=== PATIENT | female | born 1965 | race Caucasian/White ===

== ENCOUNTER 2021-10-31 10:58 | Outpatient (CLI) | payer MEDICAID, SELFPAY ==
[2021-10-31 12:09] LABS: Absolute Lymphocyte Count 1.74 X10^3/uL (0.83-4.51); Absolute Neutrophil Count 4.7 X10^3/uL (2.0-7.7); Basophil# 0.05 X10^3/uL; Basophil% 0.7 % (0-1); Eosinophil# 0.08 X10^3/uL; Eosinophils% 1.1 % (0-5); Hematocrit 39.4 % (37-47); Hemoglobin 13.3 g/dL (12.0-15.0); Lymphocyte # 1.74 X10^3/ul (0.83-4.51); Lymphocyte % 24.4 % (19-41); Mean Corp Hgb Conc 33.8 g/dL (32-36); Mean Corpuscular Hgb 31.4 pg (27.0-32.0); Mean Corpuscular Volume 92.9 fL (81-99); Mean Platelet Vol. 10.6 fl (6.2-12.0); Monocyte# 0.54 X10^3/uL; Monocyte% 7.6 % (0-10); NRBC Flagged by Analyzer 0 % (0-5); Neutrophil % 65.9 % (47-70); Platelet Count 237 K/mm3 (150-450); RBC Distribution Width CV 11.6 % (11.6-14.6); RBC Distribution Width SD 39.2 fl (35.1-43.9); Red Blood Count 4.24 M/mm3 (4.2-5.4); White Blood Count 7.1 K/mm3 (4.4-11.0)
--- NOTE | 2021-10-31 12:21 | RAD_ITS ---
STUDY: X-RAY - RIGHT SHOULDER REASON FOR EXAM: Female, 56 years old. pain for several months, after reaching around seat in the car TECHNIQUE: 4 view(s) of the shoulder. COMPARISON: None. FINDINGS: Normal glenohumeral articulation. Normal acromioclavicular joint. Normal acromion. Normal humeral head and visualized proximal humerus. The soft tissue structures are unremarkable. There is no demonstrated fracture. Normal visualized pulmonary apex. RAD/Shoulder min 2 Views IMPRESSION: Normal x-ray examination of the shoulder. Electronically Signed: Eugene Winter MD at 14:02 EST ,
[2021-10-31 12:29] LABS: ALB/GLOB Ratio 0.9 RATIO (0.9-2.4); AST(SGOT) 50 U/L (15-37); Alanine Aminotransfer ALT/SGPT 104 U/L (13-56); Albumin, Serum 3.4 g/dL (3.2-5.0); Alkaline Phosphatase 68 U/L (45-117); Anion Gap 7 (5-15); BUN 16 mg/dL (7-18); BUN/Creat Ratio 24.4 RATIO (10-20); Calcium,Total 8.9 mg/dL (8.5-10.1); Chloride 104 mmol/L (98-107); Creatinine, Serum 0.66 mg/dL (0.55-1.02); EST Glomerular Filtration Rate 99 mL/min (>60); Est Glom Filt Rate - Afr Amer 120 mL/min (>60); Globulin 3.8 g/dL (2.2-4.2); Glucose 93 mg/dL (74-106); Potassium 4.1 mmol/L (3.5-5.1); Protein, Total 7.2 g/dL (6.4-8.2); Sodium Level 138 mmol/L (136-145); T4 Free Direct 0.91 ng/dL (0.76-1.46); Thyroid Stim Hormone (TSH) 0.88 uIU/mL (0.358-3.74)
[2021-10-31 12:52] LABS: Vitamin B12 657 pg/mL (211-911)
[2021-11-02 14:31] LABS: Hepatitis B Surface Antigen Non-Reactive (Nonreactive); Hepatitis C Antibody Non-Reactive (Nonreactive)
== END 2021-10-31 23:59 | disposition home or self-care (01) ==
PROVIDERS: PCP Internal Medicine; Referring Provider Internal Medicine; Visit Provider Internal Medicine
DX: M25.511 Pain in right shoulder (principal); F41.9 Anxiety disorder, unspecified; F32.A Depression, unspecified; R74.8 Abnormal levels of other serum enzymes
CPT/HCPCS: 36415; 73030; 80053; 82607; 84439; 84443; 85025; 86803; 87340

== ENCOUNTER 2021-11-05 08:18 | Outpatient (CLI) | payer MEDICAID, SELFPAY ==
--- NOTE | 2021-11-05 08:23 | US_ITS ---
STUDY: ABDOMINAL ULTRASOUND - RIGHT UPPER QUADRANT REASON FOR VISIT: Female, 56 years old RUQ Pain TECHNIQUE: Ultrasound evaluation of the right upper quadrant was performed with real-time and static adam-scale imaging. TECHNICAL QUALITY: Adequate. COMPARISON: None. FINDINGS: Liver: The liver measures 13.4 cm. There is increased echogenicity consistent with fatty infiltration. The bile ducts are within normal limits. There is hepatic color flow. The direction of portal flow is hepatopetal. There is no demonstrated mass lesion. Gallbladder: Normal distended gallbladder. The gallbladder wall measures 1.3 mm. There is a negative sonographic Pickens''s sign. There is no pericholecystic fluid. There are no gallstones. Common Bile Duct (C.B.D.): The common bile duct measures 4.7 mm. Pancreas: Normal size of the head, body and tail of the pancreas. There is normal echogenicity of the pancreas. There is no demonstrated pancreatic mass or cyst. Right Kidney: Normal size of the right kidney. The right kidney measures 11.0 x 4.9 x 5.1 cm. Normal renal cortex. The right cortex measures 2.4 cm. There is no demonstrated renal mass or cyst. There is no right hydronephrosis. US/Abdomen Limited IMPRESSION: Fatty liver, no discrete lesion Electronically Signed: Rudi Nicole MD at 8:59 EST ,
== END 2021-11-05 23:59 | disposition home or self-care (01) ==
LOC: US 08:18
PROVIDERS: PCP Internal Medicine; Referring Provider Internal Medicine; Visit Provider Internal Medicine
DX: R10.11 Right upper quadrant pain (principal)
CPT/HCPCS: 76705

== ENCOUNTER 2021-11-14 09:22 | Outpatient (CLI) | payer MEDICAID, SELFPAY ==
[2021-11-14 12:21] LABS: AST(SGOT) 68 U/L (15-37); Alanine Aminotransfer ALT/SGPT 150 U/L (13-56); Albumin, Serum 3.5 g/dL (3.2-5.0); Alkaline Phosphatase 63 U/L (45-117); Anion Gap 4 (5-15); BUN 19 mg/dL (7-18); BUN/Creat Ratio 24.5 RATIO (10-20); Calcium,Total 8.7 mg/dL (8.5-10.1); Chloride 106 mmol/L (98-107); Cholesterol 162 mg/dL (200); Creatinine, Serum 0.77 mg/dL (0.55-1.02); EST Glomerular Filtration Rate 82 mL/min (>60); Est Glom Filt Rate - Afr Amer 100 mL/min (>60); Globulin 3.4 g/dL (2.2-4.2); Glucose 92 mg/dL (74-106); High Density Lipoprotein 67 mg/dL; Potassium 3.4 mmol/L (3.5-5.1); Protein, Total 6.9 g/dL (6.4-8.2); Sodium Level 139 mmol/L (136-145); Triglycerides 81 mg/dL; Very Low Density Lipoprotein 16 mg/dL (5-40)
== END 2021-11-14 23:59 | disposition home or self-care (01) ==
LOC: BIMLAB 09:23
PROVIDERS: PCP Internal Medicine; Referring Provider Internal Medicine; Visit Provider Internal Medicine
DX: R74.8 Abnormal levels of other serum enzymes (principal); K76.0 Fatty (change of) liver, not elsewhere classified
CPT/HCPCS: 36415; 80053; 80061

== ENCOUNTER 2021-11-14 11:30 | Outpatient (RCR) | payer MEDICAID, SELFPAY ==
--- NOTE | 2021-11-07 12:03 | HP.PTEVAL ---
Patient's Visit Information TREY DOUGHERTY is a 56 year old F referred to Physical Therapy by Dr. Hanna Nuñez MD with a diagnosis of Pain in R shoulder. Date of Evaluation: 11/07/21 Physical Therapist: BRENDON Willams - Visit Plan Frequency: 1-2x /Week Duration: 4 Weeks Plan: 1-2X/ week for 4 weeks or as needed due to high co-pay for postural exercises, R RC and scapular strength, R shoulder PROM, AAROM AROM with HEP - Subjective They moved back last summer from [place] and started with mary ann Vogel and she is helping her with all kinds of things. She discussed R shoulder issue that happened in June. She was seat belted in the car and she reached and IR the R arm to reach for something. She did not hear anything but has burning sensation. She is having trouble with w coffee cup or lifting something in the fridge. She is having a compression problems in her spine that puts her out of commission and it always hurts when lifts something over 20#. She is moving now and better but she was down for 48 hours. Her insurance is $100 per visit so she needs HEP. The thoracic is what causes [place] and causes her not to be able to go to [facility]. She is having some fatty liver issues and not able to take a lot of pain meds. They did an x-ray and was fine for her R shoulder. She did not get an X-ray of thoracic. She gets those episodes about 3-4 of them over the last couple of weeks since the move. She does a lot of sitting throughout the day. Pt is a right side sleeper with arm overhead but cannot do that now. She lays on heat on her back over thoracic area also. She is not sleeping cause she is on new meds and causing her to speed up a little bit but she is getting used to the meds. - Pain R shoulder pain Pain Intensity (Out of 10): 1 Pain Intensity Range: 5 Comment: with movement over 90 degrees - Objective R handed: R 43# L 65#. Posture: sit with upright posture while in the clinic but admits to being lazy at home and slouching on the couch etc. C-spine AROM: Rot B 90%, and SB B 75% with increase tightness, Flexion 100% and ext 50%. Shoulder flexion R 120 and L 150, Abd R 96 and L 160 degrees, IR R L2 and T8, and ER R 45 and L 65. Palpation: tender under the R acrominion, not bicep groove. R UE MMT: flex 4-/5, abd 3+/5, ER 3+/5 and IR 4-/5 and L shoulder flex, abd, ER and IR 4/5. + HK on the R for anterior shoulder pain. - Balance/Special Test Scores Quick DASH Score: 52.2725 - Goals Goal 1:: I HEP Goal Time Frame: 2-4 Weeks Goal 2:: Increase R shoulder AROM to 150 degrees flexion and abduction painfree Goal Time Frame: 2-4 Weeks Goal 3:: Increase R shoulder strength by 1/2 muscle grade (at time of the eval: flex 4-/5, abd 3+/5, ER 3+/5 and IR 4-/5 ). Goal Time Frame: 4-6 Weeks Goal 4:: Be able to order picker/assembler her coffee cup with outstretched R arm without oain and weakness Goal Time Frame: 4-6 Weeks Goal 5:: Sit with upright posture during treatment sessions Goal Time Frame: 4-6 Weeks - Rehabilitation Potential Rehabilitation Potential: Good - Anticipated Interventions Patient/Client Instruction: Educate patient on: Condition, Plan of Care For the Purpose of:: To decrease pain, To increase ROM, To improve nutrient delivery to tissue, To improve muscle performance and motor function, To improve ability to perform ADL's, To increase tolerance to activity/condition/position, To improve performance and independence with ADL's, To improve health of tissue, To decrease soft tissue restriction, To increase flexibility/ROM Therapeutic Exercise to Include: Strength training, Postural training, Flexibilty training, Passive ROM, Active ROM, Scapular Strength/Stabilization For the Purpose of:: To decrease pain, To increase ROM, To improve nutrient delivery to tissue, To increase oxygenation perfusion, To improve muscle performance and motor function, To improve ability to perform ADL's, To increase tolerance to activity/condition/position, To improve performance and independence with ADL's, To improve health of tissue, To increase flexibility/ROM Manual Therapy Techniques to Include: Mobilization, Passive ROM, Soft tissue mobilization For the Purpose of:: To decrease pain, To increase ROM, To improve nutrient delivery to tissue, To improve muscle performance and motor function Thank you for the opportunity to evaluate your patient. For Medicare and Medicare HMO plans, please review the plan of care and approve it. It will need to be FAXED BACK to us at [phone] for Medicare purposes. For Medicare only, by signing this I certify the plan of care. Please let me know if there are questions or concerns regarding this plan of care. Physician Signature: Date:
--- NOTE | 2022-03-28 09:50 | HP.PTDCSUM_ITS ---
It has been my pleasure to treat TREY DOUGHERTY referred by Dr. Hanna Nuñez MD, with the diagnosis of Pain in R shoulder for a total of 2 visit(s). Discharge Date: 03/28/22 Please see the following information for a summary of their discharge status. Subjective: Corner stretch she can not do. She can not put her R arm around her . She is doing scapular squeezed and trying to open up her shoulder. She has been doing mid rows at home with green band. She wants more exercises to do at home cause she can not afford more PT. R shoulder pain Pain Intensity (Out of 10): 5 Objective/Function: Pt had a hard time with wand supine ER with a towel due to pain at end range. Pt had full understanding of HEP and not to push to far into pain Goal 1:: I HEP Goal 2:: Increase R shoulder AROM to 150 degrees flexion and abduction painfree Goal 3:: Increase R shoulder strength by 1/2 muscle grade (at time of the eval: flex 4-/5, abd 3+/5, ER 3+/5 and IR 4-/5 ). Goal 4:: Be able to apple picking supervisor her coffee cup with outstretched R arm without oain and weakness Goal 5:: Sit with upright posture during treatment sessions Plan: DC PT. Pt to call in in 3-4 weeks to let us know if needs additional PT. 1-2X/ week for 4 weeks or as needed due to high co-pay for postural exercises, R RC and scapular strength, R shoulder PROM, AAROM AROM with HEP Discharge Comments: DC PT If there are questions or concerns regarding this patient's physical therapy, please feel free to call me at [phone]. Thank you for the referral of this patient. Sincerely, Renetta Mcdonald, MPT Balance/Gait/Functional tests - Balance/Special Test Scores Quick DASH Score: [phone]
== END 2021-11-14 19:00 | disposition home or self-care (01) ==
LOC: PT 11:30
PROVIDERS: PCP Internal Medicine; Referring Provider Internal Medicine; Visit Provider Internal Medicine
DX: M25.511 Pain in right shoulder (principal)
CPT/HCPCS: 97110; 97161

== ENCOUNTER 2021-11-21 11:57 | Outpatient (CLI) | payer MEDICAID, SELFPAY ==
[2021-11-21 16:12] LABS: GGTP 36 U/L (5-55)
[2021-11-23 17:06] LABS: Anti-Smooth Muscle ABS 5 Units (0-19)
[2021-11-23 17:07] LABS: ANTINUCLEAR ANTIBODIES DIRECT Negative (Negative)
== END 2021-11-21 23:59 | disposition home or self-care (01) ==
LOC: BIMLAB 11:58
PROVIDERS: PCP Internal Medicine; Referring Provider Internal Medicine; Visit Provider Internal Medicine
DX: R74.8 Abnormal levels of other serum enzymes (principal)
CPT/HCPCS: 36415; 82977; 83516; 86038; 86225; 86235

== ENCOUNTER 2021-11-22 14:13 | Outpatient (CLI) | payer MEDICAID, SELFPAY ==
--- NOTE | 2021-11-22 14:14 | RAD_ITS ---
STUDY: X-RAY - LUMBAR SPINE REASON FOR EXAM: Female, 56 years old. Upper lumbar back pain TECHNIQUE: 2 view(s) of the lumbar spine were obtained. COMPARISON: None FINDINGS: Normal lumbar lordosis. There is no substantial scoliosis. There is a normal alignment of the vertebrae. Normal vertebral bodies and endplates. Normal disc space heights. The soft tissue structures are unremarkable. RAD/Lumbar Spine 2 or 3 Views IMPRESSION: Normal x-ray examination of the lumbar spine. Electronically Signed: Rylan Gil MD at 14:46 EDT ,
--- NOTE | 2021-11-22 14:14 | RAD_ITS ---
STUDY: X-RAY - THORACIC SPINE REASON FOR EXAM: Female, 56 years old. Midline Back pain, approximately T7 TECHNIQUE: 2 view(s) of the thoracic spine were obtained. COMPARISON: None. FINDINGS: Normal kyphosis of the thoracic spine. Mild dextroscoliosis of the upper thoracic spine. Normal thoracic vertebrae and endplates. Normal disc space heights. The soft tissue structures are unremarkable. RAD/Thoracic Spine 3 Views IMPRESSION: Mild dextroscoliosis of the upper thoracic spine. Electronically Signed: Rylan Gil MD at 14:46 EDT ,
--- NOTE | 2021-11-22 14:14 | RAD_ITS ---
STUDY: X-RAY - CERVICAL SPINE REASON FOR EXAM: Female, 56 years old. RUE paresthesia and neck pain TECHNIQUE: 5 view(s) of the cervical spine were obtained. COMPARISON: None FINDINGS: Normal anterior atlantoaxial articulation. Normal odontoid process. Normal cervical lordosis. There is multi-level endplate spondylosis. There is multi-level degenerative disc disease with multilevel disc space narrowing. Normal visualized intervertebral neuroforamina. The soft tissue structures are unremarkable. RAD/Cerv Spine 4 or 5 Views IMPRESSION: Focal degenerative disc disease at C5/C6 and MRI would be useful. Electronically Signed: Rylan Gil MD at 14:44 EDT ,
== END 2021-11-22 23:59 | disposition home or self-care (01) ==
LOC: MTRAD 14:14
PROVIDERS: PCP Internal Medicine; Referring Provider Physician Assistant; Visit Provider Physician Assistant
DX: M54.50 Low back pain, unspecified (principal); R20.2 Paresthesia of skin; M54.6 Pain in thoracic spine; M25.511 Pain in right shoulder; G89.29 Other chronic pain; M54.2 Cervicalgia
CPT/HCPCS: 72050; 72072; 72100

== ENCOUNTER 2021-11-30 14:25 | Outpatient (CLI) | payer MEDICAID, SELFPAY ==
[2021-11-30 16:18] LABS: Erythrocyte Sedimentation Rate 6 mm/hr (0-30)
[2021-11-30 16:33] LABS: Prothrombin Time (Protime)PT. 12.1 SECONDS (11.7-14.9)
[2021-11-30 16:41] LABS: CRP < 2.90 mg/L (0.0-3.0); Ferritin 382 ng/mL (8-252); LDH 191 U/L (84-246)
[2021-12-02 14:10] LABS: Anti-Centromere B Ab <0.2 AI (0.0-0.9); Anti-Chromatin <0.2 AI (0.0-0.9); Anti-Jo <0.2 AI (0.0-0.9); Anti-Scleroderma-70 AB <0.2 AI (0.0-0.9); RNP Ab 0.7 AI (0.0-0.9); SJOGREN'S Anti-SS-A test < 0.2 AI (0.0-0.9); SJOGREN'S Anti-SS-B test < 0.2 AI (0.0-0.9); Smith Ab <0.2 AI (0.0-0.9)
[2021-12-02 16:55] LABS: Anti-dsDNA Ab <1 IU/mL (0-9)
[2021-12-06 21:07] LABS: Angiotensin Convert Enzyme 37 U/L (14-82); Ceruloplasmin 34.9 mg/dL (19.0-39.0); Cytoplasmic Ab (C-ANCA) <1:20 titer (Neg:<1:20)
[2021-12-06 22:21] LABS: Anti-Smooth Muscle ABS 5 Units (0-19); Copper, Serum or Plasma 158 ug/dL (80-158); Haptoglobin 104 mg/dL (33-346); Perinuclear Ab (P-ANCA) <1:20 titer (Neg:<1:20)
== END 2021-11-30 23:59 | disposition home or self-care (01) ==
LOC: LAB 14:26
PROVIDERS: PCP Internal Medicine; Referring Provider Nurse Practitioner Adult Health; Visit Provider Nurse Practitioner Adult Health
DX: K76.0 Fatty (change of) liver, not elsewhere classified (principal)
CPT/HCPCS: 36415; 82164; 82390; 82525; 82728; 83010; 83516; 83615; 85610; 85652; 86140; 86225; 86235; 86256

== ENCOUNTER 2021-12-02 07:29 | Outpatient (CLI) | payer MEDICAID, SELFPAY ==
--- NOTE | 2021-12-02 07:31 | US_ITS ---
STUDY: ABDOMINAL ULTRASOUND - ELASTOGRAPHY REASON FOR VISIT: Female, 56 years old. Fatty infiltration of the liver. TECHNIQUE: Liver stiffness measurements were obtained on a AKT RS 85 ultrasound machine using a CA 1-7 probe following the SRU guidelines. 3 measurements were obtained using a 2-D-SWE method. The IQR/M was 25% suggesting a quality data set. TECHNICAL QUALITY: Adequate. COMPARISON: Comparison is made with prior examination dated 11/05/2021. FINDINGS: Liver: Fatty infiltration of the liver. Median liver stiffness measured 6.3 kPa. US/Elastography Parenchyma/Organ IMPRESSION: Liver stiffness measures 6.3 kPa compatible with F2-F3 (Mild to moderate liver fibrosis) Metavir score. Electronically Signed: Constantino Rosa MD at 9:11 EDT ,
== END 2021-12-02 23:59 | disposition home or self-care (01) ==
LOC: US 07:30
PROVIDERS: PCP Internal Medicine; Referring Provider Nurse Practitioner Adult Health; Visit Provider Nurse Practitioner Adult Health
DX: K76.0 Fatty (change of) liver, not elsewhere classified (principal)
CPT/HCPCS: 76981

== ENCOUNTER → 2022-01-02 | Outpatient (CLI) | payer MEDICAID, SELFPAY ==
[2022-01-02 15:59] LABS: Absolute Lymphocyte Count 1.97 X10^3/uL (0.83-4.51); Basophil# 0.05 X10^3/uL; Basophil% 0.7 % (0-1); Eosinophil# 0.03 X10^3/uL; Eosinophils% 0.4 % (0-5); Hematocrit 38.7 % (37-47); Hemoglobin 12.7 g/dL (12.0-15.0); Lymphocyte # 1.97 X10^3/ul (0.83-4.51); Lymphocyte % 25.9 % (19-41); Mean Corp Hgb Conc 32.8 g/dL (32-36); Mean Corpuscular Hgb 32.2 pg (27.0-32.0); Mean Corpuscular Volume 98.2 fL (81-99); Mean Platelet Vol. 11.4 fl (6.2-12.0); Monocyte# 0.55 X10^3/uL; Monocyte% 7.2 % (0-10); NRBC Flagged by Analyzer 0 % (0-5); Neutrophil # 4.98 X10^3/uL (2.7-7.7); Neutrophil % 65.5 % (47-70); Platelet Count 215 K/mm3 (150-450); RBC Distribution Width CV 12.1 % (11.6-14.6); RBC Distribution Width SD 43.9 fl (35.1-43.9); Red Blood Count 3.94 M/mm3 (4.2-5.4); White Blood Count 7.6 K/mm3 (4.4-11.0)
[2022-01-02 16:17] LABS: Ferritin 268 ng/mL (8-252)
== END | disposition home or self-care (01) ==
LOC: BIMLAB 13:45
PROVIDERS: PCP Internal Medicine; Visit Provider Internal Medicine
DX: R79.89 Other specified abnormal findings of blood chemistry (principal)
CPT/HCPCS: 36415; 82728; 85025

== ENCOUNTER → 2022-01-04 | Outpatient (CLI) | payer MEDICAID, SELFPAY ==
--- NOTE | 2022-01-04 11:06 | MRI_ITS ---
STUDY: MRI RIGHT SHOULDER REASON FOR EXAM: Right shoulder pain and limited range of motion. TECHNIQUE: Standardized fat and water weighted pulse sequences were obtained in all 3 orthogonal planes. COMPARISON: Radiographs 10/31/2021. FINDINGS: Normal supraspinatus tendon. Normal infraspinatus tendon. Normal subscapularis tendon. Normal teres minor tendon. Normal supraspinatus muscle. Normal infraspinatus muscle. Normal subscapularis muscle. Normal teres minor muscle. Normal glenohumeral articulation. There is a very small cyst in the greater tuberosity. Normal biceps labral complex. Normal intracapsular long biceps tendon. Normal labrum. Normal capsulo- ligamentous complex. Normal acromioclavicular articulation. There is a Type II morphology (curved), with a neutral orientation. There is a small volume of subacromial-subdeltoid bursal fluid (T2 coronal images 7-14). Normal visualized coracohumeral and coracoacromial ligaments. Normal deltoid muscle. Normal trapezius muscle. MRI/Upper Ext Joint Only(Routine) IMPRESSION: Mild subacromial-subdeltoid bursitis. No demonstrated rotator cuff tear. Electronically Signed: Chava Hardin MD at 12:48 EDT ,
== END | disposition home or self-care (01) ==
LOC: MRI 11:06
PROVIDERS: PCP Internal Medicine; Visit Provider Physician Assistant
DX: M25.511 Pain in right shoulder (principal)
CPT/HCPCS: 73221

== ENCOUNTER 2022-03-01 08:30 | Day surgery (SDC) | payer MEDICAID, SELFPAY ==
[2022-03-01] VITALS (9 sets, daily range): BP systolic 80–107; BP diastolic 49–71; PULSE 56–73; RESP 16; TEMP 36.1–36.3; O2SAT 98–100; BMI 18.8
[2022-03-01] MEDS: Lactated Ringers 1,000 ML 15 ML IV (08:54)
--- NOTE | 2022-03-01 09:06 | HP.PCM_ITS ---
History and Physical Date of Admission: 03/01/22 TREY DOUGHERTY, is a 56 F who presents to the office today for new diagnosis of fatty liver, episodes of RUQ pain, difficulty swallowing Fatty liver--AST and ALT were found to be elevated when labs were done for her checkup.? AST 68, ALT 150.? GGT normal at 36.? Alk phos normal 63.? Bili normal 0.6.? Right upper quadrant ultrasound showed liver 13.4 cm, fatty infiltration.? Normal gallbladder. Dysphagia--Getting episodes of difficulty swallowing especially potatoes, in past 4-5 mos. Has heartburn, new in past year. No nausea or vomiting. Has increased stress. Band of burning pain across upper abd, hurts if it gets bumped (costochondritis on exam) No change in bowels, has BM every other day. Has internal hemorrhoids that prolapse, started with difficult deliveries 30 yrs ago, wonders if they could be banded when she gets colonoscopy. Hasn't had a screening colonoscopy. RUQ pain --has had a few episodes of RUQ pain with vomiting and diarrhea, resolved spontaneously, better since avoiding greasy foods She took indomethacin since 2003 until very recently hemicran[facility], will now just take indomethacin prn for flares of pain ROS Const Constitutional: No fatigue Gastro GI: Positive for abdominal pain and heartburn Genitourinary-Female: Positive for urinary frequency Musc Musculoskeletal: Positive for numbness and tingling; No joint pain Skin Skin: No yellowing of the eye or itchy eyes Neuro Neurology: Positive for numbness, tingling and tremor(s) Psych Psychiatric: Positive for anxiety and Positive for depression Endo Endocrine: No fatigue Aller/Imm Allergy/Immunologic: No itchy eyes Julio Cesar/Lymp Hematologic/Lymphatic: No easy bleeding or easy bruising Exam Const General: cooperative, healthy appearing, no acute distress, well developed and well groomed Eyes Conjunctivae: conjunctivae normal Sclera: sclerae normal Resp Effort & Inspection: normal respiratory effort GI Inspection: normal to inspection Palpation: soft and nontender Musc Other: tender rib cartilage bilat anterior lower ribs and along sternum Quality Reporting Tobacco Screening ([facility] 138) Smoking Status: Never smoker Assessment and Plan Assessment and Plan (1) Fatty liver disease, nonalcoholic: ?Status:?Acute ? ? ? Orders:?Orders: ? Elastography Parenchyma/Organ Today ? ? ? LDH Today ? ? ? Prothrombin Time w/INR Today ? ? ? DIEGO Comprehensive Panel Today ? ? ? Angiotensin Convert Enzyme Today ? ? ? ANCA Today ? ? ? Anti-Smooth Muscle ABS Today ? ? ? Ceruloplasmin Today ? ? ? Copper, Serum or Plasma Today ?A ? ? Haptoglobin Today ? ? ? Ferritin Today ? ? ? CRP Today ? ? ? Erythrocyte Sed Rate Today ?Plan - Khushbu Suazo SAFETY AND HEALTH MANAGER, SAFETY AND HEALTH MANAGER-C: 56 yr old female with elevated AST and ALT, fatty liver on US. No alcohol, obesity, DM or dyslipidemia. Will complete biochemical w/u and will get liver elastography. Treatment based on results. We will call her with results. (2) Elevated liver enzymes: ?Status:?Acute ?Plan - Khushbu Suazo NP, SAFETY AND HEALTH MANAGER-C: Eval as for fatty liver (3) RUQ pain: ?Status:?Chronic ?Plan - Khushbu Suazo NP, SAFETY AND HEALTH MANAGER-C: Not occurring if she avoids fatty foods. Will get HIDA scan if persists. (4) Dysphagia: ?Status:?Acute ?Plan - Khushbu Suazo NP, SAFETY AND HEALTH MANAGER-C: Recent onset of occasional difficulty swallowing starchy foods. Will start PPPI. Will get EGD to evaluate for esophagitis, Michelle's, gastritis. Will also get screening colonoscopy. Hemorrhoid banding can be done then if needed. f/u 2 wks after endoscopy. I have re-examined the patient. There are no clinical changes since date of exam.
--- NOTE | 2022-03-01 09:30 | IMM_PTH ---
PATIENT: TREY DOUGHERTY LOC: EN U#:[id number] AGE/SX: 56/F ROOM: RE03/01/[address]: Dr. Elvis Dietrich DO : 1965 BED: DIS: 03/01/2022 SPEC #: [id number] RECD: 03/01/22 13:51 STATUS: ELIAS REQ #: [id number] NATALIA: 03/01/22 09:[address]: Elvis Dietrich DEPT: IMMUNOHISTOCHEMISTRY RECD BY: Nicky Aguilar ENTERED: 03/01/22 13:52 SP TYPE: IMMUNO OTHR DR: Dr. Hanna Nuñez MD Tissues: A - Stomach, NOS Procedures: H Pylori (initial) PHYSICIAN & INSTITUTION [place] [address] SPECIMEN INFORMATION: Tissue Source: A ? Gastric body biopsy Clinical Info: Elevated liver enzymes, RUQ pain, dysphagia Specimen Number: [id number] CPT code: 52804 METHODOLOGY: Deparaffinized sections of prefer/formalin-fixed tissue or PAP/DQ stained slides are incubated with monoclonal/polyclonal antibodies/oligonucleotide probes. Localization is made via biotin free immunoperoxidase method. Appropriate controls are performed and reacted as expected. Results on target cell population are indicated in the following table: RESULTS: ANTIBODY / CLONE RESULT Block A H Pylori (polyclonal) negative These tests were developed and their performance characteristics determined by [facility]. They may not have been cleared or approved by the U.S. Food and Drug Administration. The FDA has determined that such clearance or approval is not necessary. The above immunohistochemical/dualISH markers are ordered and reviewed by the Pathologist. INTERPRETATION: A. Gastric body, biopsy: Negative for Helicobacter pylori organisms. AM:bryant 03/02/2022
--- NOTE | 2022-03-01 09:30 | COLBX_PTH ---
PATIENT: TREY DOUGHERTY LOC: EN U#:[id number] AGE/SX: 56/F ROOM: RE03/01/[address]: Dr. Elvis Dietrich DO : 1965 BED: DIS: 03/01/2022 SPEC #: [id number] RECD: 03/01/22 13:28 STATUS: ELIAS MARTHA #: [id number] NATALIA: 03/01/22 09:[address]: Elvis Dietrich DEPT: SURGICAL PATHOLOGY RECD BY: Elma Salmeron ENTERED: 03/01/22 13:54 SP TYPE: COLON BX OTHR DR: Dr. Hanna Nuñez MD Tissues: A - Gastric mucous membrane B - Gastric mucous membrane C - Duodenum, NOS D - Esophagus, NOS Procedures: Special Stain Group II Surgery Specimen Level IV Alcian Blue/PAS (control) HEADER OPERATION: Colonoscopy, EGD, biopsies (MAC), hemorrhoid banding PRE-OP DIAGNOSIS: Elevated liver enzymes, RUQ pain, dysphagia TISSUE SUBMITTED: A ? Gastric body biopsy, B ? Gastric pylorus biopsy, C ? Duodenum biopsy, D ? Distal esophagus biopsy MICROSCOPIC DIAGNOSIS A. Gastric body, biopsy: Mild chronic gastritis. See comment. B. Gastric pylorus, biopsy: Mild chronic inflammation. C. Duodenum, biopsy: No pathologic change. D. Distal esophagus, biopsy: Gastroesophageal junctional mucosa with mild chronic inflammation. No evidence of goblet cell metaplasia. See comment. AM:bryant 03/02/2022 COMMENT A. The results of immunohistochemistry for Helicobacter pylori will be reported separately ([id number]). D. Alcian blue/PAS stain with matched control supports the above diagnosis. MICROSCOPIC DESCRIPTION Slides are reviewed. GROSS DESCRIPTION A - Received in fixative is one container labeled with the patient's name and designated gastric body biopsy. The specimen consists of two irregular fragments of light espinal soft tissue that in aggregate measure 0.6 x 0.3 x 0.1 cm. The specimen is totally submitted in one cassette. B - Received in fixative is one container labeled with the patient's name and designated gastric pylorus biopsy. The specimen consists of one irregular fragment of light espinal soft tissue that measures 0.3 x 0.3 x 0.1 cm. The specimen is totally submitted in one cassette. C - Received in fixative is one container labeled with the patient's name and designated duodenum biopsy. The specimen consists of multiple irregular fragments of light espinal soft tissue that in aggregate measure 0.5 x 0.5 x 0.1 cm. The specimen is totally submitted in one cassette. D - Received in fixative is one container labeled with the patient's name and designated distal esophagus biopsy. The specimen consists of two irregular fragments of light espinal soft tissue that in aggregate measure 0.6 x 0.3 x 0.1 cm. The specimen is totally submitted in one cassette. / SJ:rg 03/01/2022 TC:3 CPT: 82624 x4, 74917
--- NOTE | 2022-03-01 10:45 | OP.EGD_ITS ---
Patient Name: Jaylin West Procedure Date: 03/01/2022 9:56 AM Date of : 1965 Age: 56 Procedure: Upper GI endoscopy Indications: Epigastric abdominal pain, Dysphagia, Suspected esophageal reflux Providers: Elvis Dietrich DO Medicines: Monitored Anesthesia Care Patient Profile: This is a 56 year old female. Refer to note in patient chart for documentation of history and physical. Complications: No immediate complications. Procedure: Pre-Anesthesia Assessment: - Prior to the procedure, a History and Physical was performed, and patient medications and allergies were reviewed. The risks and benefits of the procedure and the sedation options and risks were discussed with the patient. All questions were answered and informed consent was obtained. Patient identification and proposed procedure were verified by the physician in the pre-procedure area. Mental Status Examination: alert and oriented. Airway Examination: normal oropharyngeal airway and neck mobility. Respiratory Examination: clear to auscultation. CV Examination: normal. Prophylactic Antibiotics: The patient does not require prophylactic antibiotics. Prior Anticoagulants: The patient has taken no previous anticoagulant or antiplatelet agents. ASA Grade Assessment: II - A patient with mild systemic disease. After reviewing the risks and benefits, the patient was deemed in satisfactory condition to undergo the procedure. The anesthesia plan was to use moderate sedation / analgesia (conscious sedation). Immediately prior to administration of medications, the patient was re-assessed for adequacy to receive sedatives. The heart rate, respiratory rate, oxygen saturations, blood pressure, adequacy of pulmonary ventilation, and response to care were monitored throughout the procedure. The physical status of the patient was re-assessed after the procedure. After obtaining informed consent, the endoscope was passed under direct vision. Throughout the procedure, the patient's blood pressure, pulse, and oxygen saturations were monitored continuously. The colonoscope was introduced through the mouth, and advanced to the second part of duodenum. The upper GI endoscopy was accomplished without difficulty. The patient tolerated the procedure well. Scope In: 9:59:54 AM Scope Out: 10:05:36 AM Total Procedure Duration Time 0 hours 5 minutes 42 seconds Findings: LA Grade A (one or more mucosal breaks less than 5 mm, not extending between tops of 2 mucosal folds) esophagitis with no bleeding was found 36 to 38 cm from the incisors. Biopsies were taken with a cold forceps for histology. Verification of patient identification for the specimen was done. Estimated blood loss was minimal. A mild Schatzki ring was found in the lower third of the esophagus. A guidewire was placed and the scope was withdrawn. Dilation was performed with a Savary dilator with no resistance at 33 Fr. The dilation site was examined and showed moderate improvement in luminal narrowing. Estimated blood loss was minimal. Patchy mildly erythematous mucosa without bleeding was found in the gastric antrum and at the pylorus. Biopsies were taken with a cold forceps for histology. Verification of patient identification for the specimen was done. Estimated blood loss was minimal. The first portion of the duodenum was normal. Biopsies were taken with a cold forceps for histology. Verification of patient identification for the specimen was done. Estimated blood loss was minimal. Impression: - LA Grade A reflux esophagitis. Biopsied. - Mild Schatzki ring. Dilated. - Erythematous mucosa in the antrum and pylorus. Biopsied. - Normal first portion of the duodenum. Biopsied. Recommendation: - Discharge patient to home. - Resume previous diet. - Continue present medications. - Await pathology results. Procedure Code(s): --- Professional --- 05347, Esophagogastroduodenoscopy, flexible, transoral; with insertion of guide wire followed by passage of dilator(s) through esophagus over guide wire 57737, 59,51, Esophagogastroduodenoscopy, flexible, transoral; with biopsy, single or multiple CPT copyright 2017 [employer] [place] [employer]. All rights reserved. The codes documented in this report are preliminary and upon residential tech review may be revised to meet current compliance requirements. Elvis Dietrich DO 03/01/2022 10:45:04 AM This report has been signed electronically. Number of Addenda: 1 Note Initiated On: 03/01/2022 9:56 AM Addendum Number: 1 Addendum Date: 06/06/2022 6:02:08 AM MAC was used as sedation for this procedure. Elvis Dietrich DO 06/06/2022 6:02:13 AM This report has been signed electronically.
--- NOTE | 2022-03-01 10:46 | OP.CCLET_ITS ---
06/06/2022 Hanna Nuñez MD [address] [place] [address] [place] [address] Re : Upper GI endoscopy procedure for Jaylin West Dear Dr. Nuñez This procedure was performed on Tuesday, March 01, 2022. My impressions and recommendations are as follows: Impressions : - LA Grade A reflux esophagitis. Biopsied. - Mild Schatzki ring. Dilated. - Erythematous mucosa in the antrum and pylorus. Biopsied. - Normal first portion of the duodenum. Biopsied. Recommendations : - Discharge patient to home. - Resume previous diet. - Continue present medications. - Await pathology results. My findings are described in the full procedure note, which is enclosed. If I can be of further assistance, please feel free to contact me at . Sincerely, Elvis Dietrich, 03/01/2022 10:45:04 AM This report has been signed electronically.
--- NOTE | 2022-03-01 10:50 | OP.COLON_ITS ---
Patient Name: Jaylin West Procedure Date: 03/01/2022 10:05 AM Date of : 1965 Age: 56 Procedure: Colonoscopy Indications: Screening for colorectal malignant neoplasm Providers: Elvis Dietrich DO Medicines: Monitored Anesthesia Care Patient Profile: This is a 56 year old female. Refer to note in patient chart for documentation of history and physical. Last Colonoscopy: none. The patient's first colonoscopy is today. Complications: No immediate complications. Procedure: Pre-Anesthesia Assessment: - Prior to the procedure, a History and Physical was performed, and patient medications and allergies were reviewed. The risks and benefits of the procedure and the sedation options and risks were discussed with the patient. All questions were answered and informed consent was obtained. Patient identification and proposed procedure were verified by the physician in the pre-procedure area. Mental Status Examination: alert and oriented. Airway Examination: normal oropharyngeal airway and neck mobility. Respiratory Examination: clear to auscultation. CV Examination: normal. Prophylactic Antibiotics: The patient does not require prophylactic antibiotics. Prior Anticoagulants: The patient has taken no previous anticoagulant or antiplatelet agents. ASA Grade Assessment: II - A patient with mild systemic disease. After reviewing the risks and benefits, the patient was deemed in satisfactory condition to undergo the procedure. The anesthesia plan was to use moderate sedation / analgesia (conscious sedation). Immediately prior to administration of medications, the patient was re-assessed for adequacy to receive sedatives. The heart rate, respiratory rate, oxygen saturations, blood pressure, adequacy of pulmonary ventilation, and response to care were monitored throughout the procedure. The physical status of the patient was re-assessed after the procedure. After I obtained informed consent, the scope was passed under direct vision. Throughout the procedure, the patient's blood pressure, pulse, and oxygen saturations were monitored continuously. The colonoscope was introduced through the anus and advanced to the cecum, identified by the appendiceal orifice, IC valve and transillumination. The colonoscopy was performed without difficulty. The patient tolerated the procedure well. The quality of the bowel preparation was good. Scope In: 10:08:39 AM Scope Withdrawal Time 0 hours 16 minutes 8 seconds Scope Out: 10:30:50 AM Total Procedure Duration Time 0 hours 22 minutes 11 seconds Findings: Hemorrhoids were found on perianal exam. Bleeding internal hemorrhoids were found during retroflexion. The hemorrhoids were medium-sized and Grade III (internal hemorrhoids that prolapse but require manual reduction). A hemorrhoid was isolated with endoscopy. The KAYA ligator was positioned over the hemorrhoid at the left lateral position. Suction was applied and one rubber band was placed over the hemorrhoid. This was checked to make certain that the muscularis was free of the band. Post-banding digital rectal exam showed band in good position. There were no complications. There was no bleeding. The patient tolerated the procedure well. The patient appeared stable and comfortable at the end of the procedure. The exam was otherwise without abnormality on direct and retroflexion views. Impression: - Hemorrhoids found on perianal exam. - Bleeding internal hemorrhoids. Banded. - The examination was otherwise normal on direct and retroflexion views. - No specimens collected. Recommendation: - Discharge patient to home. - Resume previous diet. - Continue present medications. - Repeat colonoscopy in 10 years for screening purposes. Procedure Code(s): --- Professional --- 83079, Colonoscopy, flexible; with band ligation(s) (eg, hemorrhoids) CPT copyright 2017 [employer]. All rights reserved. The codes documented in this report are preliminary and upon show host review may be revised to meet current compliance requirements. Elvis Dietrich DO 03/01/2022 10:49:37 AM This report has been signed electronically. Number of Addenda: 1 Note Initiated On: 03/01/2022 10:05 AM Addendum Number: 1 Addendum Date: 06/06/2022 6:02:21 AM MAC was used as sedation for this procedure. Elvis Dietrich DO 06/06/2022 6:02:27 AM This report has been signed electronically.
--- NOTE | 2022-03-01 10:51 | OP.CCLET_ITS ---
06/06/2022 Hanna Nuñez MD [address] [place] [address] [place] [address] Re : Colonoscopy procedure for Jaylin West Dear Dr. Nuñez This procedure was performed on Tuesday, March 01, 2022. My impressions and recommendations are as follows: Impressions : - Hemorrhoids found on perianal exam. - Bleeding internal hemorrhoids. Banded. - The examination was otherwise normal on direct and retroflexion views. - No specimens collected. Recommendations : - Discharge patient to home. - Resume previous diet. - Continue present medications. - Repeat colonoscopy in 10 years for screening purposes. My findings are described in the full procedure note, which is enclosed. If I can be of further assistance, please feel free to contact me at . Sincerely, Elvis Dietrich, 03/01/2022 10:49:37 AM This report has been signed electronically.
[2022-03-01] MEDS: Acetaminophen 500 MG Tablet 1000 MG PO (11:19)
== END 2022-03-01 11:49 | disposition home or self-care (01) ==
LOC: EN 08:31 → AC 08:32
PROVIDERS: PCP Internal Medicine; Referring Provider Internal Medicine; Visit Provider Internal Medicine Gastroenterology
PROC: 0DJD8ZZ Inspection of Lower Intestinal Tract, Via Natural or Artificial Opening Endoscopic (ICD-10-PCS; CPT 45378; principal; 2022-03-01 09:25)
DX: Z12.11 Encounter for screening for malignant neoplasm of colon (principal); K22.2 Esophageal obstruction; K21.00 Gastro-esophageal reflux disease with esophagitis, without bleeding; K64.2 Third degree hemorrhoids; K29.50 Unspecified chronic gastritis without bleeding; R13.10 Dysphagia, unspecified; K76.0 Fatty (change of) liver, not elsewhere classified; R10.13 Epigastric pain; Z79.899 Other long term (current) drug therapy
CPT/HCPCS: 45398; 43239; 43248; 88305; 88313; 88342; J7120; J2405

== ENCOUNTER → 2022-03-22 | Outpatient (CLI) | payer MEDICAID, SELFPAY ==
[2022-03-22 16:51] LABS: Absolute Lymphocyte Count 2.01 X10^3/uL (0.83-4.51); Absolute Neutrophil Count 6.2 X10^3/uL (2.0-7.7); Basophil# 0.05 X10^3/uL; Basophil% 0.6 % (0-1); Eosinophil# 0.07 X10^3/uL; Eosinophils% 0.8 % (0-5); Hematocrit 41.4 % (37-47); Hemoglobin 13.6 g/dL (12.0-15.0); Lymphocyte # 2.01 X10^3/ul (0.83-4.51); Lymphocyte % 22.3 % (19-41); Mean Corp Hgb Conc 32.9 g/dL (32-36); Mean Corpuscular Hgb 32.6 pg (27.0-32.0); Mean Corpuscular Volume 99.3 fL (81-99); Mean Platelet Vol. 10.8 fl (6.2-12.0); Monocyte# 0.62 X10^3/uL; Monocyte% 6.9 % (0-10); NRBC Flagged by Analyzer 0 % (0-5); Neutrophil # 6.23 X10^3/uL (2.7-7.7); Platelet Count 247 K/mm3 (150-450); RBC Distribution Width CV 11.9 % (11.6-14.6); RBC Distribution Width SD 43.4 fl (35.1-43.9); Red Blood Count 4.17 M/mm3 (4.2-5.4)
[2022-03-22 19:39] LABS: ALB/GLOB Ratio 1.1 RATIO (0.9-2.4); AST(SGOT) 23 U/L (15-37); Alanine Aminotransfer ALT/SGPT 40 U/L (13-56); Albumin, Serum 3.4 g/dL (3.2-5.0); Alkaline Phosphatase 62 U/L (45-117); Anion Gap 7 (5-15); BUN 23 mg/dL (7-18); BUN/Creat Ratio 29.2 RATIO (10-20); Calcium,Total 9.2 mg/dL (8.5-10.1); Chloride 110 mmol/L (98-107); Creatinine, Serum 0.79 mg/dL (0.55-1.02); EST Glomerular Filtration Rate 81 mL/min (>60); Est Glom Filt Rate - Afr Amer 97 mL/min (>60); Ferritin 162 ng/mL (8-252); Globulin 3.1 g/dL (2.2-4.2); Glucose 126 mg/dL (74-106); Potassium 3.8 mmol/L (3.5-5.1); Protein, Total 6.5 g/dL (6.4-8.2); Sodium Level 143 mmol/L (136-145)
== END | disposition home or self-care (01) ==
LOC: BIMLAB 15:54
PROVIDERS: PCP Internal Medicine; Referring Provider Internal Medicine; Visit Provider Internal Medicine
DX: R79.89 Other specified abnormal findings of blood chemistry (principal); R74.8 Abnormal levels of other serum enzymes; K76.0 Fatty (change of) liver, not elsewhere classified
CPT/HCPCS: 36415; 80053; 82728; 85025

== ENCOUNTER 2022-10-17 13:54 | Emergency (ER) | payer BC, SELFPAY ==
[2022-10-17 13:55] VITALS: BP 107/62; PULSE 86; RESP 18; TEMP 36.4; O2SAT 100; BMI 16.7
--- NOTE | 2022-10-17 14:46 | EX.ED.VIS.PS ---
HPI HPI - Psych History of Present Illness Chief Complaint: Suicidal Informant: patient and family Onset/Context/Timing Onset: Month(s) and - (Over the last year.) Context: Gradual Onset Timing: Continuous Current Severity: Moderate Maximum Severity: Moderate Associated Symptoms Associated Symptoms - Psych: Positive for Depressed and Suicidal Thoughts Specific plan (suicidal thought): Jump off a building or shoot herself. She has a gun at home. Narrative Narrative: 57-year-old female history of anxiety and depression. Chronic headaches. States that she has had suicidal thoughts for a year. It is gotten to the point where she does not think she can control it and might actually harm herself. She denies any prior attempts. She is considering jumping off an 8 story building. She also has a purchased loaded handgun at her home. She was already evaluated today by crisis. They sent her in for medical clearance. She is on Prozac from her primary care physician and does not believe that is controlling her symptoms. She denies any attempt or overdose attempt. Patient states if I am going to do it I am going to do it right. Prior similar symptoms: Yes Recent Illness/Hospitalization: No PFSH PFSH Medical History Adhesive capsulitis of right shoulder Anemia Anxiety Anxiety and depression Breast cyst Cardiology follow-up encounter Cervical radiculopathy Depression Difficulty swallowing Dysphagia Elevated liver enzymes Fatty liver Fatty liver disease, nonalcoholic Frequent headaches Gastric reflux H/O emotional problems Headache Health care maintenance Hemicrania continua History of skin cancer History of stress test Non-smoker Right shoulder pain RUQ pain Subacromial bursitis of right shoulder joint Home Medications meloxicam 15 mg tablet (Mobic) 15 mg PO DAILY #30 tabs 06/05/22 [Rx Last Taken Unknown] topiramate 25 mg tablet (Topamax) 25 mg PO BID #180 tabs 06/19/22 [Rx Last Taken Unknown] estradiol 2 mg tablet 2 mg PO BID #180 tabs 07/17/22 [Rx Last Taken Unknown] indomethacin 25 mg capsule 25 mg PO ONCE PRN headache #90 caps 07/26/22 [Rx Last Taken Unknown] venlafaxine 75 mg capsule,extended release 24 hr 75 mg PO DAILY #90 caps 09/11/22 [Rx Last Taken Unknown] Allergy/AdvReac Type Severity Reaction Status Date / Time iodine Allergy Intermediate Hives Verified 10/17/22 13:58 promethazine [From Phenergan] Allergy Mild Nausea Verified 10/17/22 13:58 Family History Father Skin cancer Surgical History History of hysterectomy History of tonsillectomy Social History Smoking Status: Never smoker alcohol intake: never substance use type: does not use what type of physical activity do you participate in: none ROS ROS ED ROS Narrative Denies recent illness. Constitutional Constitutional ED: Denies chills Eyes Eyes: Denies blurry vision Cardiovascular Cardiovascular: Denies chest pain Respiratory/Chest Respiratory/Chest: Denies cough Gastrointestinal Gastrointestinal: Denies abdominal pain Genitourinary Genitourinary ED: Denies dysuria or hematuria Musculoskeletal Musculoskeletal: Denies arthralgias Integumentary Denies abscess or Abrasions Neurologic Neurologic: Denies headache(s) Psychiatric Psychiatric: Denies anxiety Endocrine Endocrinology: Denies polydipsia Hematologic/Lymphatic Hematologic/Lymphatic: Denies easy bleeding Allergic/Immunologic Allergic/Immunologic ED: Denies mouth swelling or tongue swelling EXAM Physical Exam Narrative Exam Narrative: 57-year-old female no acute distress. Son at bedside. H EENT exam unremarkable atraumatic. Pupils round reactive light. No smell of alcohol. Neck nontender no signs of trauma. No lymphadenopathy. Lungs clear to auscultation bilaterally. Heart regular rhythm rate about 85 no murmur. Chest wall nontender. Abdomen soft nontender. Moving all 4 extremities. No lacerations nor any track donis. Back nontender. Neurologically she is awake and alert. Cooperative. Makes good eye contact. Calm and collected. Const Vital Signs: 10/17/22 13:55 Temperature 97.5 F L Temperature Source Temporal Pulse Rate 86 Respiratory Rate 18 Blood Pressure 107/62 Blood Pressure Mean 77 Pulse Ox 100 Oxygen Delivery Method Room Air Positive well nourished and well developed; Negative for obese, cachectic, contractures or unkempt General Appearance ED: well developed and NAD; Negative for unkempt, cachectic, contractures or pallor Nutritional Appearance: Negative for cachectic or obese HEENT Reports moist mucous membranes normocephalic and atraumatic; Negative for trauma or tenderness Eyes PERRL and EOMs intact bilaterally General Eye ED: Negative for pale conjunctiva or scleral icterus Neck no lymphadenopathy, supple and no JVD General: Negative for tenderness Resp normal respiratory effort and clear to auscultation bilaterally Effort and Inspection: Negative for retractions Auscultation: Negative for rales, rhonchi or wheezes Cardio S1 normal heart sound, S2 normal heart sound and no murmurs Palpation: Negative for other Rate: regular rate Rhythm: regular rhythm GI non-tender, non-distended and no masses Inspection: Negative for abdominal distention Auscultation: normoactive bowel sounds Palpation: soft; Negative for tender or guarding Back/Spine no CVA tenderness General Back: Negative for CVA tenderness Cervical Spine: Negative for cervical spine tenderness Thoracic Spine / Upper Back: Negative for thoracic spinal tenderness Lumbar Spine / Lower Back: Negative for lumbar spinal tenderness Coccyx: Negative for other Extremity normal to inspection General Extremety ED: Negative for edema, tenderness or other findings General Extremity: Negative for edema or other findings Neuro oriented x3, CN's II-XII intact bilaterally and no sensory deficits noted Sensorium / Orientation: alert, oriented to person, oriented to place and oriented to time; Negative for orientation impaired, confused, lethargic or stuporous Motor Exam: strength 5/5 throughout Psych mental status grossly normal, cooperative, affect normal, speech normal, activity/motor behavior normal and denies hallucinations; Negative for denies suicidal ideation Appearance: grossly normal; Negative for unkempt Attitude: calm, engaged, No paranoid, No withdrawn, No bizarre, No uncooperative, No evasive, No guarded, No belligerent, No agitated, No aggressive and No other Activity / Motor Behavior: appropriate eye contact Speech: normal speech, No incoherent, No excessive, No minimal, No slow, No rapid and No soft Mood & Affect: depressed Thought Process: normal thought process Thought Content: suicidality Attention / Concentration: attention grossly intact Memory / Cognition: memory grossly intact Insight: insight good Judgement: judgement good Skin General Skin Exam: Negative for jaundice or pallor Lesions: no lesions Rashes: no rashes Trauma: Negative for abrasion or laceration MDM MDM MDM Narrative Medical decision making narrative: 57-year-old female history of depression on Prozac year-long history of symptoms. Has a plan to either jump off a building or has a purchase loaded gun at home. I think she is a significant suicidal risk. She is medically cleared. Crisis is already evaluated her. She will get ED mental health screening labs. N/V placed to a mental health facility. She does currently have a sitter. Patient doing well at 3:55 PM. Awaiting mental health facility placement. Lab Data Attestation: I reviewed the patient's lab results. Lab results narrative: CBC normal. White count 8. H&H 14 and 44. Platelets 259. Electrolytes unremarkable gap of 7. BUN of 2 21 and creatinine is 0.9. Glucose 103. Alcohol negative. Urine tox screen negative. Labs: Laboratory Results - last 24 hr 10/17/22 10/17/22 10/17/22 14:15 14:15 14:15 WBC 8.3 RBC 4.47 Hgb 14.3 Hct 44.6 MCV 99.8 H MCH 32.0 MCHC 32.1 RDW Std Deviation 43.4 RDW Coeff of Colten 11.9 Plt Count 259 MPV 10.4 Immature Gran % (Auto) 0.500 Neut % (Auto) 65.7 Lymph % (Auto) 23.4 Toombs % (Auto) 9.3 Eos % (Auto) 0.6 Baso % (Auto) 0.5 Absolute Neuts (auto) 5.4 Absolute Lymphs (auto) 1.93 Nucleated RBC % 0 Sodium 143 Potassium 3.5 Chloride 108 H Carbon Dioxide 28.0 Anion Gap 7 BUN 21 H Creatinine 0.98 Estim Creat Clear Calc 50.49 Est GFR (MDRD) Af Amer 76 Est GFR (MDRD) Non-Af 63 BUN/Creatinine Ratio 21.5 H Glucose 103 Calcium 9.4 Urine Opiates Screen Urine Methadone Screen Ur Barbiturates Screen Ur Phencyclidine Scrn Ur Amphetamines Screen MDMA (Ecstasy) Screen U Benzodiazepines Scrn Urine Cocaine Screen U Cannabinoids Screen Ur Drug Screen Comment Ethyl Alcohol < 3.0 10/17/22 14:15 WBC RBC Hgb Hct MCV MCH MCHC RDW Std Deviation RDW Coeff of Colten Plt Count MPV Immature Gran % (Auto) Neut % (Auto) Lymph % (Auto) Toombs % (Auto) Eos % (Auto) Baso % (Auto) Absolute Neuts (auto) Absolute Lymphs (auto) Nucleated RBC % Sodium Potassium Chloride Carbon Dioxide Anion Gap BUN Creatinine Estim Creat Clear Calc Est GFR (MDRD) Af Amer Est GFR (MDRD) Non-Af BUN/Creatinine Ratio Glucose Calcium Urine Opiates Screen NEGATIVE Urine Methadone Screen NEGATIVE Ur Barbiturates Screen NEGATIVE Ur Phencyclidine Scrn NEGATIVE Ur Amphetamines Screen NEGATIVE MDMA (Ecstasy) Screen NEGATIVE U Benzodiazepines Scrn NEGATIVE Urine Cocaine Screen NEGATIVE U Cannabinoids Screen NEGATIVE Ur Drug Screen Comment Ethyl Alcohol Discharge Plan Triage Chief Complaint: Suicidal ED Provider: Thor Antoine Dx/Rx/DC Orders Clinical Impression: Depression, Depression with suicidal ideation Prescriptions: No Action meloxicam [Mobic] 15 mg tablet 15 mg PO DAILY Qty: 30 0RF Rx Instructions: Do not take in conjunction with other NSAIDs including indomethacin. topiramate [Topamax] 25 mg tablet 25 mg PO BID Qty: 180 1RF estradiol 2 mg tablet 2 mg PO BID Qty: 180 0RF indomethacin 25 mg capsule 25 mg PO ONCE PRN (Reason: headache) Qty: 90 0RF Rx Instructions: administer with food or milk venlafaxine 75 mg capsule,extended release 24hr 75 mg PO DAILY Qty: 90 0RF Primary Care Provider: Hanna Nuñez Referrals: Hanna Nuñez MD [Primary Care Provider] - Disposition Disposition: Psychiatric Hospital or Unit
[2022-10-17 14:56] LABS: Absolute Lymphocyte Count 1.93 X10^3/uL (0.83-4.51); Absolute Neutrophil Count 5.4 X10^3/uL (2.0-7.7); Basophil# 0.04 X10^3/uL; Basophil% 0.5 % (0-1); Eosinophil# 0.05 X10^3/uL; Eosinophils% 0.6 % (0-5); Hematocrit 44.6 % (37-47); Hemoglobin 14.3 g/dL (12.0-15.0); Lymphocyte # 1.93 X10^3/ul (0.83-4.51); Lymphocyte % 23.4 % (19-41); Mean Corp Hgb Conc 32.1 g/dL (32-36); Mean Corpuscular Volume 99.8 fL (81-99); Mean Platelet Vol. 10.4 fl (6.2-12.0); Monocyte# 0.77 X10^3/uL; Monocyte% 9.3 % (0-10); NRBC Flagged by Analyzer 0 % (0-5); Neutrophil # 5.43 X10^3/uL (2.7-7.7); Neutrophil % 65.7 % (47-70); Platelet Count 259 K/mm3 (150-450); RBC Distribution Width CV 11.9 % (11.6-14.6); RBC Distribution Width SD 43.4 fl (35.1-43.9); Red Blood Count 4.47 M/mm3 (4.2-5.4); White Blood Count 8.3 K/mm3 (4.4-11.0)
[2022-10-17 15:10] LABS: Anion Gap 7 (5-15); BUN 21 mg/dL (7-18); BUN/Creat Ratio 21.5 RATIO (10-20); Calcium,Total 9.4 mg/dL (8.5-10.1); Chloride 108 mmol/L (98-107); Creatinine, Serum 0.98 mg/dL (0.55-1.02); EST Glomerular Filtration Rate 63 mL/min (>60); Est Glom Filt Rate - Afr Amer 76 mL/min (>60); Estimated Creatinine Clearance 50.49 ml/min; Glucose 103 mg/dL (74-106); Potassium 3.5 mmol/L (3.5-5.1); Sodium Level 143 mmol/L (136-145)
[2022-10-17 15:13] LABS: Amphetamine Urine VISTA NEGATIVE (<1000 ng/mL); Barbiturate Urine VISTA NEGATIVE (< 200 ng/mL); Benzodiazepine Urine VISTA NEGATIVE (< 200 ng/mL); Cocaine Urine VISTA NEGATIVE (< 300 ng/mL); Ecstacy Urine VISTA NEGATIVE (< 500 ng/mL); Methadone Urine VISTA NEGATIVE (< 300 ng/mL); PCP Urine VISTA NEGATIVE (< 25 ng/mL); THC Urine VISTA NEGATIVE (< 50 ng/mL); Vista UDS pH Range 6
[2022-10-17 15:35] LABS: Alcohol, Blood (Medical)-Serum < 3.0 mg/dL
--- NOTE | 2022-10-17 16:46 | CM.ED ---
Addendum entered by Seble Vang 10/17/22 22:32: [facility] informed patient of her acceptance to [facility] as well as transport at 6am. Patient voiced understanding. Seble CHASE, SIDE GLUER Addendum entered by Seble Vang 10/17/22 21:33: WEST contacted [facility] Crisis staff to inquire about progress towards placement. WEST informed Elizabeth a copy of the pink slip was faxed to [facility] per their request earlier today. Elizabeth to follow up. Elizabeth with [facility] Crisis contacted [facility] with accepting information. Patient was accepted to [facility], [address], [address], [address] [id number]. WEST informed MD Gay of acceptance, nuclear unit operator to set up transportation. RN also informed of acceptance. Plan: [facility] Seble CHASE, SIDE GLUER Addendum entered by Seble Vang 10/17/22 19:33: WEST informed by nuclear unit operator [facility] was reviewing patient and needed a pink slip addressed to their facility faxed. WEST reviewed pink slip with MD Gay. WEST faxed pink slip to [facility] fax [phone] Plan: [facility] Seble CHASE, SIDE GLUER Addendum entered by Seble Vang 10/17/22 17:58: Elizabeth with [facility] Crisis informed WEST referrals were sent to [facility] as well as [facility] for review. Elizabeth to send referral to [facility] if referral is declined by other facilities. Seble CHASE, SIDE GLUER Original Note: Social Work Note WEST received a voicemail from Shahrzad at [facility], explaining patient was evaluated at their office and would need placement. WEST to fax documents to [facility] when patient is medically cleared. WEST informed MD Antoine a covid test was needed for placement, to order. Shahrzad from [facility] contacted WEST to inquire if patient was medically cleared. WEST explained patient's covid test was still pending. Shahrzad requested the documents be faxed to [facility] at their faxage number. Shahrzad explained [facility] had bed availability so a referral would go there as patient voiced interest in their facility. WEST faxed facesheet, labs, covid test and H&P to [facility] faxage number. WEST contacted [facility] Crisis and spoke with Elizabeth, informing her the documents were faxed and this process description writer has received verification that the fax sent. Elizabeth stated she would be checking for the fax and then sending a referral to [facility] for review. Plan: inpatient psych pending acceptance from facility, referral being sent to [facility]. Seble Vang MSW, JERRI
[2022-10-17 18:44] VITALS: BP 117/72; PULSE 77; RESP 16; O2SAT 95
[2022-10-17 23:31] VITALS: RESP 16; O2SAT 100
--- NOTE | 2022-10-17 23:33 | NURSING ---
report given to Heriberto at [facility].
[2022-10-17 23:43] VITALS: BP 103/63; PULSE 84; RESP 16; O2SAT 100
[2022-10-18] VITALS: RESP 17
[2022-10-18] MEDS: Zolpidem Tartrate 5 MG Tablet PO (00:15)
[2022-10-18 03:00] VITALS: RESP 16
[2022-10-18 03:41] VITALS: BP 119/84; PULSE 65; RESP 17; O2SAT 100
[2022-10-18 04:00] VITALS: RESP 14
[2022-10-18 05:00] VITALS: RESP 18
[2022-10-18 06:06] VITALS: BP 104/65; PULSE 66; RESP 16; O2SAT 98
[2022-10-18] MEDS: Meloxicam 15 MG Tablet PO (06:38)
== END 2022-10-18 07:02 ==
PROVIDERS: Emergency Provider Emergency Medicine; PCP Internal Medicine; Visit Provider Emergency Medicine
DX: R45.851 Suicidal ideations (principal); F41.9 Anxiety disorder, unspecified; R51.9 Headache, unspecified; F32.A Depression, unspecified; Z20.822 Contact with and (suspected) exposure to COVID-19
CPT/HCPCS: 80048; 80307; 82077; 85025; 87811; 99284

== ENCOUNTER → 2023-06-22 | Outpatient (CLI) | payer BC, SELFPAY ==
[2023-06-22 12:28] LABS: Absolute Lymphocyte Count 1.74 X10^3/uL (0.83-4.51); Absolute Neutrophil Count 2.7 X10^3/uL (2.0-7.7); Basophil# 0.04 X10^3/uL; Basophil% 0.8 % (0-1); Eosinophil# 0.09 X10^3/uL; Eosinophils% 1.8 % (0-5); Hematocrit 40.2 % (37-47); Hemoglobin 12.9 g/dL (12.0-15.0); Lymphocyte # 1.74 X10^3/ul (0.83-4.51); Lymphocyte % 34.7 % (19-41); Mean Corp Hgb Conc 32.1 g/dL (32-36); Mean Corpuscular Hgb 31.6 pg (27.0-32.0); Mean Corpuscular Volume 98.5 fL (81-99); Mean Platelet Vol. 10.6 fl (6.2-12.0); Monocyte# 0.41 X10^3/uL; Monocyte% 8.2 % (0-10); NRBC Flagged by Analyzer 0 % (0-5); Neutrophil # 2.72 X10^3/uL (2.7-7.7); Neutrophil % 54.3 % (47-70); Platelet Count 206 K/mm3 (150-450); RBC Distribution Width SD 43.8 fl (35.1-43.9); Red Blood Count 4.08 M/mm3 (4.2-5.4)
[2023-06-22 12:44] LABS: Anion Gap 4 (5-15); BUN 28 mg/dL (7-18); BUN/Creat Ratio 35.7 RATIO (10-20); Calcium,Total 9.1 mg/dL (8.5-10.1); Chloride 110 mmol/L (98-107); Creatinine, Serum 0.78 mg/dL (0.55-1.02); EST Glomerular Filtration Rate 81 mL/min (>60); Est Glom Filt Rate - Afr Amer 97 mL/min (>60); Glucose 95 mg/dL (74-106); Potassium 4.4 mmol/L (3.5-5.1); Sodium Level 142 mmol/L (136-145)
== END | disposition home or self-care (01) ==
LOC: BIMLAB 10:59
PROVIDERS: PCP Internal Medicine; Referring Provider Internal Medicine; Visit Provider Internal Medicine
DX: F41.9 Anxiety disorder, unspecified (principal); F32.A Depression, unspecified
CPT/HCPCS: 36415; 80048; 85025

== ENCOUNTER → 2023-07-13 | Outpatient (CLI) | payer BC, SELFPAY ==
[2023-07-13 08:07] VITALS: BP 87/53; PULSE 50; RESP 16; TEMP 36.7; O2SAT 98; BMI 17.9
[2023-07-13] MEDS: Lactated Ringers 1,000 ML 15 ML IV ×3 (08:27→08:59)
--- NOTE | 2023-07-13 08:27 | PCM.HP.BLA ---
History and Physical Date of Admission: 07/13/23 Date of Service: 06/28/23 MR#: [id number] Acct: [id number] Name: TREY DOUGHERTY Rep #: [id number] : 1965 Provider: Dr. Brittaney Martinez MD Age/Sex: 57/F Location: [facility] Status: Signed Intake Vital Signs 06/22/2310:25 06/28/2309:36 Height 5 ft 8 in 5 ft 8 in Weight: 119 lb 120 lb BMI 18.1 18.2 BP 92/68 102/68 Blood Pressure Location Lt brachial Rt brachial Position Sitting Sitting Respiration 16 17 Pulse 68 58 L Pulse Source Monitor Monitor Temp 98.6 F 97.4 F L Temp Source Temporal Temporal Pulse Oximetry (%) 97 99 Oxygen Delivery Method room air room air Intake Visit Reasons: Hemorrhoids Chief Complaint: hemorrhoids Is patient in pain?: No Allergies iodine Allergy (Intermediate, Verified 06/28/23 09:37) Hivespromethazine [From Phenergan] Allergy (Mild, Verified 06/28/23 09:37) Nausea Medications buspirone 5 mg tablet 5 mg PO BID PRN anxiety #60 tabs 11/22/22 [Rx Confirmed 06/28/23] escitalopram oxalate 20 mg tablet 20 mg PO DAILY #90 tabs 12/25/22 [Rx Confirmed 06/28/23] topiramate 25 mg tablet (Topamax) 25 mg PO BID #180 tabs 12/25/22 [Rx Confirmed 06/28/23] estradiol 2 mg tablet 2 mg PO DAILY #90 tabs 12/29/22 [Rx Confirmed 06/28/23] meloxicam 15 mg tablet See Rx Instructions .Route .COMPLEX #30 tabs 03/19/23 [Rx Confirmed 06/28/23] indomethacin 25 mg capsule 25 mg PO ONCE PRN headache #90 caps 04/27/23 [Rx Confirmed 06/28/23] trazodone 50 mg tablet 50 mg PO QHS PRN insomnia #60 tabs 06/22/23 [Rx Confirmed 06/28/23] PFSH Medical History Adhesive capsulitis of right shoulder Anemia Anxiety Anxiety and depression Breast cyst Cardiology follow-up encounter Cervical radiculopathy Depression Difficulty swallowing Dysphagia Elevated liver enzymes Fatty liver Fatty liver disease, nonalcoholic Frequent headaches Gastric reflux Generalized anxiety disorder with panic attacks H/O emotional problems Headache Health care maintenance Hemicrania continua Hemorrhoids History of skin cancer History of stress test Insomnia Non-smoker Right shoulder pain RUQ pain Subacromial bursitis of right shoulder joint Suicide attempt Surgical History History of hysterectomy History of tonsillectomy Family History Father Skin cancer Social History Smoking Status: Never smoker alcohol intake: never substance use type: does not use what type of physical activity do you participate in: none HPI HPI HPI: 57-year-old female presents due to hemorrhoids interested in having them excised. Patient had a colonoscopy 06/24 along with banding of internal hemorrhoid by Dr. Dietrich. Patient states that she does have residual hemorrhoid tissue as well as swelling at pain at times. Patient has tried suppositories and [id number] medications and still continues to have issues. Patient does occasionally have some bleeding as well. ROS General General: No weight change, appetite, fatigue, colon cancer, breast cancer or weakness HEENT HEENT: No difficulty swallowing, eye injury, eye surgery, swollen glands or hoarseness Endo Endocrine: No thyroid disease, diabetes mellitus, thyroid cancer, Hair loss, heat intolerance or cold intolerance Skin Skin: No rash or changing moles Musc Musculoskeletal: No back problems, arthritis, rheumatoid arthritis, gout or joint pain Cardio Cardiovascular: No murmur, pacemaker, heart disease, atrial fibrillation, high blood pressure, heart attack, heart stent, palpitations, shortness of breat with exertion or chest pain Psych Psychiatric: No depression, anxiety or hearing voices Resp Respiratory: No shortness of breath, No sleep apnea, No cough, No COPD, No asthma, No emphysema and No wheezing Gastro Gastrointestinal: No abdominal pain, No nausea or vomiting, No diarrhea, No constipation, No blood in stool, No acid reflux, Yes hemorrhoids, No ulcers, No gallbladder problem and No black,tarry stools Julio Cesar Hematologic: No blood thinners, No blood disorders, No bleeding, No anemia and No blood clots Neuro Neurologic: No system reviewed and no additional complaints, except as documented, No as per HPI, No abnormal gait, No abnormal hearing, No abnormal movements, No abnormal speech, No behavioral changes, No burning sensations, No confusion, No convulsions, No disequilibrium, No dizziness, No localized weakness, No frequent falls, No headache(s), No lack of coordination, No loss of vision, No memory loss, No numbness, No other visual disturbances, No radicular pain, No restless legs, No sensory deficit, No syncope, No tingling, No tremor(s), No weakness and No other Exam Const General: cooperative, healthy appearing, comfortable and no acute distress [facility] Head: normocephalic and atraumatic Neck Neck: supple Resp Effort & Inspection: normal respiratory effort Cardio Rate: regular rate GI Inspection: non-distended Palpation: soft Other: ERIKA: Inspection patient does have an external/internal hemorrhoid at 6:00 which is a grade 2-3, mild residual tissue at about 11:00, no mass on exam or gross blood. Skin General: no rashes or lesions noted Neuro General: CN's II-XI intact bilaterally Extrem General: normal to inspection Psych Mental Status: mental status grossly normal Attitude: cooperative Assessment and Plan Assessment and Plan (1) Hemorrhoids: Status: Chronic Plan Did discuss with patient that likely she would still have this residual hemorrhoidal tissue even with medication in the area at 6:00 does seem to be a grade 2/3 so likely would not resolve without surgery. Discussed the procedure of a hemorrhoidectomy including but not limited to risk of pain, infection, bleeding, and anesthesia. Patient no further question this time would like to proceed. 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 Brittaney Martinez M.D. Pager: [phone] [facility] [address] [place] [address], [facility], [address] [place] [address] Office: [phone] Coding Level of Care Code Off vis,new,level 3 Diagnoses Hemorrhoids K64.9 06/28/23 1312 <Electronically signed by Brittaney Martinez MD> Date Brittaney Martinez MD
--- NOTE | 2023-07-13 08:51 | EKG12_ITS ---
Test Reason : PREOP Blood Pressure : / mmHG Vent. Rate : 053 BPM Atrial Rate : 053 BPM P-R Int : 194 ms QRS Dur : 088 ms QT Int : 448 ms P-R-T Axes : 075 061 063 degrees QTc Int : 420 ms Sinus bradycardia Otherwise normal ECG When compared with ECG of 11-JUN-2009 11:56, No significant change was found Confirmed by JAIME VILLAGRAN, MARIA ([id number]), editor greeting card [employer] ([id number]) on 07/25/2023 12:58:12 PM Referred By: Brittaney Martinez Confirmed By:MARIA SANDOVAL MD
--- NOTE | 2023-07-13 09:25 | NURSING ---
PT CANCELLED PER ANESTHESIA REQUEST DUE TO BP AND NEEDING TO FOLLOW UP WITH A LEAD QA ANALYST. PT INSTRUCTED TO FOLLOW UP WITH PCP AND SURGEONS OFFICE. IV REMOVED. PT D/C TO HOME.
== END | disposition home or self-care (01) ==
LOC: AC 07:42 → PAT 08-16 08:54
PROVIDERS: PCP Internal Medicine; Referring Provider Surgery; Visit Provider Surgery
DX: Z53.8 Procedure and treatment not carried out for other reasons (principal)
CPT/HCPCS: 93005; J7120; J2405

== ENCOUNTER 2023-07-14 13:55 | Emergency (ER) | payer BC, SELFPAY ==
[2023-07-14 13:55] VITALS: BP 103/64; PULSE 59; RESP 14; TEMP 36.4; O2SAT 100; BMI 17.8
--- NOTE | 2023-07-14 14:27 | RAD_ITS ---
STUDY: X-RAY CHEST REASON FOR EXAM: Female, 57 years old. cp TECHNIQUE: 2 AP portable view of the chest. COMPARISON: None. FINDINGS: The lungs are clear and expanded. There is no demonstrated pleural abnormality. Normal size heart. Normal mediastinum and nivia. Normal visualized pulmonary arteries. Normal visualized aortic arch and descending thoracic aorta. Normal visualized thoracic spine. Normal visualized ribs, clavicles, and shoulders. There is no demonstrated abnormality of the visualized soft tissue structures of the upper abdomen. RAD/Chest 1 View (Portable) IMPRESSION: Normal x-ray examination of the chest. Electronically Signed: Eugene Winter MD at 15:22 [facility] ,
--- NOTE | 2023-07-14 14:27 | EKG12_ITS ---
Test Reason : CP Blood Pressure : / mmHG Vent. Rate : 058 BPM Atrial Rate : 058 BPM P-R Int : 168 ms QRS Dur : 088 ms QT Int : 420 ms P-R-T Axes : 080 068 074 degrees QTc Int : 412 ms Sinus bradycardia with sinus arrhythmia Otherwise normal ECG Confirmed by JAIME VILLAGRAN, MARIA ([id number]), editor managing newspaper [employer] ([id number]) on 07/25/2023 9:55:32 AM Referred By: GEOFF/CAROLINE Confirmed By:MARIA SANDOVAL MD
--- NOTE | 2023-07-14 14:29 | EDS_ITS ---
HPI History of Present Illness Chief Complaint: Chest Pain Informant: patient Onset/Context/Timing Onset: Yesterday Narrative Narrative: Patient presents secondary to chest heaviness and palpitations. Patient bill fontaine was here yesterday for a planned hemorrhoidectomy. While in the preop area one of the anesthesiologist was uncomfortable with surgery given that the patient had low blood pressure and a headache. While they were giving her IV fluids she states she developed a weird sensation in her chest and a slight heaviness. Patient surgery was canceled but patient states she continues to have some chest heaviness with intermittent palpitations. She does report a history of a mitral valve problem. She states one of the leaflets would overextend on every other beat. She has not followed up and had repeat echocardiograms to monitor this. [facility] Medical History Adhesive capsulitis of right shoulder Anemia Anxiety Anxiety and depression Breast cyst Cardiology follow-up encounter Cervical radiculopathy Depression Difficulty swallowing Dysphagia Elevated liver enzymes Fatty liver Fatty liver disease, nonalcoholic Frequent headaches Gastric reflux Generalized anxiety disorder with panic attacks H/O emotional problems Headache Health care maintenance Hemicrania continua Hemorrhoids History of skin cancer History of stress test Insomnia Non-smoker Right shoulder pain RUQ pain Subacromial bursitis of right shoulder joint Suicide attempt Home Medications buspirone 5 mg tablet 5 mg PO BID PRN anxiety #60 tabs 11/22/22 [Rx Last Taken Unknown] escitalopram oxalate 20 mg tablet 20 mg PO DAILY #90 tabs 12/25/22 [Rx Last Taken Unknown] estradiol 2 mg tablet 2 mg PO DAILY #90 tabs 12/29/22 [Rx Last Taken Unknown] meloxicam 15 mg tablet See Rx Instructions .Route .COMPLEX #30 tabs 03/19/23 [Rx Last Taken Unknown] indomethacin 25 mg capsule 25 mg PO ONCE PRN headache #90 caps 04/27/23 [Rx Last Taken Unknown] trazodone 50 mg tablet 50 mg PO QHS PRN insomnia #60 tabs 06/22/23 [Rx Last Taken Unknown] topiramate 25 mg tablet (Topamax) 25 mg PO BID #180 tabs 07/13/23 [Rx Last Taken Unknown] Allergy/AdvReac Type Severity Reaction Status Date / Time iodine Allergy Intermediate Hives Verified 07/14/23 13:55 promethazine [From Phenergan] Allergy Mild Nausea Verified 07/14/23 13:55 Family History Father Skin cancer Surgical History History of hysterectomy History of tonsillectomy Social History Smoking Status: Never smoker alcohol intake: never substance use type: does not use what type of physical activity do you participate in: none ROS ROS ED Constitutional Constitutional ED: Denies chills or fever(s) Eyes Eyes: Denies discharge from eye(s) ENT ENT ED: Denies discharge from eye(s), rhinorrhea or sore throat Cardiovascular Cardiovascular: Reports chest pain and palpitations Respiratory/Chest Respiratory/Chest: Reports dyspnea; Denies cough Gastrointestinal Gastrointestinal: Denies abdominal pain, nausea or vomiting Genitourinary Genitourinary ED: Denies dysuria Musculoskeletal Musculoskeletal: Denies back pain or extremity pain Integumentary Denies Abrasions or rash Neurologic Neurologic: Reports headache(s) and weakness Psychiatric Psychiatric: Denies anxiety or depression Allergic/Immunologic Allergic/Immunologic ED: Denies lip swelling or urticaria EXAM Physical Exam Const Vital Signs: 07/14/23 13:55 07/14/23 14:00 07/14/23 15:05 Temperature 97.6 F L Temperature Source Temporal Pulse Rate 59 L 54 L Respiratory Rate 14 Respiratory Effort Normal Blood Pressure 103/64 95/60 Blood Pressure Mean 77 71 Pulse Ox 100 Oxygen Delivery Method Room Air Oxygen Flow Rate (L/min) 07/14/23 15:40 07/14/23 16:00 Temperature Temperature Source Pulse Rate 58 L 67 Respiratory Rate 16 16 Respiratory Effort Blood Pressure 103/52 L 95/67 Blood Pressure Mean 69 76 Pulse Ox 98 Oxygen Delivery Method Room Air Room Air Oxygen Flow Rate (L/min) 98 Positive well nourished and well developed General Appearance ED: well developed HEENT Reports normocephalic and head/scalp atraumatic Eyes PERRL and EOMs intact bilaterally Neck supple Chest Wall inspection of chest normal and palpation of chest normal Resp normal respiratory effort and clear to auscultation bilaterally Cardio regular rate and regular rhythm GI soft to palpation and non-tender Palpation: soft Extremity normal to inspection Neuro oriented x3 Neuro Narrative: No focal neurologic deficits. Sensorium / Orientation: alert Psych mental status grossly normal Skin no rashes or lesions noted MDM MDM MDM Narrative Medical decision making narrative: Patient placed on hotel housekeeper. During my initial interview and evaluation I saw 2 single PACs on the monitor. IV line is established. Labwork obtained to evaluate for leukocytosis, anemia, and electrolyte derangement. EKG obtained to evaluate for cardiac arrhythmia/ischemia. Chest x-ray obtained to evaluate for acute lung pathology, cardiac size, or mediastinal abnormality. History & Record Review Discussion w/independent historian: Patient Additional record(s) reviewed:: Prior outpatient record and Prior labs Lab Data Attestation: I reviewed the patient's lab results. Labs: Laboratory Results - last 24 hr 07/14/23 14:00 WBC 6.6 RBC 4.00 L Hgb 12.8 Hct 39.8 MCV 99.5 H MCH 32.0 MCHC 32.2 RDW Std Deviation 44.7 H RDW Coeff of Colten 12.2 Plt Count 188 MPV 10.5 Immature Gran % (Auto) 0.500 Neut % (Auto) 65.4 Lymph % (Auto) 26.1 [place] % (Auto) 6.7 Eos % (Auto) 0.8 Baso % (Auto) 0.5 Absolute Neuts (auto) 4.3 Absolute Lymphs (auto) 1.72 Nucleated RBC % 0 D-Dimer Quant (PE/DVT) 0.62 H* Sodium 141 Potassium 3.9 Chloride 110 H Carbon Dioxide 29.0 Anion Gap 2 L BUN 34 H Creatinine 0.77 Estim Creat Clear Calc 68.52 Est GFR (MDRD) Af Amer 99 Est GFR (MDRD) Non-Af 82 BUN/Creatinine Ratio 44.0 H Glucose 115 H Calcium 9.0 Troponin I High Sens 5 TSH 0.83 Radiography Chest X-Ray - ED: 1 View, Read by ED Physician, Normal, Heart, Lungs and Mediastinum Diagnostic Testing: Clinical Impression(s) from Imaging Studies Chest X-Ray 07/14/23 14:27 IMPRESSION: Normal x-ray examination of the chest. Electronically Signed: Eugene Winter MD at 15:22 EST Reading Location ID and State: [facility] / [place] , Service support , Chest CTA 07/14/23 15:34 IMPRESSION: Minor atelectasis within the dependent portion of the lungs. No focal infiltration or gross pulmonary edema. No evidence for pulmonary embolus. Electronically Signed: Antonino France MD at 17:27 EST Reading Location ID and State: [facility] / [place] Tel , Service support , EKG Initial EKG: Attestation: I personally reviewed and interpreted this EKG as follows: Interpretation: Sinus Bradycardia (Sinus bradycardia 58 bpm. No acute ischemia.) Treatment and Re-Evaluation :: CBC was normal white count 6.6 with a hemoglobin of 12.8. Chemistry studies unremarkable. Troponin is normal at 5 and TSH is normal at 0.83. D-dimer is slightly elevated at 0.62. Portable chest x-ray per my interpretation reveals no acute findings. No infiltrate. Radiology interpretation reviewed and agrees. EKG is sinus bradycardia with no acute ischemia. Patient was sent for CTA of her chest. This reveals no acute findings and no evidence of PE. At this time patient's blood pressure remains in the 90s systolic. She is not on any medications that I can see that would affect her heart rate. She will increase fluids over the weekend and follow-up with her doctor on Sunday. Return instructions given. Discharge Plan Triage Chief Complaint: Chest Pain ED Provider: Kelly Wiggins Dx/Rx/DC Orders Clinical Impression: Chest pain Instructions: ED Chest Pain, Uncertain Cause Prescriptions: No Action escitalopram oxalate 20 mg tablet 20 mg PO DAILY Qty: 90 3RF buspirone 5 mg tablet 5 mg PO BID PRN (Reason: anxiety) Qty: 60 3RF trazodone 50 mg tablet 50 mg PO QHS PRN (Reason: insomnia) Qty: 60 2RF estradiol 2 mg tablet 2 mg PO DAILY Qty: 90 3RF meloxicam 15 mg tablet See Rx Instructions .ROUTE .COMPLEX Qty: 30 1RF Dose Instruction: TAKE 1 TABLET BY MOUTH ONCE DAILY. DO NOT TAKE IN CONJUNCTION WITH OTHER NSAIDS INCLUDING INDOMETHACIN Rx Instructions: TAKE 1 TABLET BY MOUTH ONCE DAILY. DO NOT TAKE IN CONJUNCTION WITH OTHER NSAIDS INCLUDING INDOMETHACIN indomethacin 25 mg capsule 25 mg PO ONCE PRN (Reason: headache) Qty: 90 0RF Rx Instructions: administer with food or milk topiramate [Topamax] 25 mg tablet 25 mg PO BID Qty: 180 1RF Primary Care Provider: Hanna Nuñez Referrals: Hanna Nuñez MD [Primary Care Provider] - 3-5 Days Disposition Disposition: Home, Self Care
[2023-07-14 14:37] LABS: Absolute Lymphocyte Count 1.72 X10^3/uL (0.83-4.51); Absolute Neutrophil Count 4.3 X10^3/uL (2.0-7.7); Basophil# 0.03 X10^3/uL; Basophil% 0.5 % (0-1); Eosinophil# 0.05 X10^3/uL; Eosinophils% 0.8 % (0-5); Hematocrit 39.8 % (37-47); Hemoglobin 12.8 g/dL (12.0-15.0); Lymphocyte # 1.72 X10^3/ul (0.83-4.51); Lymphocyte % 26.1 % (19-41); Mean Corp Hgb Conc 32.2 g/dL (32-36); Mean Corpuscular Volume 99.5 fL (81-99); Mean Platelet Vol. 10.5 fl (6.2-12.0); Monocyte# 0.44 X10^3/uL; Monocyte% 6.7 % (0-10); NRBC Flagged by Analyzer 0 % (0-5); Neutrophil # 4.31 X10^3/uL (2.7-7.7); Neutrophil % 65.4 % (47-70); Platelet Count 188 K/mm3 (150-450); RBC Distribution Width CV 12.2 % (11.6-14.6); RBC Distribution Width SD 44.7 fl (35.1-43.9); White Blood Count 6.6 K/mm3 (4.4-11.0)
[2023-07-14 15:02] LABS: D-Dimer Quantitative (DVT/PE) 0.62 FEU/ug/m (0.27-0.49)
[2023-07-14 15:05] VITALS: BP 95/60; PULSE 54
[2023-07-14 15:16] LABS: Anion Gap 2 (5-15); BUN 34 mg/dL (7-18); Chloride 110 mmol/L (98-107); Creatinine, Serum 0.77 mg/dL (0.55-1.02); EST Glomerular Filtration Rate 82 mL/min (>60); Est Glom Filt Rate - Afr Amer 99 mL/min (>60); Estimated Creatinine Clearance 68.52 ml/min; Glucose 115 mg/dL (74-106); Potassium 3.9 mmol/L (3.5-5.1); Sodium Level 141 mmol/L (136-145); Thyroid Stim Hormone (TSH) 0.83 uIU/mL (0.358-3.74); Troponin-I HS 5 pg/mL (3.0-54.0)
--- NOTE | 2023-07-14 15:34 | CT_ITS ---
STUDY: CTA CHEST REASON FOR EXAM: Female, 57 years old. CP, elevated d-dimer RADIATION DOSAGE (If Supplied By Facility): CTDIvol = ( 5.99 ) mGy, DLP = ( 154.13 ) mGycm TECHNIQUE: The examination was performed with the intravenous administration of IV 100mL Isovue-370. Post-processing of the angiographic images was performed, with multiplanar reformation and 3D reconstruction. Individualized dose optimization techniques were used for this CT. COMPARISON: None. FINDINGS: Normal enhancement of the main pulmonary artery and right and left pulmonary arteries. Normal enhancement of the bilateral peripheral pulmonary arteries. There is no demonstrated pulmonary embolism. Normal thoracic aorta and visualized great vessels. There is no demonstrated aortic dissection. Normal heart and pericardium. Normal mediastinum. Normal hilar regions. Normal visualized trachea and bronchi. The lungs are well expanded. Minor atelectasis within the dependent portion lungs. No focal infiltration or pulmonary nodules Normal pleura. Normal chest wall structures. Normal osseous structures. Normal visualized upper abdomen. CT/CTA Chest W/WO Contrast IMPRESSION: Minor atelectasis within the dependent portion of the lungs. No focal infiltration or gross pulmonary edema. No evidence for pulmonary embolus. Electronically Signed: Antonino France MD at 17:27 EST ,
[2023-07-14 15:40] VITALS: BP 103/52; PULSE 58; RESP 16; O2SAT 98
[2023-07-14 16:00] VITALS: BP 95/67; PULSE 67; RESP 16
[2023-07-14] MEDS: Contrast Allergy Safety Check IV (16:09)
[2023-07-14 18:00] VITALS: BP 134/78; PULSE 64; RESP 14; TEMP 36.4; O2SAT 99
== END 2023-07-14 18:26 | disposition home or self-care (01) ==
PROVIDERS: Emergency Provider Emergency Medicine; PCP Internal Medicine; Visit Provider Emergency Medicine
DX: R07.9 Chest pain, unspecified (principal); R00.2 Palpitations; R06.00 Dyspnea, unspecified; R79.89 Other specified abnormal findings of blood chemistry; Z79.899 Other long term (current) drug therapy
CPT/HCPCS: 71045; 71275; 80048; 84443; 84484; 85025; 85379; 93005; 99284; Q9967

== ENCOUNTER → 2023-07-20 | Outpatient (CLI) | payer BC, SELFPAY ==
--- NOTE | 2023-07-20 10:57 | BI_ITS ---
MAMMOGRAPHY - BILATERAL SCREENING REASON FOR EXAM: Female, 57 years old. Routine annual screening examination. PERTINENT HISTORY: Non-contributory. TECHNIQUE: Digital bilateral breast karen (3D mammographic acquisition) in the CC and MLO projections. 2-D mediolateral oblique (MLO) and craniocaudad (CC) views of both breasts were obtained. CAD: Full Field Digital Mammography with Computer Added Detection was performed. COMPARISON: Comparison is made with prior outside examination dated September 16, 2019. FINDINGS: Breast Composition: The breasts are extremely dense, which lowers the sensitivity of mammography. There are no dominant masses or suspicious calcifications. 2 tissue markers are seen in the deep upper lateral aspect of the right breast. No other significant abnormalities are identified. There has been no significant change since the prior study. BI/SCRN MAMM (CAD)W/KAREN BILAT IMPRESSION: Stable bilateral screening mammogram. Yearly follow-up mammogram recommended. (A) ASSESSMENT CATEGORY: BIRADS Category 2: Benign. A letter regarding these results will be sent to the patient by the facility within 30 days. Approximately 10% of breast cancers are not detected by mammography. A normal mammogram should not delay biopsy of a clinically suspicious abnormality. [id number] Electronically Signed: Constantino Rosa MD at 14:01 EST ,
== END | disposition home or self-care (01) ==
LOC: OPBI 10:56
PROVIDERS: PCP Internal Medicine; Referring Provider Internal Medicine; Visit Provider Internal Medicine
DX: Z12.31 Encounter for screening mammogram for malignant neoplasm of breast (principal)
CPT/HCPCS: 77063; 77067

== ENCOUNTER 2023-10-19 10:46 | Day surgery (SDC) | payer BC, SELFPAY ==
[2023-10-19] VITALS (7 sets, daily range): BP systolic 93–114; BP diastolic 44–68; PULSE 62–85; RESP 16; TEMP 36.6–37.4; O2SAT 92–100; BMI 18.3
--- NOTE | 2023-10-19 | HEM_PTH ---
PATHOLOGY RESULTS PATIENT: TREY DOUGHERTY [place] [facility] [id number] AGE/SX: 58/F ROOM: RE10/19/[address]: Dr. Brittaney Martinez MD : 1965 BED: DIS: 10/19/2023 SPEC #: [id number] RECD: 10/21/23 18:03 STATUS: ELIAS REFredy #: [id number] NATALIA: 10/19/23 00:[address]: Brittaney Martinez DEPT: SURGICAL PATHOLOGY RECD BY: Teodoro Herman ENTERED: 10/22/23 08:05 SP TYPE: HEMORRHOID OTHR DR: Dr. Hanna Nuñez MD Tissues: HEMORRHOIDS Procedures: Surgery Specimen Level III HEADER OPERATION: Hemorrhoidectomy PRE-OP DIAGNOSIS: Hemorrhoids TISSUE SUBMITTED: Hemorrhoid tissue MICROSCOPIC DIAGNOSIS Hemorrhoid, hemorrhoidectomy: Pieces of anorectal mucosa with dilated and congested blood vessels, consistent with hemorrhoids. SJ:bryant 11/01/2023 MICROSCOPIC DESCRIPTION Slides are reviewed. GROSS DESCRIPTION Received in fixative is one container labeled with the patient's name and designated hemorrhoid tissue. The specimen consists of two pieces of espinal mucosal tissue measuring 3.0 x 2.5 x 0.6 cm and 1.0 x 0.7 x 0.5 cm. Brick [employer] sections are submitted in one cassette. / EMILY:bryant 10/22/2023 TC:5 CPT: 93411
--- OUTSIDE RECORDS SUMMARY | 2023-10-19 11:08 | XMS RPT_ITS | CCD ---
Author Name Unknown Address [address] [place] [address] Organization [facility] Care Team Providers Care Strap Sewer Name Role Phone Unavailable Primary Care Provider ALECIA Renteria Attending Unavailable Allergies Allergy Classification Reported Allergen(s) Allergy Type Date of Onset Reaction(s) Facility (2 sources) Antihistamines; Translations: [ANTIHISTAMINES] Propensity to adverse reactions 11-19-2002 Itching [facility] Work Phone: (2 sources) Phenothiazine; Translations: [PHENOTHIAZINES] Propensity to adverse reactions 11-19-2002 Itching [facility] Work Phone: Medications Completed/Discontinued Medications Medication Drug Class(es) Dates Sig (Normalized) Sig (Original) escitalopram 20 mg oral tablet (1 source) Serotonin Reuptake Inhibitor Start: 10-17-2022 escitalopram oxalate (LEXAPRO) 20 mg tablet estradiol 1 mg oral tablet (1 source) Estrogen Start: 07-28-2013 take 1 tablet by mouth once daily estradiol 1 mg tablet Take 1 tablet by mouth once daily. 90 tablet 3 07/28/2013 Active Problems Active Problems Problem Classification Problem Date Documented Date Episodic/Chronic Administrative/social admission (1 source) General problem AND/OR complaint; Translations: [Person with feared health complaint in whom no diagnosis is made] 06-27-2023 Episodic Endometriosis (1 source) Endometriosis (clinical); Translations: [Endometrioma] Onset: 06-18-2009 06-18-2009 Chronic Nonmalignant breast conditions (1 source) Fibrocystic disease of breast; Translations: [Diffuse cystic mastopathy of unspecified breast] Onset: 04-30-2009 04-30-2009 Chronic Other female genital disorders (1 source) Vaginal odor; Translations: [Other specified noninflammatory disorders of vagina] 06-27-2023 Episodic Past or Other Problems Problem Classification Problem Date Documented Da te Episodic/Chronic Abdominal pain (1 source) Right lower quadrant pain; Translations: [Right lower quadrant pain] Onset: 04-20-2009 04-20-2009 Episodic Conditions associated with dizziness or vertigo (1 source) Dizziness and giddiness; Translations: [Dizziness and giddiness] Onset: 10-23-2005 10-23-2005 Episodic Headache; including migraine (1 source) Headache; Translations: [Headache] Onset: 10-20-2004 10-20-2004 Episodic Nonmalignant breast conditions (1 source) Solitary cyst of breast; Translations: [Solitary cyst of unspecified breast] Onset: 04-30-2009 04-30-2009 Episodic Other non-epithelial cancer of skin (1 source) Malignant neoplasm of skin of trunk ; Translations: [Other and unspecified malignant neoplasm of skin of trunk, except scrotum] Onset: 03-15-2006 03-15-2006 Episodic Other non-traumatic joint disorders (1 source) Pain in right knee; Translations: [Pain in joint, lower leg] Onset: 04-22-2012 04-22-2012 Episodic Ovarian cyst (1 source) Cyst of ovary; Translations: [Unspecified ovarian cyst, unspecified side] Onset: 04-20-2009 04-20-2009 Episodic Residual codes; unclassified (1 source) Family history of breast cancer; Translations: [Family history of malignant neoplasm of breast] Onset: 04-30-2009 04-30-2009 Episodic Results Test Name Value Interpretation Reference Range Facil ity Vital Signs Date Time Vital Sign Value Performing Clinician Lisandro ramirez 06-27-2023 09:53-0400 Body weight 54.98 kg Alecia Worthy APRN.CNM Work Phone: [facility] 06-27-2023 09:53-0400 Diastolic blood pressure 70 mm[Hg] Alecia Worthy APRN.CNM Work Phone: [facility] 06-27-2023 09:53-0400 Systolic blood pressure 110 mm[Hg] Alecia Worthy APRN.CNM Work Phone: [facility] Encounters Encounter Date Encounter Type Care Provider Facility Start: 06-27-2023 End: 06-27-2023 ambulatory ALECIA WORTHY Facility:[facility] Start: 06-27-2023 End: 06-27-2023 Patient encounter procedure Alecia Paytonclarence [employer]ATER[employer]SIM Work Phone: OB/Gynecology Procedures Date Procedure Procedure Detail Performing Clinician Start: 12-27-2011 Lipid 1996 panel - S emerita or Plasma Alecia Worthy [employer]LUH Work Phone: Plan of Treatment Date Care Activity Detail Author Start: 05-04-2023 Covid-19 Vaccine () Covid-19 Vaccine () [facility] Start: 09-03-2022 Depression Assessment Depression Assessment [facility] Start: 12-26-2016 Lipid 1996 panel - Serum or Plasma Lipid Screening [facility] Start: 12-26-2016 Pap Testing Pap Testing [facility] Start: 2016 Shingrix Vaccine (1 of 2) Shingrix Vaccine (1 of 2) [facility] Start: 10-18-2014 Diabetes Screening Diabetes Screening [facility] Start: 08-09-2013 Mammography Mammogram Screening [facility] Start: 2011 Cologuard (FIT-DNA) Cologuard (FIT-DNA) [facility] Start: 2011 Colonoscopy Colonoscopy [facility] Start: 2011 Colorectal Cancer Screening Colorectal Cancer Screening [facility] Start: [address] Colonography [facility] Start: 2011 Fecal Occult Blood Fecal Occult Blood [facility] Start: 2011 Sigmoidoscopy Sigmoidoscopy [facility] Start: 03-21-2011 HPV Testing HPV Testing [facility] Start: 04-08-2007 Hepatitis B Vaccine (2 of 3 - 19+ 3-dose series) Hepatitis B Vaccine (2 of 3 - 19+ 3-dose series) [facility] Start: 1985 Urine microalbumin profile DTaP,Tdap,Td Vaccine (1 - Tdap) [facility] Start: 1984 Hepatitis C Screening Hepatitis C Screening [facility] BACTERIAL VAGINOSIS NAAT BACTERI AL VAGINOSIS NAAT Lab Routine Vaginal odor 06/27/2023 10:29 AM EDT [facility] Work Phone: GUNNER/TRICHOMONAS NAAT GUNNER /TRICHOMONAS NAAT Lab Routine Vaginal odor 06/27/2023 10:29 AM EDT [facility] Work Phone: Chlamydia trachomatis+Neisseria gonorrhoeae DNA [Presence] in Unspecified specimen by JESI with probe detection GONORRHEA/CHLAMYDIA NAAT Lab Routine Vaginal odor Concern about STD in female without diagnosis 06/27/2023 10:29 AM EDT [facility] Work Phone: Immunizations Immunization Date Immunization Notes Care Provider Carolyn sy 03-11-2007 hepatitis B vaccine, adult dosage Alecia Worthy APRN.CNM Work Phone: [facility] Work Phone: Payers Date Payer Category Payer Unknown [employer] P[employer] [id number] 2022-Present [phone] [address] [place] [address] PPO [id number] 2022 Unknown [id number] Social History Date Type Detail Facility Start: 12-27-2011 Tobacco smoking stat [facility] Never smoked tobacco [facility] Work Phone: Start: 12-27-2011 Tobacco use and exposure Smokeless tobacco non-user [facility] Work Phone: Start: 06-27-2023 Alcohol intake 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 Author Type: Magazine Filler Type: Progress Notes Filed: 06/27/2023 10:31 AM Note Text: Line Maintenance offered: Patient declines. Custom Applicator Visit 06/27/2023 10:25 AM CC: STD screening HPI: Jaylin West is a 57 year old woman here for STD screening. Reports she is recently from of 35 years and has new partner. [place] a lump inside vagina and thinks it may be wart. No history of STD's or HPV diagnosis. Total hysterectomy over 20 years ago. Any known exposure? Unsure- new partner Vaginal discharge? Yes: Contraception: hysterectomy ROS: Denies fevers, pelvic pain, abnormal vaginal bleeding. Feels bump on inside of vagina . O: BP 110/70 Wt 121 lb 3.2 oz (55 kg) LMP 07/05/2006 Gen: NAD SSE: vagina with small amount of white discharge. Skin tag noted to patient's right lower side towards introits. No lesions / warts visualized. A/P: 57 year old woman requesting STD screening. Increased risk for STDs - GC/Chlamydia and Trich - will notify patient of abnormal results. - discussed condom use for STD prevention. - Reviewed vulvar hygiene and no douching Alecia Worthy APRN.CNM [facility] History of Present illness Narrative 06-27-2023 Alecia Worthy APRN.LUH - 06/27/2023 9:50 AM EDT Note Date & Type Note Facility 06-27-2023 History of Presen t illness Narrative Line Maintenance offered: Patient declines. Custom Applicator Visit 06/27/2023 10:25 AM CC: STD screening HPI: Jaylin West is a 57 year old woman here for STD screening. Reports she is recently from of 35 years and has new partner. [place] a lump inside vagina and thinks it may be wart. No history of STD's or HPV diagnosis. Total hysterectomy over 20 years ago. Any known exposure? Unsure- new partner Vaginal discharge? Yes: Contraception: hysterectomy ROS: Denies fevers, pelvic pain, abnormal vaginal bleeding. Feels bump on inside of vagina . O: BP 110/70 Wt 121 lb 3.2 oz (55 kg) LMP 07/05/2006 Gen: NAD SSE: vagina with small amount of white discharge. Skin tag noted to patient's right lower side towards introits. No lesions / warts visualized. A/P: 57 year old woman requesting STD screening. Increased risk for STDs - GC/Chlamydia and Trich - will notify patient of abnormal results. - discussed condom use for STD prevention. - Reviewed vulvar hygiene and no douching Alecia Worthy APRN.CNM documented in this encounter [facility] History of Past illness Narrative 05-29-2006 Note Date & Type Note Facility documented as of this encounter (statuses as of 06/27/2023) [facility] Evaluation note Note Date & Type Note Facility documented in this encounter [facility] Summary Purpose Family History No Family History Records Found Advance Directives No Advanced Directives Records Found Additional Source Comments Source Comments (unrecognize d section and content) In the event this informatio n is protected by the Federal Confidentiality of Alcohol and Drug Abuse Patient Records regulations: The Federal rules restrict any use of the information to criminally investigate or prosecute any alcohol or drug abuse patient.[facility] Reason for Visit (unrecogniz ed section and content) INFORMATION SOURCE (unrecogn ized section and content) FOR RECORDS PERTAINING TO PATIENTS WHO ARE OR HAVE BEEN ENROLLED IN A CHEMICAL DEPENDENCY/SUBSTANCEABUSE PROGRAM, SOME INFORMATION MAY BE OMITTED. This clinical summary was aggregated from multiple sources. Caution should be exercised in using it in the provision of clinical care. This summary normalizes information from multiple sources, and as a consequence, information in this document may materially change the coding, format and clinical context of patient data. In addition, data may be omitted in some cases. CLINICAL DECISIONS SHOULD BE BASED ON THE PRIMARY CLINICAL RECORDS. [employer] provides no warranty or guarantee of the accuracy or completeness of information in this document.
[2023-10-19] MEDS: Lactated Ringers 1,000 ML 15 ML IV (11:14)
--- NOTE | 2023-10-19 12:05 | PCM.HP.BLA ---
History and Physical Date of Admission: 10/19/23 Date of Service: 09/21/23 MR#: [id number] Acct: [id number] Name: TREY DOUGHERTY Rep #: [id number] : 1965 Provider: Dr. 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 Is patient in pain?: No Allergies iodine Allergy (Intermediate, Verified 09/21/23 13:32) Hivespromethazine [From Phenergan] Allergy (Mild, Verified 09/21/23 13:32) Nausea Medications buspirone 5 mg tablet 5 mg PO BID PRN anxiety #60 tabs 11/22/22 [Rx Confirmed 09/21/23] escitalopram oxalate 20 mg tablet 20 mg PO DAILY #90 tabs 12/25/22 [Rx Confirmed 09/21/23] indomethacin 25 mg capsule 25 mg PO ONCE PRN headache #90 caps 04/27/23 [Rx Confirmed 09/21/23] trazodone 50 mg tablet 50 mg PO QHS PRN insomnia #60 tabs 06/22/23 [Rx Confirmed 09/21/23] topiramate 25 mg tablet (Topamax) 25 mg PO BID #180 tabs 07/13/23 [Rx Confirmed 09/21/23] meloxicam 15 mg tablet 15 mg PO DAILY PRN 08/15/23 [History Confirmed 09/21/23] estradiol 2 mg tablet 2 mg PO DAILY #90 tabs 09/04/23 [Rx Confirmed 09/21/23] PFSH Medical History Adhesive capsulitis of right shoulder Anemia Anxiety Anxiety and depression Breast cyst Cardiology follow-up encounter Cervical radiculopathy Chest pain Depression Difficulty swallowing Dysphagia Elevated ferritin Elevated liver enzymes Fatty liver Fatty liver disease, nonalcoholic Frequent headaches Gastric reflux Generalized anxiety disorder with panic attacks H/O emotional problems Headache Health care maintenance Hemicrania continua Hemorrhoids History of skin cancer History of stress test Insomnia Non-smoker Pain Right shoulder pain RUQ pain Subacromial bursitis of right shoulder joint Suicide attempt Surgical History History of hysterectomy History of tonsillectomy Family History Father Skin cancer Social History Smoking Status: Never smoker alcohol intake: never substance use type: does not use caffeine: Yes (3 x/ wk) Type: tea what type of physical activity do you participate in: none HPI HPI HPI: 57-year-old female presents for an updated H&P for hemorrhoidectomy as the first scheduled appointment was canceled due to chest pain for patient to see cardiology. Patient states no changes to her hemorrhoids does still have occasional bleeding. Patient just got over COVID the beginning of September. Patient did see cardiology and they had no concerns about anesthesia. ROS General General: No weight change, appetite, fatigue, colon cancer, breast cancer or weakness HEENT HEENT: No difficulty swallowing, eye injury, eye surgery, swollen glands or hoarseness Endo Endocrine: No thyroid disease, diabetes mellitus, thyroid cancer, Hair loss, heat intolerance or cold intolerance Skin Skin: No rash or changing moles Musc Musculoskeletal: No back problems, arthritis, rheumatoid arthritis, gout or joint pain Cardio Cardiovascular: No murmur, pacemaker, heart disease, atrial fibrillation, high blood pressure, heart attack, heart stent, palpitations, shortness of breat with exertion or chest pain Psych Psychiatric: No depression, anxiety or hearing voices Resp Respiratory: No shortness of breath, No sleep apnea, No cough, No COPD, No asthma, No emphysema and No wheezing Gastro Gastrointestinal: No abdominal pain, No nausea or vomiting, No diarrhea, No constipation, No blood in stool, No acid reflux, Yes hemorrhoids, No ulcers, No gallbladder problem and No black,tarry stools Julio Cesar Hematologic: No blood thinners, No blood disorders, No bleeding, No anemia and No blood clots Neuro Neurologic: No system reviewed and no additional complaints, except as documented, No as per HPI, No abnormal gait, No abnormal hearing, No abnormal movements, No abnormal speech, No behavioral changes, No burning sensations, No confusion, No convulsions, No disequilibrium, No dizziness, No localized weakness, No frequent falls, No headache(s), No lack of coordination, No loss of vision, No memory loss, No numbness, No other visual disturbances, No radicular pain, No restless legs, No sensory deficit, No syncope, No tingling, No tremor(s), No weakness and No other Exam Const General: cooperative, healthy appearing, comfortable and no acute distress HENMT Head: normocephalic and atraumatic Neck Neck: supple Resp Effort & Inspection: normal respiratory effort Cardio Rate: regular rate GI Inspection: non-distended Palpation: soft and nontender Rectal Exam: deferred Skin General: no rashes or lesions noted Neuro General: CN's II-XI intact bilaterally Extrem General: normal to inspection Psych Mental Status: mental status grossly normal Attitude: cooperative Assessment and Plan Assessment and Plan (1) Hemorrhoids: Status: Chronic Plan Did discuss with patient that likely she would still have this residual hemorrhoidal tissue even with medication in the area at 6:00 does seem to be a grade 2/3 so likely would not resolve without surgery. Discussed the procedure of a hemorrhoidectomy including but not limited to risk of pain, infection, bleeding, and anesthesia. Patient no further question this time would like to proceed. Brittaney Martinez M.D. Pager: [phone] [facility] [address] [place] [address], [address] [place] [address] Office: [phone] Coding Level of Care Code Off vis,est,level 3 Diagnoses Hemorrhoids K64.9 09/25/23 1143 <Electronically signed by Brittaney Martinez MD> Date Brittaney Martinez MD
[2023-10-19] MEDS: Lubricating Jelly 60 GM Tube 30 GM (12:42)
[2023-10-19] MEDS: BUPIVACAINE LIPOSOME/PF 20 ML VIAL OPERA.SITE (13:09)
[2023-10-19] MEDS: Dibucaine 30 GM Tube 1 APPLIC (13:10)
--- NOTE | 2023-10-19 13:13 | PCM.OPRPT ---
Report of Operation Date of Procedure: 10/19/23 Pre-Operative Diagnosis: Internal/external hemorrhoids Post-Operative Diagnosis: Same Surgery/Procedure Performed:: Hemorrhoidectomy and excision of residual hemorrhoidal tissue Surgeon: Brittaney Martinez Type of Anesthesia: General/Supplemental Anesthesiologist: Marcos Prather Specimen's removed: Hemorrhoidal tissue Estimated Blood Loss (mL): 10 cc Description of Procedure: The patient was brought into the operating room and general anesthesia was induced. She was placed in prone jackknife lithotomy position. A timeout was completed verifying correct patient, procedure, site, position, and special equipment prior to beginning the procedure. The buttocks were taped apart. Perineum was prepared prepped and draped in standard sterile fashion. Local anesthesia was injected as a perianal nerve block-Exparel, this was also infiltrated around the anus. Anus carefully dilated. Small David-Ruiz retractor was introduced and 3 marginal pedicles identified. She was noted to have internal and external hemorrhoids at the right posterior location. The pedicle was excised. 2-0 vicryl suture was placed at the base of pedicle and retracted externally to exteriorize the hemorrhoidal pedicle. An elliptical incision was made extending from perianal skin to anal rectal ring including both internal and external hemorrhoids and excising a minimal amount of anoderm. Cautery was used to separate the hemorrhoid from the underlying tissue. Careful not to involve any of the sphincter muscle. The pedicle was indicated from the base and sent to pathology. Hemostasis was achieved using electrocautery. Following the hemostasis the skin and mucosal incisions were closed with the running lock stitch of 2-0 chromic. Small about of residual hemorrhoidal tissue was excised as well at 11:00, electrocautery was used for hemostasis?interrupted 2-0 chromic suture was placed. Surgifoam with dibucaine was placed in the anus. An ABD pad tucked between the gluteal folds. The patient tolerated procedure well and was extubated and taken to the postanesthesia care unit in stable condition. Complications none
--- NOTE | 2023-10-19 13:19 | DCINST_ITS ---
Discharge Instructions Diet Discharge Diet: No restrictions Activity Lifting Restrictions: No lifting greater than 20 pounds for 2 weeks-strenuous exercise Additional Activity Instructions:: Recommend daily sitz bath's, apply Dibucaine ointment as needed Dressing / Incision Call your doctor if your incision/area has: Sudden Increased Bleeding, Increased Pain/ Swelling and Foul Smelling Discharge Call your doctor if you observe: Fever of 101 or Higher Follow Up Care Please Follow Up With: Brittaney Martinez MD When: Call the office for a follow-up in 2 to 3 weeks. And concerns after 5 PM and on the weekends call [phone] Test Results: Test results from this visit will be discussed in further detail at your follow- up appointment, if applicable. Discharge Plan Admission Attending Provider: Brittaney Martinez Primary Care Provider: Hanna Nuñez Instructions Additional Instructions / Restrictions: Recommend taking daily stool softeners and having MiraLAX available if needed. Also encourage sitz bath's as needed. Careful with hydrocodone/acetaminophen as it can cause constipation recommend taking along with ibuprofen as needed but make sure to take all pain meds with food. Discharge Orders/Prescriptions Prescriptions: New hydrocodone-acetaminophen 5-325 mg tablet 1 tab PO Q6H PRN (Reason: pain) 3 Days Qty: 20 0RF Continued escitalopram oxalate 20 mg tablet 20 mg PO DAILY Qty: 90 3RF buspirone 5 mg tablet 5 mg PO BID PRN (Reason: anxiety) Qty: 60 3RF trazodone 50 mg tablet 50 mg PO QHS PRN (Reason: insomnia) Qty: 60 2RF meloxicam 15 mg tablet 15 mg PO DAILY PRN (Reason: pain) topiramate [Topamax] 25 mg tablet 25 mg PO BID Qty: 180 1RF estradiol 2 mg tablet 2 mg PO DAILY Qty: 90 3RF indomethacin 25 mg capsule 25 mg PO ONCE PRN (Reason: headache) Qty: 90 0RF Rx Instructions: administer with food or milk Referrals / Follow Up: Hanna Nuñez MD [Primary Care Provider] - Disposition Disposition (needs filled in before D/C Order can be placed): Home, Self Care
== END 2023-10-19 14:35 | disposition home or self-care (01) ==
LOC: SDC 10:46 → AC 10:48
PROVIDERS: PCP Internal Medicine; Referring Provider Surgery; Visit Provider Surgery
PROC: (CPT 46260; principal; 2023-10-19 12:00)
DX: K64.8 Other hemorrhoids (principal); F41.1 Generalized anxiety disorder; F41.0 Panic disorder [episodic paroxysmal anxiety]; Z79.899 Other long term (current) drug therapy; K64.4 Residual hemorrhoidal skin tags
CPT/HCPCS: 46260; 00902; 88304; J7120; J0330; J2405

== ENCOUNTER 2023-10-28 10:55 | Inpatient (IN) | payer BC, SELFPAY ==
[2023-10-28 10:56] VITALS: BP 94/83; PULSE 81; RESP 16; TEMP 37.3; O2SAT 100; BMI 18.0
--- NOTE | 2023-10-28 11:19 | CT_ITS ---
HISTORY: perineal swelling. TECHNIQUE: Helically acquired images were obtained of the abdomen and pelvis after the intravenous administration of 100mL Isovue-370. A radiation dose optimization technique was used for this scan. 389 images. COMPARISON: US 11/05/2021. FINDINGS: LOWER CHEST: Lung bases clear. BOWEL: Bowel including appendix nondilated. No pericolonic inflammation. PERITONEUM: No significant ascites. LIVER: No enhancing mass. GALLBLADDER/BILIARY TREE: Gallbladder present. SPLEEN/PANCREAS/ADRENAL GLANDS: Homogeneous and nonenlarged. KIDNEYS: 3 mm right lower pole calculus without hydronephrosis. Unremarkable left kidney. VESSELS: No abdominal aortic aneurysm. PELVIC ORGANS: Absent uterus. Edematous appearance of the vagina extending to the perineum and vulva with a 1 x 2.3 cm air-fluid collection extending to the perianal soft tissues. BONES: Intact. CT/Abdomen/Pelvis W IV Cont ONLY IMPRESSION: Small perianal/perineal abscess with edematous appearance of the adjacent lower vagina and perineum, raising the possibility of fistula. 3 mm nonobstructing right renal calculus. Electronically Signed: Courtney Gutierrez MD at 12:55 EST ,
--- NOTE | 2023-10-28 11:25 | EX.ED.DYSGE1 ---
HPI <LYNDA Ellis - Last Filed: 10/28/23 13:25> History of Present Illness Chief Complaint: General Illness Narrative Narrative: 58-year-old female is status post hemorrhoidectomy with Dr. Martinez on 10/19. About 3 to 4 days ago she developed a fever and vulvar pain and swelling. She was seen in the surgery office on 10/[address] Mendoza who removed sutures and said there was mild dehiscence. She is continue to have significant vaginal pain and today had creamy discharge and was instructed to come to the ED. She is taking Tylenol and Motrin for pain. She has no dysuria or hematuria. She is taking MiraLAX and having regular bowel movements with very scant drops of bright red blood which is normal postoperatively. She has had nausea but no vomiting. She has had a complete hysterectomy. She had a new sexual partner 4 months ago. [facility] <LYNDA Ellis - Last Filed: 10/28/23 13:25> [facility] Medical History (Updated 10/28/23 @ 13:24 by LYNDA Ellis) Adhesive capsulitis of right shoulder Anemia Anxiety Anxiety and depression Breast cyst Cardiology follow-up encounter Cervical radiculopathy Chest pain Depression Difficulty swallowing Dysphagia Elevated ferritin Elevated liver enzymes Fatty liver Fatty liver disease, nonalcoholic Frequent headaches Gastric reflux Generalized anxiety disorder with panic attacks H/O emotional problems Headache Health care maintenance Hemicrania continua Hemorrhoids History of skin cancer History of stress test Insomnia Migraine headache Non-smoker Pain Right shoulder pain RUQ pain Subacromial bursitis of right shoulder joint Suicide attempt Home Medications buspirone 5 mg tablet 5 mg PO BID PRN anxiety #60 tabs 11/22/22 [Rx Last Taken 10/19/23] escitalopram oxalate 20 mg tablet 20 mg PO DAILY #90 tabs 12/25/22 [Rx Last Taken 10/28/23] trazodone 50 mg tablet 50 mg PO QHS PRN insomnia #60 tabs 06/22/23 [Rx Last Taken Unknown] meloxicam 15 mg tablet 15 mg PO DAILY PRN pain 08/15/23 [History Last Taken Unknown] estradiol 2 mg tablet 2 mg PO DAILY #90 tabs 09/04/23 [Rx Last Taken 10/28/23] indomethacin 25 mg capsule 25 mg PO ONCE PRN headache #90 caps 10/12/23 [Rx Last Taken Unknown] hydrocodone-acetaminophen 5-325mg 5mg-325mg 1 tab PO Q6H PRN pain 3 days #20 tabs 10/19/23 [Rx Last Taken Unknown] topiramate 25 mg tablet (Topamax) 25 mg PO DAILY 10/28/23 [History Last Taken 10/28/23] Allergy/AdvReac Type Severity Reaction Status Date / Time iodine Allergy Intermediate Hives Verified 10/28/23 10:56 promethazine [From Phenergan] Allergy Mild Nausea Verified 10/28/23 10:56 Family History Father Skin cancer Surgical History History of hysterectomy History of tonsillectomy Hx of colonoscopy S/P hemorrhoidectomy Social History Smoking Status: Never smoker alcohol intake: never substance use type: does not use caffeine: Yes (3 x/ wk) Type: tea what type of physical activity do you participate in: none ROS <LYNDA Ellis - Last Filed: 10/28/23 13:25> ROS ED ROS Narrative Constitutional: Positive for fever, chills. GI: Positive for nausea. Negative for abdominal pain, vomiting. : Negative for dysuria, hematuria. EXAM <LYNDA Ellis - Last Filed: 10/28/23 13:25> Physical Exam Narrative Exam Narrative: CONST: Patient sitting in no acute distress. EYES: Normal inspection. NECK: Normal inspection. RESP: No respiratory distress, CTAB. CVS: Regular rate and rhythm, no murmur, no gallop. ABD: Soft and nontender, no guarding or rebound, nondistended. : Diffuse symmetric swelling lateral posterior labia, no fluctuance or crepitus, no drainage. Postoperative hemorrhoidectomy site has sutures removed and small area of dehiscence, no active drainage. No cellulitis in the perineal area. Back: Normal inspection. SKIN: Color normal, no rash, warm, dry, intact. EXTREMITIES: Normal appearance, no pedal edema. NEURO: Oriented x4. PSYCH: Normal affect. Const Vital Signs: 10/28/23 10:56 10/28/23 11:40 10/28/23 13:27 Temperature 99.1 F 97.5 F L Temperature Source Temporal Pulse Rate 81 86 Respiratory Rate 16 15 Respiratory Effort Normal Non-Labored Respiratory Pattern Normal Blood Pressure 94/83 H 138/77 H Blood Pressure Mean 86 97 Pulse Ox 100 98 Oxygen Delivery Method Room Air <Sumanth Ortiz MD - Last Filed: 10/28/23 13:50> Physical Exam Const Vital Signs: 10/28/23 10:56 10/28/23 11:40 10/28/23 13:27 Temperature 99.1 F 97.5 F L Temperature Source Temporal Pulse Rate 81 86 Respiratory Rate 16 15 Respiratory Effort Normal Non-Labored Respiratory Pattern Normal Blood Pressure 94/83 H 138/77 H Blood Pressure Mean 86 97 Pulse Ox 100 98 Oxygen Delivery Method Room Air MDM <LYNDA Ellis - Last Filed: 10/28/23 13:25> MDM MDM Narrative Medical decision making narrative: History gathered from: Patient and family member Patient is POD #9 from hemorrhoidectomy has had a few days of fever and vulvar pain and swelling with vaginal discharge. She appears well and nontoxic. BP is 94/83, temp 99.1 F, otherwise normal vital signs. She does not look ill or toxic. Abdomen is soft and nontender. Her posterior vulva is swollen but the perineum looks normal. The postop hemorrhoidectomy site has slight dehiscence but no signs of cellulitis or abscess. There is no drainage present on exam. Labs show white count of 22.0, lactate 0.9. CT shows a small perianal/perineal abscess with edema of the vagina raising the possibility of a fistula. I discussed the case with Dr. Mendoza who admitted the patient under his service and requested IV Zosyn. Patient was comfortable with this plan and all questions were answered. Consults: General surgery Lab Data Attestation: I reviewed the patient's lab results. Labs: Laboratory Results - last 24 hr 10/28/23 10/28/23 10/28/23 11:25 11:41 12:04 WBC 22.0 H RBC 3.63 L Hgb 11.4 L Hct 34.9 L MCV 96.1 MCH 31.4 MCHC 32.7 RDW Std Deviation 42.5 RDW Coeff of Colten 12.1 Plt Count 247 MPV 9.7 Immature Gran % (Auto) 1.200 H Neut % (Auto) 83.8 H Lymph % (Auto) 6.5 L Dukes % (Auto) 7.5 Eos % (Auto) 0.5 Baso % (Auto) 0.5 Absolute Neuts (auto) 18.4 H Absolute Lymphs (auto) 1.43 Nucleated RBC % 0 Diff Path Review May foll Sodium 142 Potassium 3.4 L Chloride 112 H Carbon Dioxide 25.0 Anion Gap 5 BUN 21 H Creatinine 0.80 Estim Creat Clear Calc 65.78 Est GFR (MDRD) Af Amer 96 Est GFR (MDRD) Non-Af 79 BUN/Creatinine Ratio 26.4 H Glucose 96 Lactic Acid 0.9 Calcium 9.1 Urine Color Yellow Urine Clarity Clear Urine pH 6.0 Ur Specific [place]xton 1.005 Urine Protein 15 H Urine Glucose (UA) Normal Urine Ketones Negative Urine Occult Blood 25 H Urine Nitrite Negative Urine Bilirubin Negative Urine Urobilinogen Normal Ur Leukocyte Esterase 500 H Urine RBC 0 SEEN Urine WBC 5-10 SEEN Ur Squamous Epith Cells 0-5 SEEN Urine Bacteria RARE Urine Mucus 0 SEEN Radiography Diagnostic Testing: Clinical Impression(s) from Imaging Studies Abdomen/Pelvis CT 10/28/23 11:19 IMPRESSION: Small perianal/perineal abscess with edematous appearance of the adjacent lower vagina and perineum, raising the possibility of fistula. 3 mm nonobstructing right renal calculus. Electronically Signed: Courtney Gutierrez MD at 12:55 EST Reading Location ID and State: [facility] / [place] Tel , Service support , <Sumanth Ortiz MD - Last Filed: 10/28/23 13:50> [facility] Narrative Medical decision making narrative: History gathered from: Patient and family member Patient is POD #9 from hemorrhoidectomy has had a few days of fever and vulvar pain and swelling with vaginal discharge. She appears well and nontoxic. BP is 94/83, temp 99.1 F, otherwise normal vital signs. She does not look ill or toxic. Abdomen is soft and nontender. Her posterior vulva is swollen but the perineum looks normal. The postop hemorrhoidectomy site has slight dehiscence but no signs of cellulitis or abscess. There is no drainage present on exam. Labs show white count of 22.0, lactate 0.9. CT shows a small perianal/perineal abscess with edema of the vagina raising the possibility of a fistula. I discussed the case with Dr. Mendoza who admitted the patient under his service and requested IV Zosyn. Patient was comfortable with this plan and all questions were answered. Consults: General surgery Dr. Ortiz: I have personally performed a face to face assessment of the patient and have reviewed the VANI Note. I performed a substantive portion of the visit including all aspects of the following. My corley findings include: History is history of hemorrhoidectomy, minor wound dehiscence, now with a few days of labial swelling, improved pain after defecation. Reported fever. Exam is afebrile. Vital signs noted. Nontoxic-appearing. Regular rate and rhythm. Lungs clear to auscultation bilaterally. Abdomen soft and nontender. Chaperoned to visual inspection of labia shows mild swelling and edema. Medical Decision Making: Check labs. Check CT. Discussed with surgery. IV Zosyn. Admit. Other additions or changes: [None] History & Record Review Discussion w/independent historian: Patient Additional record(s) reviewed:: Prior outpatient record (Recent visit to surgery as an outpatient in follow-up from hemorrhoidectomy) Lab Data Labs: Laboratory Results - last 24 hr 10/28/23 10/28/23 10/28/23 11:25 11:41 12:04 WBC 22.0 H RBC 3.63 L Hgb 11.4 L Hct 34.9 L MCV 96.1 MCH 31.4 MCHC 32.7 RDW Std Deviation 42.5 RDW Coeff of Colten 12.1 Plt Count 247 MPV 9.7 Immature Gran % (Auto) 1.200 H Neut % (Auto) 83.8 H Lymph % (Auto) 6.5 L Dukes % (Auto) 7.5 Eos % (Auto) 0.5 Baso % (Auto) 0.5 Absolute Neuts (auto) 18.4 H Absolute Lymphs (auto) 1.43 Nucleated RBC % 0 Diff Path Review May foll Sodium 142 Potassium 3.4 L Chloride 112 H Carbon Dioxide 25.0 Anion Gap 5 BUN 21 H Creatinine 0.80 Estim Creat Clear Calc 65.78 Est GFR (MDRD) Af Amer 96 Est GFR (MDRD) Non-Af 79 BUN/Creatinine Ratio 26.4 H Glucose 96 Lactic Acid 0.9 Calcium 9.1 Urine Color Yellow Urine Clarity Clear Urine pH 6.0 Ur Specific [place]xton 1.005 Urine Protein 15 H Urine Glucose (UA) Normal Urine Ketones Negative Urine Occult Blood 25 H Urine Nitrite Negative Urine Bilirubin Negative Urine Urobilinogen Normal Ur Leukocyte Esterase 500 H Urine RBC 0 SEEN Urine WBC 5-10 SEEN Ur Squamous Epith Cells 0-5 SEEN Urine Bacteria RARE Urine Mucus 0 SEEN Radiography Diagnostic Testing: Clinical Impression(s) from Imaging Studies Abdomen/Pelvis CT 10/28/23 11:19 IMPRESSION: Small perianal/perineal abscess with edematous appearance of the adjacent lower vagina and perineum, raising the possibility of fistula. 3 mm nonobstructing right renal calculus. Electronically Signed: Courtney Gutierrez MD at 12:55 EST Reading Location ID and State: [facility] / [place] Tel , Service support , Discharge Plan Triage Chief Complaint: General Illness ED Midlevel Provider: Cecilia Rdz ED Provider: Sumanth Ortiz Dx/Rx/DC Orders Clinical Impression: Perineal abscess, Post-operative complication, Sepsis Primary Care Provider: Hanna Nuñez
[2023-10-28 11:32] LABS: Mucous, Urine 0 SEEN /hpf (<or=2+); Red Blood Cells-Urine 0 SEEN /hpf (0-5)
[2023-10-28 11:37] LABS: Color, Urine Yellow (Yellow); Glucose, Dipstick Normal (Normal); Ketone-Dipstick Negative (Negative); Leukocyte Esterase-Dipstick 500 /ul (Negative); Nitrite-Dipstick Negative (Negative); Occult Blood-Urine 25 /ul (Negative); Protein-Dipstick 15 mg/dl (Negative); Specific Gravity, Urine 1.005 (1.002-1.030); Urine Bilirubin Dipstick Negative (Negative); Urine Clarity Clear (Clear); Urine Urobilinogen Normal (Normal)
[2023-10-28 11:43] LABS: Bacteria RARE /hpf (None Seen); Squamous Epithelial Cells - UA 0-5 SEEN /hpf (5-10); White Blood Cells 5-10 SEEN /hpf (0-5)
[2023-10-28 11:51] LABS: Absolute Lymphocyte Count 1.43 X10^3/uL (0.83-4.51); Absolute Neutrophil Count 18.4 X10^3/uL (2.0-7.7); Basophil# 0.12 X10^3/uL; Basophil% 0.5 % (0-1); Differential Indicated SCAN CRITERIA MET; Eosinophil# 0.12 X10^3/uL; Eosinophils% 0.5 % (0-5); Hematocrit 34.9 % (37-47); Hemoglobin 11.4 g/dL (12.0-15.0); Lymphocyte # 1.43 X10^3/ul (0.83-4.51); Lymphocyte % 6.5 % (19-41); Mean Corp Hgb Conc 32.7 g/dL (32-36); Mean Corpuscular Hgb 31.4 pg (27.0-32.0); Mean Corpuscular Volume 96.1 fL (81-99); Mean Platelet Vol. 9.7 fl (6.2-12.0); Monocyte# 1.64 X10^3/uL; Monocyte% 7.5 % (0-10); NRBC Flagged by Analyzer 0 % (0-5); Neutrophil # 18.37 X10^3/uL (2.7-7.7); Neutrophil % 83.8 % (47-70); POSITIVE DIFFERENTIAL YES; Platelet Count 247 K/mm3 (150-450); RBC Distribution Width CV 12.1 % (11.6-14.6); RBC Distribution Width SD 42.5 fl (35.1-43.9); Red Blood Count 3.63 M/mm3 (4.2-5.4)
[2023-10-28] MEDS: Ondansetron 4 MG/2 ML Vial IV ×2 (11:51→13:55)
[2023-10-28] MEDS: Ketorolac 15 MG/ML Vial IV (11:51)
[2023-10-28] MEDS: 0.9% Normal Saline (1000mL) 1,000 ML 999 ML IV (11:51)
[2023-10-28] MEDS: DiphenhydrAMINE 50 MG/ML Syringe 25 MG IV (11:51)
[2023-10-28 12:00] LABS: Anion Gap 5 (5-15); BUN 21 mg/dL (7-18); BUN/Creat Ratio 26.4 RATIO (10-20); Calcium,Total 9.1 mg/dL (8.5-10.1); Chloride 112 mmol/L (98-107); EST Glomerular Filtration Rate 79 mL/min (>60); Est Glom Filt Rate - Afr Amer 96 mL/min (>60); Estimated Creatinine Clearance 65.78 ml/min; Glucose 96 mg/dL (74-106); Potassium 3.4 mmol/L (3.5-5.1); Sodium Level 142 mmol/L (136-145)
[2023-10-28 12:35] LABS: Lactic Acid 0.9 mmol/L (0.4-1.9)
--- OUTSIDE RECORDS SUMMARY | 2023-10-28 12:37 | XMS RPT_ITS | CCD ---
Author Name Unknown Address [address] [place] [address] Organization [facility] Care Team Providers Care Armature Coil Winder Name Role Phone Unavailable Primary Care Provider ALECIA Renteria Attending Unavailable Allergies Allergy Classification Reported Allergen(s) Allergy Type Date of Onset Reaction(s) Facility (2 sources) Antihistamines; Translations: [ANTIHISTAMINES] Propensity to adverse reactions 11-19-2002 Itching [facility] Work Phone: (2 sources) Phenothiazine; Translations: [PHENOTHIAZINES] Propensity to adverse reactions 11-19-2002 Itching [facility] Work Phone: Medications Completed/Discontinued Medications Medication [...] 54.98 kg Alecia Worthy APRN.CNM Work Phone: [facility] 06-27-2023 09:53-0400 Diastolic blood pressure 70 mm[Hg] Alecia Worthy APRN.CNM Work Phone: [facility] 06-27-2023 09:53-0400 Systolic blood pressure 110 mm[Hg] Alecia Worthy APRN.CNM Work Phone: [facility] Encounters Encounter Date Encounter Type Care Provider Facility Start: 06-27-2023 End: 06-27-2023 ambulatory ALECIA WORTHY Facility:[facility] Start: 06-27-2023 End: 06-27-2023 Patient encounter procedure Alecia Paytonclarence SOFA COVER INSPECTOR.ELSIM Work Phone: OB/Gynecology Procedures Date Procedure Procedure Detail Performing Clinician Start: 12-27-2011 Lipid 1996 panel - S emerita or Plasma Alecia Worthy SOFA COVER INSPECTOR.LUH Work Phone: Plan of Treatment Date Care Activity Detail Author Start: 05-04-2023 Covid-19 Vaccine () Covid-19 Vaccine () [facility] Start: 09-03-2022 Depression Assessment Depression Assessment [facility] Start: 12-26-2016 Lipid 1996 panel - Serum or Plasma Lipid Screening [facility] Start: 12-26-2016 Pap Testing Pap Testing [facility] Start: 2016 Shingrix Vaccine (1 of 2) Shingrix Vaccine (1 of 2) [facility] Start: 10-18-2014 Diabetes Screening Diabetes Screening [facility] Start: 08-09-2013 Mammography Mammogram Screening [facility] Start: 2011 Cologuard (FIT-DNA) Cologuard (FIT-DNA) [facility] Start: 2011 Colonoscopy Colonoscopy [facility] Start: 2011 Colorectal Cancer Screening Colorectal Cancer Screening [facility] Start: [address] Colonography [facility] Start: 2011 Fecal Occult Blood Fecal Occult Blood [facility] Start: 2011 Sigmoidoscopy Sigmoidoscopy [facility] Start: 03-21-2011 HPV Testing HPV Testing [facility] Start: 04-08-2007 Hepatitis B Vaccine (2 of 3 - 19+ 3-dose series) Hepatitis B Vaccine (2 of 3 - 19+ 3-dose series) [facility] Start: 1985 Urine microalbumin profile DTaP,Tdap,Td Vaccine (1 - Tdap) [facility] Start: 1984 Hepatitis C Screening Hepatitis C Screening [facility] BACTERIAL VAGINOSIS NAAT BACTERI AL VAGINOSIS NAAT Lab Routine Vaginal odor 06/27/2023 10:29 AM EDT [facility] Work Phone: GUNNER/TRICHOMONAS NAAT GUNNER /TRICHOMONAS NAAT Lab Routine Vaginal odor 06/27/2023 10:29 AM EDT [facility] Work Phone: Chlamydia trachomatis+Neisseria gonorrhoeae DNA [Presence] in Unspecified specimen by JESI with probe detection GONORRHEA/CHLAMYDIA NAAT Lab Routine Vaginal odor Concern about STD in female without diagnosis 06/27/2023 10:29 AM EDT [facility] Work Phone: Immunizations Immunization Date Immunization Notes Care Provider Carolyn sy 03-11-2007 hepatitis B vaccine, adult dosage Alecia Worthy APRN.CNM Work Phone: [facility] Work Phone: Payers Date Payer Category Payer Unknown [employer] PPO [id number] 2022-Present [phone] [address] [place] [address] PPO [id number] 2022 Unknown [id number] Social History Date Type Detail Facility Start: 12-27-2011 Tobacco smoking stat [facility] Never smoked tobacco [facility] Work Phone: Start: 12-27-2011 Tobacco use and exposure Smokeless tobacco non-user [facility] Work Phone: Start: 06-27-2023 Alcohol intake Current non-dr baseball glove shaper of alcohol (finding) [facility] Start: 03-23-2021 End: 06-27-2023 History of Social function [facility] Start: 03-23-2021 End: 06-27-2023 Tobacco use panel [facility] National Score (1-100), lower number is lower risk Not on file [facility] Start: 1965 Sex Assigned At Not on file C [facility] Progress note 06-27-2023 Note Date & Type Note Facility 06-27-2023 Note HNO ID: [id number] Author: Alecia Worthy APRN.CNM Service: ? Author Type: Home Organizer Type: Progress Notes Filed: 06/27/2023 10:31 AM Note Text: Screw Machine Set Up Operator Tool offered: Patient declines. Grocery Supervisor Visit 06/27/2023 10:25 AM CC: STD screening HPI: Jaylin West is a 57 year old woman here for STD screening. Reports she is recently from of 35 years and has new partner. [place] a lump inside vagina and thinks it [...] hygiene and no douching Alecia Worthy APRN.CNM [facility] History of Present illness Narrative 06-27-2023 Alecia Worthy APRN.LUH - 06/27/2023 9:50 AM EDT Note Date & Type Note Facility 06-27-2023 History of Presen t illness Narrative Screw Machine Set Up Operator Tool offered: Patient declines. Grocery Supervisor Visit 06/27/2023 10:25 AM CC: STD screening HPI: Jaylin West is a 57 year old woman here for STD screening. Reports she is recently from of 35 years and has new partner. [place] a lump inside vagina and thinks it [...] Alecia Worthy APRN.CNM documented in this encounter [facility] History of Past illness Narrative 05-29-2006 Note Date & Type Note Facility documented as of this encounter (statuses as of 06/27/2023) [facility] Evaluation note Note Date & Type Note Facility documented in this encounter [facility] Summary Purpose Family History No Family [...] or prosecute any alcohol or drug abuse patient.[facility] Reason for Visit (unrecogniz ed section [...] BE BASED ON THE PRIMARY CLINICAL RECORDS. [employer] provides no warranty or guarantee of the accuracy or completeness of information in this document.
[2023-10-28 13:27] VITALS: BP 138/77; PULSE 86; RESP 15; TEMP 36.4; O2SAT 98
--- OUTSIDE RECORDS SUMMARY | 2023-10-28 13:30 | XMS RPT_ITS | CCD ---
Author Name Unknown Address [address] [place] [address] Organization [facility] Care Team Providers Care Medical Case Worker Name Role Phone Unavailable Primary Care Provider ALECIA Renteria Attending Unavailable Allergies Allergy Classification Reported Allergen(s) Allergy Type Date of Onset Reaction(s) Facility (2 sources) Antihistamines; Translations: [ANTIHISTAMINES] Propensity to adverse reactions 11-19-2002 Itching [facility] Work Phone: (2 sources) Phenothiazine; Translations: [PHENOTHIAZINES] Propensity to adverse reactions 11-19-2002 Itching [facility] Work Phone: Medications Completed/Discontinued Medications Medication [...] 54.98 kg Alecia Worthy APRN.CNM Work Phone: [facility] 06-27-2023 09:53-0400 Diastolic blood pressure 70 mm[Hg] Alecia Worthy APRN.CNM Work Phone: [facility] 06-27-2023 09:53-0400 Systolic blood pressure 110 mm[Hg] Alecia Worthy APRN.CNM Work Phone: [facility] Encounters Encounter Date Encounter Type Care Provider Facility Start: 06-27-2023 End: 06-27-2023 ambulatory ALECIA WORTHY Facility:[facility] Start: 06-27-2023 End: 06-27-2023 Patient encounter procedure Alecia Paytonclarence STUD BEEF CATTLE FARMER.LESIM Work Phone: OB/Gynecology Procedures Date Procedure Procedure Detail Performing Clinician Start: 12-27-2011 Lipid 1996 panel - S emerita or Plasma Alecia Worthy STUD BEEF CATTLE FARMER.LUH Work Phone: Plan of Treatment Date Care Activity Detail Author Start: 05-04-2023 Covid-19 Vaccine () Covid-19 Vaccine () [facility] Start: 09-03-2022 Depression Assessment Depression Assessment [facility] Start: 12-26-2016 Lipid 1996 panel - Serum or Plasma Lipid Screening [facility] Start: 12-26-2016 Pap Testing Pap Testing [facility] Start: 2016 Shingrix Vaccine (1 of 2) Shingrix Vaccine (1 of 2) [facility] Start: 10-18-2014 Diabetes Screening Diabetes Screening [facility] Start: 08-09-2013 Mammography Mammogram Screening [facility] Start: 2011 Cologuard (FIT-DNA) Cologuard (FIT-DNA) [facility] Start: 2011 Colonoscopy Colonoscopy [facility] Start: 2011 Colorectal Cancer Screening Colorectal Cancer Screening [facility] Start: [address] Colonography [facility] Start: 2011 Fecal Occult Blood Fecal Occult Blood [facility] Start: 2011 Sigmoidoscopy Sigmoidoscopy [facility] Start: 03-21-2011 HPV Testing HPV Testing [facility] Start: 04-08-2007 Hepatitis B Vaccine (2 of 3 - 19+ 3-dose series) Hepatitis B Vaccine (2 of 3 - 19+ 3-dose series) [facility] Start: 1985 Urine microalbumin profile DTaP,Tdap,Td Vaccine (1 - Tdap) [facility] Start: 1984 Hepatitis C Screening Hepatitis C Screening [facility] BACTERIAL VAGINOSIS NAAT BACTERI AL VAGINOSIS NAAT Lab Routine Vaginal odor 06/27/2023 10:29 AM EDT [facility] Work Phone: GUNNER/TRICHOMONAS NAAT GUNNER /TRICHOMONAS NAAT Lab Routine Vaginal odor 06/27/2023 10:29 AM EDT [facility] Work Phone: Chlamydia trachomatis+Neisseria gonorrhoeae DNA [Presence] in Unspecified specimen by JESI with probe detection GONORRHEA/CHLAMYDIA NAAT Lab Routine Vaginal odor Concern about STD in female without diagnosis 06/27/2023 10:29 AM EDT [facility] Work Phone: Immunizations Immunization Date Immunization Notes Care Provider Carolyn ys 03-11-2007 hepatitis B vaccine, adult dosage Alecia Worthy APRN.CNM Work Phone: [facility] Work Phone: Payers Date Payer Category Payer Unknown [employer] PPO [id number] 2022-Present [phone] [address] [place] [address] PPO [id number] 2022 Unknown [id number] Social History Date Type Detail Facility Start: 12-27-[address] [facility] Never smoked tobacco [facility] Work Phone: Start: 12-27-2011 Tobacco use and exposure Smokeless tobacco non-user [facility] Work Phone: Start: 06-27-2023 Alcohol intake Current non-dr countersinker balance screw hole of alcohol (finding) [facility] Start: 03-23-2021 End: 06-27-2023 History of Social function [facility] Start: 03-23-2021 End: 06-27-2023 Tobacco use panel [facility] National Score (1-100), lower number is lower risk Not on file [facility] Start: 1965 Sex Assigned At Not on file [facility] Progress note 06-27-2023 Note Date & Type Note Facility 06-27-2023 Note HNO ID: [id number] Author: Alecia Worthy APRN.CNM Service: ? Author Type: Thermodynamic Physicist Type: Progress Notes Filed: 06/27/2023 10:31 AM Note Text: Supervisor Cutting And Boning offered: Patient declines. Termite Treater Helper Visit 06/27/2023 10:25 AM CC: STD screening HPI: Jaylin West is a 57 year old woman here for STD screening. Reports she is recently from of 35 years and has new partner. [place] a lump inside vagina and thinks it [...] hygiene and no douching Alecia Worthy APRN.CNM [facility] History of Present illness Narrative 06-27-2023 Alecia Worthy APRN.LUH - 06/27/2023 9:50 AM EDT Note Date & Type Note Facility 06-27-2023 History of Presen t illness Narrative Supervisor Cutting And Boning offered: Patient declines. Termite Treater Helper Visit 06/27/2023 10:25 AM CC: STD screening HPI: Jaylin West is a 57 year old woman here for STD screening. Reports she is recently from of 35 years and has new partner. [place] a lump inside vagina and thinks it [...] Alecia Worthy APRN.CNM documented in this encounter [facility] History of Past illness Narrative 05-29-2006 Note Date & Type Note Facility documented as of this encounter (statuses as of 06/27/2023) [facility] Evaluation note Note Date & Type Note Facility documented in this encounter [facility] Summary Purpose Family History No Family [...] or prosecute any alcohol or drug abuse patient.[facility] Reason for Visit (unrecogniz ed section [...] BE BASED ON THE PRIMARY CLINICAL RECORDS. [employer] provides no warranty or guarantee of the accuracy or completeness of information in this document.
[2023-10-28] MEDS: Morphine 4 MG/ML Syringe IV (13:55)
[2023-10-28] MEDS: Piperacil/Tazobactam 3.375 GM in 0.9% Normal Saline (50mL MB+) 50 ML IV ×2 (13:55→21:54)
--- OUTSIDE RECORDS SUMMARY | 2023-10-28 14:30 | XMS RPT_ITS | CCD ---
Author Name Unknown Address [address] [place] [address] Organization [facility] Care Team Providers Care Slunk Skinner Name Role Phone Unavailable Primary Care Provider ALECIA Renteria Attending Unavailable Allergies Allergy Classification Reported Allergen(s) Allergy Type Date of Onset Reaction(s) Facility (2 sources) Antihistamines; Translations: [ANTIHISTAMINES] Propensity to adverse reactions 11-19-2002 Itching [facility] Work Phone: (2 sources) Phenothiazine; Translations: [PHENOTHIAZINES] Propensity to adverse reactions 11-19-2002 Itching [facility] Work Phone: Medications Completed/Discontinued Medications Medication Drug [...] 54.98 kg Alecia Worthy APRN.CNM Work Phone: [facility] 06-27-2023 09:53-0400 Diastolic blood pressure 70 mm[Hg] Alecia Worthy APRN.CNM Work Phone: [facility] 06-27-2023 09:53-0400 Systolic blood pressure 110 mm[Hg] Alecia Worthy APRN.CNM Work Phone: [facility] Encounters Encounter Date Encounter Type Care Provider Facility Start: 06-27-2023 End: 06-27-2023 ambulatory ALECIA WORTHY Facility:[facility] Start: 06-27-2023 End: 06-27-2023 Patient encounter procedure Alecia Paytonclarence CUPOLA MELTING SUPERVISOR.ELSIM Work Phone: OB/Gynecology Procedures Date Procedure Procedure Detail Performing Clinician Start: 12-27-2011 Lipid 1996 panel - S emerita or Plasma Alecia Worthy CUPOLA MELTING SUPERVISOR.LUH Work Phone: Plan of Treatment Date Care Activity Detail Author Start: 05-04-2023 Covid-19 Vaccine () Covid-19 Vaccine () [facility] Start: 09-03-2022 Depression Assessment Depression Assessment [facility] Start: 12-26-2016 Lipid 1996 panel - Serum or Plasma Lipid Screening [facility] Start: 12-26-2016 Pap Testing Pap Testing [facility] Start: 2016 Shingrix Vaccine (1 of 2) Shingrix Vaccine (1 of 2) [facility] Start: 10-18-2014 Diabetes Screening Diabetes Screening [facility] Start: 08-09-2013 Mammography Mammogram Screening [facility] Start: 2011 Cologuard (FIT-DNA) Cologuard (FIT-DNA) [facility] Start: 2011 Colonoscopy Colonoscopy [facility] Start: 2011 Colorectal Cancer Screening Colorectal Cancer Screening [facility] Start: [address] Colonography [facility] Start: 2011 Fecal Occult Blood Fecal Occult Blood [facility] Start: 2011 Sigmoidoscopy Sigmoidoscopy [facility] Start: 03-21-2011 HPV Testing HPV Testing [facility] Start: 04-08-2007 Hepatitis B Vaccine (2 of 3 - 19+ 3-dose series) Hepatitis B Vaccine (2 of 3 - 19+ 3-dose series) [facility] Start: 1985 Urine microalbumin profile DTaP,Tdap,Td Vaccine (1 - Tdap) [facility] Start: 1984 Hepatitis C Screening Hepatitis C Screening [facility] BACTERIAL VAGINOSIS NAAT BACTERI AL VAGINOSIS NAAT Lab Routine Vaginal odor 06/27/2023 10:29 AM EDT [facility] Work Phone: GUNNER/TRICHOMONAS NAAT GUNNER /TRICHOMONAS NAAT Lab Routine Vaginal odor 06/27/2023 10:29 AM EDT [facility] Work Phone: Chlamydia trachomatis+Neisseria gonorrhoeae DNA [Presence] in Unspecified specimen by JESI with probe detection GONORRHEA/CHLAMYDIA NAAT Lab Routine Vaginal odor Concern about STD in female without diagnosis 06/27/2023 10:29 AM EDT [facility] Work Phone: Immunizations Immunization Date Immunization Notes Care Provider Carolyn sy 03-11-2007 hepatitis B vaccine, adult dosage Alecia Worthy APRN.CNM Work Phone: [facility] Work Phone: Payers Date Payer Category Payer Unknown [employer] PPO [id number] 2022-Present [phone] [address] [place] [address] PPO [id number] 2022 Unknown [id number] Social History Date Type Detail Facility Start: 12-27-2011 Tobacco smoking stat [facility] Never smoked tobacco [facility] Work Phone: Start: 12-27-2011 Tobacco use and exposure Smokeless tobacco non-user [facility] Work Phone: Start: 06-27-2023 Alcohol intake Current non-dr dinker of alcohol (finding) [facility] Start: 03-23-2021 End: 06-27-2023 History of Social function [facility] Start: 03-23-2021 End: 06-27-2023 Tobacco use panel [facility] National Score (1-100), lower number is lower risk Not on file [facility] Start: 1965 Sex Assigned At Not on file [facility] Progress note 06-27-2023 Note Date & Type Note Facility 06-27-2023 Note HNO ID: [id number] Author: Alecia Worthy APRN.CNM Service: ? Author Type: Lithopone Charger Type: Progress Notes Filed: 06/27/2023 10:31 AM Note Text: Customer Service Dispatcher offered: Patient declines. Tour Production Supervisor Visit 06/27/2023 10:25 AM CC: STD screening HPI: Jaylin West is a 57 year old woman here for STD screening. Reports she is recently from of 35 years and has new partner. [place] a lump inside vagina and thinks it [...] hygiene and no douching Alecia Worthy APRN.CNM [facility] History of Present illness Narrative 06-27-2023 Alecia Worthy APRN.LUH - 06/27/2023 9:50 AM EDT Note Date & Type Note Facility 06-27-2023 History of Presen t illness Narrative Customer Service Dispatcher offered: Patient declines. Tour Production Supervisor Visit 06/27/2023 10:25 AM CC: STD screening HPI: Jaylin West is a 57 year old woman here for STD screening. Reports she is recently from of 35 years and has new partner. [place] a lump inside vagina and thinks it [...] Alecia Worthy APRN.CNM documented in this encounter [facility] History of Past illness Narrative 05-29-2006 Note Date & Type Note Facility documented as of this encounter (statuses as of 06/27/2023) [facility] Evaluation note Note Date & Type Note Facility documented in this encounter [facility] Summary Purpose Family History No Family History [...] or prosecute any alcohol or drug abuse patient.[facility] Reason for Visit (unrecogniz ed section and [...] BE BASED ON THE PRIMARY CLINICAL RECORDS. [employer] provides no warranty or guarantee of the accuracy or completeness of information in this document.
[2023-10-28 15:03] VITALS: RESP 18; BMI 19.5
--- NOTE | 2023-10-28 17:44 | PCM.HP.STD ---
HPI - General General Date of Admission: 10/28/23 Chief Complaint: Vaginal drainage and postoperative pain HPI Narrative TREY DOUGHERTY, is a 58 F, recently postoperative from excisional hemorrhoidectomy on 10/19/[address] Martinez, who presented to [facility] emergency department upon my recommendation after a phone call earlier today to report ongoing low-grade fevers and new vaginal drainage. She was seen by me on 10/26/2023 for an urgent clinic visit due to concerns about a possible postoperative infection. At that time she had reported low-grade temps and progressive swelling of her vulva. Exam and shown simply dehiscence of her hemorrhoidectomy suture line but otherwise no signs of infection. She was thus recommended further sitz bath's with Epsom salts and provided recommendations for topical analgesics. She shares that this therapy seem to help her discomfort as she was able to have bowel movement being without significant discomfort. However, patient states that she awoke this morning to foul-smelling green vaginal discharge on a underwear pad and this prompted her phone call. Patient's ER visit was notable for CBC that showed a leukocytosis of 22,000. CT imaging of the abdomen pelvis was obtained demonstrating probable abscess that measured 1 x 2 cm in the perineal region and suggestion of a possible rectovaginal fistula with an air pocket. Plan patient was later visited she acknowledges that there could be some potential for consideration of a sexually transmitted disease and she has had a new sexual partner in the last 4 months. [facility] Medical History (Updated 10/28/23 @ 13:24 by LYNDA Ellis) Adhesive capsulitis of right shoulder Anemia Anxiety Anxiety and depression Breast cyst Cardiology follow-up encounter Cervical radiculopathy Chest pain Depression Difficulty swallowing Dysphagia Elevated ferritin Elevated liver enzymes Fatty liver Fatty liver disease, nonalcoholic Frequent headaches Gastric reflux Generalized anxiety disorder with panic attacks H/O emotional problems Headache Health care maintenance Hemicrania continua Hemorrhoids History of skin cancer History of stress test Insomnia Migraine headache Non-smoker Pain Right shoulder pain RUQ pain Subacromial bursitis of right shoulder joint Suicide attempt Home Medications buspirone 5 mg tablet 5 mg PO BID PRN anxiety #60 tabs 11/22/22 [Rx Last Taken 10/19/23] escitalopram oxalate 20 mg tablet 20 mg PO DAILY #90 tabs 12/25/22 [Rx Last Taken 10/28/23] trazodone 50 mg tablet 50 mg PO QHS PRN insomnia #60 tabs 06/22/23 [Rx Last Taken Unknown] meloxicam 15 mg tablet 15 mg PO DAILY PRN pain 08/15/23 [History Last Taken Unknown] estradiol 2 mg tablet 2 mg PO DAILY #90 tabs 09/04/23 [Rx Last Taken 10/28/23] indomethacin 25 mg capsule 25 mg PO ONCE PRN headache #90 caps 10/12/23 [Rx Last Taken Unknown] hydrocodone-acetaminophen 5-325mg 5mg-325mg 1 tab PO Q6H PRN pain 3 days #20 tabs 10/19/23 [Rx Last Taken Unknown] topiramate 25 mg tablet (Topamax) 25 mg PO DAILY 10/28/23 [History Last Taken 10/28/23] Allergy/AdvReac Type Severity Reaction Status Date / Time iodine Allergy Intermediate Hives Verified 10/28/23 10:56 promethazine [From Phenergan] Allergy Mild Nausea Verified 10/28/23 10:56 Family History Father Skin cancer Surgical History History of hysterectomy History of tonsillectomy Hx of colonoscopy S/P hemorrhoidectomy Social History Smoking Status: Never smoker alcohol intake: never substance use type: does not use caffeine: Yes (3 x/ wk) Type: tea what type of physical activity do you participate in: none Vital Signs Vital Signs Vital Signs: 10/28/23 10:56 10/28/23 11:40 10/28/23 13:27 Temperature 99.1 F 97.5 F L Temperature Source Temporal Pulse Rate 81 86 Respiratory Rate 16 15 Respiratory Effort Normal Non-Labored Respiratory Pattern Normal Blood Pressure 94/83 H 138/77 H Blood Pressure Mean 86 97 Pulse Ox 100 98 Oxygen Delivery Method Room Air 10/28/23 15:03 Temperature Temperature Source Pulse Rate Respiratory Rate 18 Respiratory Effort Respiratory Pattern Blood Pressure Blood Pressure Mean Pulse Ox Oxygen Delivery Method Room Air Weight Weight: 129 lb Body Mass Index (BMI) 19.5 Physical Exam Const alert and oriented x3 Constitutional Narrative: Anxious General Appearance: cooperative Resp normal respiratory effort External Female Exam: external swelling Recto-Vaginal: other Posterior vaginal opening is probed gently with culture swabs and cultures of a greenish-brown discharge are obtained for micro Results Lab / Micro Data 10/28/23 11:41 10/28/23 11:41 Labs: Laboratory Results - last 24 hr 10/28/23 11:25: Urine Color Yellow, Urine Clarity Clear, Urine pH 6.0, Ur Specific [place] 1.005, Urine Protein 15 H, Urine Glucose (UA) Normal, Urine Ketones Negative, Urine Occult Blood 25 H, Urine Nitrite Negative, Urine Bilirubin Negative, Urine Urobilinogen Normal, Ur Leukocyte Esterase 500 H, Urine RBC 0 SEEN, Urine WBC 5-10 SEEN, Ur Squamous Epith Cells 0-5 SEEN, Urine Bacteria RARE, Urine Mucus 0 SEEN 10/28/23 11:41: WBC 22.0 H, RBC 3.63 L, Hgb 11.4 L, Hct 34.9 L, MCV 96.1, MCH 31.4, MCHC 32.7, RDW Std Deviation 42.5, RDW Coeff of Colten 12.1, Plt Count 247, MPV 9.7, Immature Gran % (Auto) 1.200 H, Neut % (Auto) 83.8 H, Lymph % (Auto) 6.5 L, [place] % (Auto) 7.5, Eos % (Auto) 0.5, Baso % (Auto) 0.5, Absolute Neuts (auto) 18.4 H, Absolute Lymphs (auto) 1.43, Nucleated RBC % 0, Diff Path Review January, Sodium 142, Potassium 3.4 L, Chloride 112 H, Carbon Dioxide 25.0, Anion Gap 5, BUN 21 H, Creatinine 0.80, Estim Creat Clear Calc 65.78, Est GFR (MDRD) Af Amer 96, Est GFR (MDRD) Non-Af 79, BUN/Creatinine Ratio 26.4 H, Glucose 96, Calcium 9.1 10/28/23 12:04: Lactic Acid 0.9 Micro: Microbiology 10/28/23 11:31 Urine, Clean Catch Chlamydia trachomatis (PCR) - Final 10/28/23 11:31 Urine, Clean Catch Neisseria gonorrhoeae (PCR) - Final Imaging Radiology Impression Abdomen/Pelvis CT 10/28/23 11:19 IMPRESSION: Small perianal/perineal abscess with edematous appearance of the adjacent lower vagina and perineum, raising the possibility of fistula. 3 mm nonobstructing right renal calculus. Electronically Signed: Courtney Gutierrez MD at 12:55 EST , Assessment & Plan Assessment/Plan (1) Perineal abscess: PLAN: Patient is a 58-year-old female who is 9 days status post excisional hemorrhoidectomy and presents with new vaginal drainage, low-grade fevers, and CT evidence of possible rectovaginal fistula. Given patient's significant discomfort exam was deferred, but I did obtain cultures of patient's discharge. She has been started on empiric antimicrobials with IV Zosyn while we await these cultures. (Additional testing was done for STIs in the emergency room). It is my suspicion that patient was developing an abscess of the perineum that has at least partially spontaneously drained via her vagina. I will keep her restricted to a clear liquid diet for now in the event that her clinical course dictates need for exam under anesthesia/further intervention. Patient is appreciative of the care and the explanations for her treatment course of date. Dr. Martinez has been updated on these recent events and will assume care of patient tomorrow. Charges/Coding Visit Charges Inpatient E&M: 03249 Init Hosp L2
--- NOTE | 2023-10-28 17:50 | NURSING ---
talked with Director Of Education And Training Valente regarding ER staff placing Admit order after discussed pt's request for diet and something for Headache with Dr. Mendoza.
[2023-10-28] MEDS: Acetaminophen 500 MG Tablet PO (20:00)
[2023-10-28] MEDS: oxyCODONE 5 MG Tablet PO (20:01)
[2023-10-28] MEDS: 0.9% Normal Saline (1000mL) 1,000 ML 75 ML IV (20:02)
[2023-10-28 20:17] VITALS: BP 99/62; PULSE 61; RESP 16; TEMP 36.8; O2SAT 98
[2023-10-28] MEDS: HYDROmorphone 0.5 MG/0.5 ML SYRINGE IV (22:08)
[2023-10-29] VITALS (13 sets, daily range): BP systolic 84–120; BP diastolic 51–73; PULSE 53–90; RESP 14–18; TEMP 36.3–37.3; O2SAT 92–98; BMI 19.5
[2023-10-29] MEDS: traZODone 50 MG Tablet PO (00:39)
[2023-10-29] MEDS: Acetaminophen 500 MG Tablet PO (04:15)
[2023-10-29] MEDS: Piperacil/Tazobactam 3.375 GM in 0.9% Normal Saline (50mL MB+) 50 ML IV ×3 (04:22→21:50)
[2023-10-29 05:21] LABS: Absolute Lymphocyte Count 0.96 X10^3/uL (0.83-4.51); Absolute Neutrophil Count 12.1 X10^3/uL (2.0-7.7); Basophil# 0.07 X10^3/uL; Basophil% 0.5 % (0-1); Eosinophil# 0.07 X10^3/uL; Eosinophils% 0.5 % (0-5); Hematocrit 33.1 % (37-47); Hemoglobin 10.5 g/dL (12.0-15.0); Lymphocyte # 0.96 X10^3/ul (0.83-4.51); Lymphocyte % 6.8 % (19-41); Mean Corp Hgb Conc 31.7 g/dL (32-36); Mean Corpuscular Hgb 31.3 pg (27.0-32.0); Mean Corpuscular Volume 98.5 fL (81-99); Mean Platelet Vol. 10.1 fl (6.2-12.0); Monocyte# 0.88 X10^3/uL; Monocyte% 6.2 % (0-10); NRBC Flagged by Analyzer 0 % (0-5); Neutrophil # 12.14 X10^3/uL (2.7-7.7); Neutrophil % 85.3 % (47-70); Platelet Count 226 K/mm3 (150-450); RBC Distribution Width CV 12.6 % (11.6-14.6); RBC Distribution Width SD 45.3 fl (35.1-43.9); Red Blood Count 3.36 M/mm3 (4.2-5.4); White Blood Count 14.2 K/mm3 (4.4-11.0)
[2023-10-29 05:37] LABS: Anion Gap 3 (5-15); BUN 20 mg/dL (7-18); BUN/Creat Ratio 26.9 RATIO (10-20); Calcium,Total 8.3 mg/dL (8.5-10.1); Chloride 114 mmol/L (98-107); Creatinine, Serum 0.74 mg/dL (0.55-1.02); EST Glomerular Filtration Rate 85 mL/min (>60); Est Glom Filt Rate - Afr Amer 103 mL/min (>60); Estimated Creatinine Clearance 77.48 ml/min; Glucose 121 mg/dL (74-106); Potassium 3.7 mmol/L (3.5-5.1); Sodium Level 142 mmol/L (136-145)
--- NOTE | 2023-10-29 07:21 | PN.SURG_ITS ---
Subjective Subjective Patient states pressure is better after been draining but still quite tender. Objective Data Objective Data Vital Signs: Vital Signs Temp Pulse Resp BP Pulse Ox O2 Del Method 97.9 F 61 16 99/66 97 Room Air 10/29/23 04:28 10/29/23 04:28 10/29/23 04:28 10/29/23 04:28 10/29/23 04:28 10/29/23 04:28 Oxygen Delivery Method Room Air Weight: 129 lb Body Mass Index (BMI) 19.5 Intake & Output: Intake and Output for Last 24 Hours 10/27/23 10/28/23 10/29/23 23:59 23:59 23:59 Intake Total 2049 50 / 50 Balance 2049 50 / 50 Lab / Micro Data 10/29/23 04:30 10/29/23 04:30 Labs: Laboratory Results - last 24 hr 10/28/23 11:25: Urine Color Yellow, Urine Clarity Clear, Urine pH 6.0, Ur Specific [place] 1.005, Urine Protein 15 H, Urine Glucose (UA) Normal, Urine Ketones Negative, Urine Occult Blood 25 H, Urine Nitrite Negative, Urine Bilirubin Negative, Urine Urobilinogen Normal, Ur Leukocyte Esterase 500 H, Urine RBC 0 SEEN, Urine WBC 5-10 SEEN, Ur Squamous Epith Cells 0-5 SEEN, Urine Bacteria RARE, Urine Mucus 0 SEEN 10/28/23 11:41: WBC 22.0 H, RBC 3.63 L, Hgb 11.4 L, Hct 34.9 L, MCV 96.1, MCH 31.4, MCHC 32.7, RDW Std Deviation 42.5, RDW Coeff of Colten 12.1, Plt Count 247, MPV 9.7, Immature Gran % (Auto) 1.200 H, Neut % (Auto) 83.8 H, Lymph % (Auto) 6.5 L, [place] % (Auto) 7.5, Eos % (Auto) 0.5, Baso % (Auto) 0.5, Absolute Neuts (auto) 18.4 H, Absolute Lymphs (auto) 1.43, Nucleated RBC % 0, Diff Path Review January, Sodium 142, Potassium 3.4 L, Chloride 112 H, Carbon Dioxide 25.0, Anion Gap 5, BUN 21 H, Creatinine 0.80, Estim Creat Clear Calc 65.78, Est GFR (MDRD) Af Amer 96, Est GFR (MDRD) Non-Af 79, BUN/Creatinine Ratio 26.4 H, Glucose 96, Calcium 9.1 10/28/23 12:04: Lactic Acid 0.9 10/29/23 04:30: WBC 14.2 H, RBC 3.36 L, Hgb 10.5 L, Hct 33.1 L, MCV 98.5, MCH 31.3, MCHC 31.7 L, RDW Std Deviation 45.3 H, RDW Coeff of Colten 12.6, Plt Count 226, MPV 10.1, Immature Gran % (Auto) 0.700, Neut % (Auto) 85.3 H, Lymph % (Auto) 6.8 L, [place] % (Auto) 6.2, Eos % (Auto) 0.5, Baso % (Auto) 0.5, Absolute Neuts (auto) 12.1 H, Absolute Lymphs (auto) 0.96, Nucleated RBC % 0, Sodium 142, Potassium 3.7, Chloride 114 H, Carbon Dioxide 25.0, Anion Gap 3 L, BUN 20 H, Creatinine 0.74, Estim Creat Clear Calc 77.48, Est GFR (MDRD) Af Amer 103, Est GFR (MDRD) Non-Af 85, BUN/Creatinine Ratio 26.9 H, Glucose 121 H, Calcium 8.3 L Micro: Microbiology 10/28/23 11:31 Urine, Clean Catch Chlamydia trachomatis (PCR) - Final 10/28/23 11:31 Urine, Clean Catch Neisseria gonorrhoeae (PCR) - Final Radiography Diagnostic Testing: Radiology Impression Abdomen/Pelvis CT 10/28/23 11:19 IMPRESSION: Small perianal/perineal abscess with edematous appearance of the adjacent lower vagina and perineum, raising the possibility of fistula. 3 mm nonobstructing right renal calculus. Electronically Signed: Courtney Gutierrez MD at 12:55 EST , Physical Exam Const oriented x3 Resp normal respiratory effort Cardio regular rate GI soft to palpation GI Narrative: ERIKA patient's hemorrhoidectomy external site appears to be healing well. Narrative: Patient vulva that is swollen, patient is tender with some greenish drainage in the vagina Assessment & Plan Assessment/Plan (1) Perineal abscess: PLAN: Will plan for exam and anesthesia, possible incision and drainage. Risk benefits were discussed with patient. All patient's questions were answered. Continue IV Zosyn patient's leukocytosis down to 14 from 22. Brittaney Martinez M.D. Pager: [phone] [facility] [address] [place] [address], [address] [place] [address] Office: [phone]
[2023-10-29] MEDS: Ondansetron 4 MG/2 ML Vial IV (08:39)
[2023-10-29] MEDS: 0.9% Saline Lock 10 ML Syringe IV (08:39)
--- NOTE | 2023-10-29 08:48 | NURSING ---
Pt reported she had an emesis and is requesting zofran. Nurse into administer zofran and male visitor in room. Nurse enquires who is this and he states he is her . Per yesterday conversation pt clearly stated to this nurse she does not want her to know any of her health information as to this hospitalization. Hence, consent not signed at this time in the presence of her huband.
--- NOTE | 2023-10-29 10:39 | CASEMGMT ---
FELICIANO AYALA Assessment Face to Face with patient for initial transition planning/care coordination assessment. FELICIANO AYALA introduced self and role at [facility], pt voices understanding. Pt is A&Ox4 and is resting comfortably in bed and is calm. Care providers, pharmacy, and demographics verified. Admitting dx: Perineal Abscess LACE Strata: 2 PCP: [place] Specialists: Denies Preferred Pharmacy: [facility] Insurance: ANTHEM Prescription Benefit: Yes LNOK: JayashreeRajesh VAIL Living Arrangements: Pt lives with her daughter and current who she states they are in the middle of .Pt states it is a 2 story home with a BM and handrails with 3 steps to enter wit HR and no issues. ADLs/IADLs: Ind Transportation: Drives. Pt daughter will be her ride home DME: Walk in shower. Denies all other DME uses or needs. HHC/SNF: Denies history or needs Pt?s goal: Home Plan: Pt has surgery today scheduled for 1100. At this time, pt denies any home going needs. Will follow after surgery for any potential needs. Jane Conde RN, CM
[2023-10-29] MEDS: 0.9% Normal Saline (1000mL) 1,000 ML 15 ML IV (13:19)
[2023-10-29] MEDS: Bupivacaine Mpf 0.5% 30 ML VIAL (14:25)
--- NOTE | 2023-10-29 14:29 | OP.PCM_ITS ---
Report of Operation Date of Procedure: 10/29/23 Pre-Operative Diagnosis: Perineal abscess Post-Operative Diagnosis: Same Surgery/Procedure Performed:: Exam under anesthesia, incision and drainage of perineal abscess Surgeon: Brittaney Martinez farm loan representative: Felisha Brenner Type of Anesthesia: MAC/Supplemental Anesthesiologist: Louis Forbes Special Medications: Patient is on Zosyn 3.375 g IV every 8 hours for perineal abscess on the floor Specimen's removed: cx of perineal abscess fluid Estimated Blood Loss (mL): < 10 cc Description of Procedure: Patient was brought to operating placed spinal operating table. A timeout was completed verifying patient, procedure, site, positioning, special, prior to being procedure. MAC anesthesia was induced. Patient was placed in the frog- leg position. Exam of the vagina was done and revealed a hole in the posterior wall with green drainage. This area is prepped and draped in usual sterile fashion. Culture was obtained through the hole in the posterior wall of the vagina. Hydroperoxide was placed through this hole in the posterior wall of the vagina while looking in the rectum with retractor. No obvious bubbles were seen. Area of previous hemorrhoidectomy appears to be healing?no greenish drainage seen from this area as well. Incision was made at the perineum just to the right after local anesthesia of 0.5% Marcaine was instilled in this area. Hemostat was used to connect to the peritoneal cavity. Cavity was irrigated with saline. Quarter inch iodoform gauze was placed in this tract from the peritoneum. Did not attempt to close the posterior vaginal wall. 4 x 4 and ABD was placed over the site with mesh panties. Patient tolerated procedure well was taken to the postanesthesia care unit in stable condition.
[2023-10-29 14:31] LABS: Pathologist Review Reviewed
[2023-10-29] MEDS: 0.9% Normal Saline (1000mL) 1,000 ML 75 ML IV (15:24)
[2023-10-30] MEDS: Ibuprofen 600 MG Tablet PO ×2 (02:36→14:38)
[2023-10-30] MEDS: oxyCODONE 5 MG Tablet PO ×3 (02:37→20:37)
[2023-10-30] MEDS: traZODone 50 MG Tablet PO (02:37)
[2023-10-30 02:39] VITALS: BP 99/58; PULSE 60; RESP 16; TEMP 37; O2SAT 96
[2023-10-30] MEDS: Piperacil/Tazobactam 3.375 GM in 0.9% Normal Saline (50mL MB+) 50 ML IV ×3 (05:37→21:18)
--- NOTE | 2023-10-30 08:07 | PN.SURG_ITS ---
Subjective Subjective Patient evaluated resting comfortably in bed. Patient is s/p Exam under anesthesia, incision and drainage of perineal abscess by Dr. Martinez on 10/29/23. She notes pain is improved. She notes itching in the general region of the procedure. She notes she has been changing the dressing herself throughout the night without any concerns. She notes minimal greenish drainage noted. She has not had a bowel movement in 3 days and is concerned for her first BM. Objective Data Objective Data Vital Signs: Vital Signs Temp Pulse Resp BP Pulse Ox O2 Del Method O2 Flow Rate 98.6 F 60 16 99/58 L 96 Room Air 2 10/30/23 02:39 10/30/23 02:39 10/30/23 02:39 10/30/23 02:39 10/30/23 02:39 10/30/23 02:39 10/29/23 15:48 Oxygen Flow Rate (L/min) 2 Oxygen Delivery Method Room Air Weight: 129 lb Body Mass Index (BMI) 19.5 Intake & Output: Intake and Output for Last 24 Hours 10/28/23 10/29/23 10/30/23 23:59 23:59 23:59 Intake Total 2049 2131.25 / 2431.25 750 / 750 Balance 2049 2131.25 / 2431.25 750 / 750 Lab / Micro Data 10/29/23 04:30 10/29/23 04:30 Labs: Laboratory Results - last 24 hr 10/28/23 11:41: Diff Path Review Reviewed Micro: Microbiology 10/28/23 18:48 Genital vaginal Gram Stain - Final 10/28/23 11:25 Urine, Midstream Urine Culture - Preliminary GNR lactose city driver 10/28/23 11:31 Urine, Clean Catch Chlamydia trachomatis (PCR) - Final 10/28/23 11:31 Urine, Clean Catch Neisseria gonorrhoeae (PCR) - Final Physical Exam GI GI Narrative: Rectum- nicely healing hemorrhoidectomy region. Perineal cavity had packing within it and moderate amount of serous drainage noted. Assessment & Plan Assessment/Plan (1) Perineal abscess: PLAN: Recommend changing packing twice daily until cavity is no longer able to be packed Continue to use a teresita-pad for drainage Hopeful discharge later today Patient had asked for sleeping medication, which will need to come from her PCP Cultures are pending. Will check on gram stain Plan to send patient home on antibiotics Charges/Coding Visit Charges Inpatient E&M: 17238 Subs Hosp L1 (post-op; no charge)
[2023-10-30 08:57] VITALS: BP 87/53; PULSE 65; RESP 18; TEMP 36.9; O2SAT 96
[2023-10-30] MEDS: Escitalopram Oxalate 20 MG Tablet PO (09:08)
[2023-10-30] MEDS: Docusate Sodium 100 MG Capsule PO (09:10)
[2023-10-30 10:25] LABS: Absolute Lymphocyte Count 1.55 X10^3/uL (0.83-4.51); Absolute Neutrophil Count 10.8 X10^3/uL (2.0-7.7); Basophil# 0.03 X10^3/uL; Basophil% 0.2 % (0-1); Eosinophil# 0.02 X10^3/uL; Eosinophils% 0.1 % (0-5); Hematocrit 31.9 % (37-47); Hemoglobin 10.6 g/dL (12.0-15.0); Lymphocyte # 1.55 X10^3/ul (0.83-4.51); Lymphocyte % 11.5 % (19-41); Mean Corp Hgb Conc 33.2 g/dL (32-36); Mean Corpuscular Hgb 32.3 pg (27.0-32.0); Mean Corpuscular Volume 97.3 fL (81-99); Mean Platelet Vol. 9.8 fl (6.2-12.0); Monocyte# 0.89 X10^3/uL; Monocyte% 6.6 % (0-10); NRBC Flagged by Analyzer 0 % (0-5); Neutrophil # 10.75 X10^3/uL (2.7-7.7); Neutrophil % 80.3 % (47-70); Platelet Count 248 K/mm3 (150-450); RBC Distribution Width CV 12.7 % (11.6-14.6); RBC Distribution Width SD 45.3 fl (35.1-43.9); Red Blood Count 3.28 M/mm3 (4.2-5.4); White Blood Count 13.4 K/mm3 (4.4-11.0)
--- NOTE | 2023-10-30 11:11 | DS.PCM_ITS ---
Providers Date of Admission: 10/28/23 Primary Care Physician: Dr. Hanna Nuñez MD Consultations 10/29/23 15:06 Consult: Onc/Wound/post anesthesia care unit nurse Routine Comment: Reason for Consult:: wound care-perineal abscess s/p I & D Reason For Visit: PERINEAL ABCESSS Diagnosis Discharge Diagnosis (1) Perineal abscess: Status: Acute Code(s): L02.215 - Cutaneous abscess of perineum Plan: Recommend changing packing twice daily until cavity is no longer able to be packed Continue to use a teresita-pad for drainage Hopeful discharge later today Patient had asked for sleeping medication, which will need to come from her PCP Cultures are pending. Will check on gram stain Plan to send patient home on antibiotics Medications at Discharge Home Medications buspirone 5 mg tablet 5 mg PO BID PRN anxiety #60 tabs 11/22/22 escitalopram oxalate 20 mg tablet 20 mg PO DAILY #90 tabs 12/25/22 trazodone 50 mg tablet 50 mg PO QHS PRN insomnia #60 tabs 06/22/23 meloxicam 15 mg tablet 15 mg PO DAILY PRN pain 08/15/23 estradiol 2 mg tablet 2 mg PO DAILY #90 tabs 09/04/23 indomethacin 25 mg capsule 25 mg PO ONCE PRN headache #90 caps 10/12/23 topiramate 25 mg tablet (Topamax) 25 mg PO DAILY 10/28/23 metronidazole 500 mg tablet 500 mg PO TID 10 days #30 tabs 10/30/23 oxycodone 5 mg tablet 5 mg PO Q6H PRN PRN Pain Score 6-10 2 days #6 tabs 10/30/23 sulfamethoxazole 800 mg-trimethoprim 160 mg tablet (Bactrim DS) 1 tab PO BID 7 days #14 tabs 10/30/23 Hospital Course Operations - (Exam under anesthesia, incision and drainage of perineal abscess) Weight / BMI Weight Weight: 129 lb Body Mass Index (BMI) 19.5 ABG / Lab / Microbiology Data 10/30/23 10:10 10/29/23 04:30 Laboratory: Laboratory Results - last 24 hr 10/28/23 11:41: Diff Path Review Reviewed 10/30/23 10:10: WBC 13.4 H, RBC 3.28 L, Hgb 10.6 L, Hct 31.9 L, MCV 97.3, MCH 32.3 H, MCHC 33.2, RDW Std Deviation 45.3 H, RDW Coeff of Colten 12.7, Plt Count 248, MPV 9.8, Immature Gran % (Auto) 1.300 H, Neut % (Auto) 80.3 H, Lymph % (Auto) 11.5 L, [place] % (Auto) 6.6, Eos % (Auto) 0.1, Baso % (Auto) 0.2, Absolute Neuts (auto) 10.8 H, Absolute Lymphs (auto) 1.55, Nucleated RBC % 0 Microbiology: Microbiology 10/29/23 Unknown Wound Abcess - Aerobic & Anaerobic Swabs Gram Stain - Final 10/29/23 Unknown Wound Abcess - Aerobic & Anaerobic Swabs Wound Culture - Preliminary Gram positive organism 10/28/23 18:48 Genital vaginal Gram Stain - Final 10/28/23 18:48 Genital vaginal Wound Culture - Preliminary GPC Poss Enterococcus sp G. vaginalis (Presumptive) 10/28/23 11:25 Urine, Midstream Urine Culture - Final Escherichia coli 10/28/23 11:31 Urine, Clean Catch Chlamydia trachomatis (PCR) - Final 10/28/23 11:31 Urine, Clean Catch Neisseria gonorrhoeae (PCR) - Final Discharge Plan Admission Admit Date/Time: 10/28/23 14:02 Primary Reason for Your Visit: Perineal abscess Attending Provider: Melvin Mendoza Primary Care Provider: Hanna Nuñez Instructions Additional Instructions / Restrictions: Change the packing twice daily Recommend icing the area 20 minutes on and 20 minutes off You will not be able to do sitz bathes with the packing in place You will be sent home on 2 separate antibiotics, Bactrim and Flagyl I recommend taking Miralax once or twice daily depending on your bowel history, if your more constipated, I would take Miralax twice a day You are already scheduled to have a follow-up with Dr. Martinez on Sunday, 11/01 at 9:10 Discharge Orders/Prescriptions Prescriptions: New oxycodone 5 mg Tablet 5 mg PO Q6H PRN PRN (Reason: Pain Score 6-10) 2 Days Qty: 6 0RF metronidazole 500 mg tablet 500 mg PO TID 10 Days Qty: 30 0RF sulfamethoxazole-trimethoprim [Bactrim DS] 800-160 mg tablet 1 tab PO BID 7 Days Qty: 14 0RF Continued escitalopram oxalate 20 mg tablet 20 mg PO DAILY Qty: 90 3RF buspirone 5 mg tablet 5 mg PO BID PRN (Reason: anxiety) Qty: 60 3RF trazodone 50 mg tablet 50 mg PO QHS PRN (Reason: insomnia) Qty: 60 2RF meloxicam 15 mg tablet 15 mg PO DAILY PRN (Reason: pain) topiramate [Topamax] 25 mg tablet 25 mg PO DAILY estradiol 2 mg tablet 2 mg PO DAILY Qty: 90 3RF indomethacin 25 mg capsule 25 mg PO ONCE PRN (Reason: headache) Qty: 90 0RF Rx Instructions: administer with food or milk Discontinued hydrocodone-acetaminophen 5-325 mg tablet 1 tab PO Q6H PRN (Reason: pain) 3 Days Qty: 20 0RF Referrals / Follow Up: Hanna Nuñez MD [Primary Care Provider] - Brittaney Martinez MD [Med Staff - Active Staff] - 11/02/23 9:10 am Disposition Disposition (needs filled in before D/C Order can be placed): Home, Self Care
[2023-10-30] MEDS: Polyethylene Glycol 3350 17 GM PACKET PO (12:38)
[2023-10-30 14:33] VITALS: BP 103/65; PULSE 56; RESP 18; TEMP 37; O2SAT 96
[2023-10-30 21:19] VITALS: BP 113/73; PULSE 50; RESP 16; TEMP 36.8; O2SAT 97
[2023-10-31 03:00] VITALS: BP 105/64; PULSE 50; RESP 16; TEMP 36.6; O2SAT 96
[2023-10-31] MEDS: Piperacil/Tazobactam 3.375 GM in 0.9% Normal Saline (50mL MB+) 50 ML IV (05:22)
[2023-10-31] MEDS: Ibuprofen 600 MG Tablet PO (05:26)
[2023-10-31 06:29] LABS: Absolute Lymphocyte Count 2.94 X10^3/uL (0.83-4.51); Absolute Neutrophil Count 6.8 X10^3/uL (2.0-7.7); Basophil# 0.05 X10^3/uL; Basophil% 0.4 % (0-1); Eosinophil# 0.14 X10^3/uL; Eosinophils% 1.2 % (0-5); Hematocrit 33.7 % (37-47); Hemoglobin 10.8 g/dL (12.0-15.0); Lymphocyte # 2.94 X10^3/ul (0.83-4.51); Lymphocyte % 26.2 % (19-41); Mean Corpuscular Hgb 31.1 pg (27.0-32.0); Mean Corpuscular Volume 97.1 fL (81-99); Mean Platelet Vol. 9.8 fl (6.2-12.0); Monocyte# 0.93 X10^3/uL; Monocyte% 8.3 % (0-10); NRBC Flagged by Analyzer 0 % (0-5); Neutrophil # 6.83 X10^3/uL (2.7-7.7); Neutrophil % 60.9 % (47-70); POSITIVE MORPHOLOGY YES; Platelet Count 263 K/mm3 (150-450); RBC Distribution Width CV 12.8 % (11.6-14.6); RBC Distribution Width SD 46.1 fl (35.1-43.9); Red Blood Count 3.47 M/mm3 (4.2-5.4); White Blood Count 11.2 K/mm3 (4.4-11.0)
[2023-10-31 06:40] LABS: Differential Indicated SCAN CRITERIA MET
--- NOTE | 2023-10-31 07:13 | PCM.PN.SRG ---
Subjective Subjective Patient states pain has improved, only having some serosanguineous drainage currently. Objective Data Objective Data Vital Signs: Vital Signs Temp Pulse Resp BP Pulse Ox O2 Del Method O2 Flow Rate 98 F 50 L 16 105/64 96 Room Air 2 10/31/23 03:00 10/31/23 03:00 10/31/23 03:00 10/31/23 03:00 10/31/23 03:00 10/31/23 03:00 10/29/23 15:48 Oxygen Flow Rate (L/min) 2 Oxygen Delivery Method Room Air Weight: 129 lb Body Mass Index (BMI) 19.5 Intake & Output: Intake and Output for Last 24 Hours 10/29/23 10/30/23 10/31/23 23:59 23:59 23:59 Intake Total 2131.25 / 2431.25 2029 50 / 50 Balance 2131.25 / 2431.25 2029 50 50 Lab / Micro Data 10/31/23 06:13 10/29/23 04:30 Labs: Laboratory Results - last 24 hr 10/30/23 10:10: WBC 13.4 H, RBC 3.28 L, Hgb 10.6 L, Hct 31.9 L, MCV 97.3, MCH 32.3 H, MCHC 33.2, RDW Std Deviation 45.3 H, RDW Coeff of Colten 12.7, Plt Count 248, MPV 9.8, Immature Gran % (Auto) 1.300 H, Neut % (Auto) 80.3 H, Lymph % (Auto) 11.5 L, [place] % (Auto) 6.6, Eos % (Auto) 0.1, Baso % (Auto) 0.2, Absolute Neuts (auto) 10.8 H, Absolute Lymphs (auto) 1.55, Nucleated RBC % 0 10/31/23 06:13: WBC 11.2 H, RBC 3.47 L, Hgb 10.8 L, Hct 33.7 L, MCV 97.1, MCH 31.1, MCHC 32.0, RDW Std Deviation 46.1 H, RDW Coeff of Colten 12.8, Plt Count 263, MPV 9.8, Immature Gran % (Auto) 3.000 H, Neut % (Auto) 60.9, Lymph % (Auto) 26.2, [place] % (Auto) 8.3, Eos % (Auto) 1.2, Baso % (Auto) 0.4, Absolute Neuts (auto) 6.8, Absolute Lymphs (auto) 2.94, Nucleated RBC % 0 Micro: Microbiology 10/29/23 Unknown Wound Abcess - Aerobic & Anaerobic Swabs Gram Stain - Final 10/29/23 Unknown Wound Abcess - Aerobic & Anaerobic Swabs Wound Culture - Preliminary Gram positive organism 10/28/23 18:48 Genital vaginal Gram Stain - Final 10/28/23 18:48 Genital vaginal Wound Culture - Preliminary GPC Poss Enterococcus sp G. vaginalis (Presumptive) 10/28/23 11:25 Urine, Midstream Urine Culture - Final Escherichia coli 10/28/23 11:31 Urine, Clean Catch Chlamydia trachomatis (PCR) - Final 10/28/23 11:31 Urine, Clean Catch Neisseria gonorrhoeae (PCR) - Final Physical Exam Const oriented x3 and no apparent distress Resp normal respiratory effort Cardio regular rate Narrative: Just to the right of the perineum packed with iodoform, serosanguineous drainage?small amount on pad. Swelling of the vulva improving Assessment & Plan Assessment/Plan (1) Perineal abscess: (2) UTI (urinary tract infection): PLAN: Plan Will plan to change the packing today and have patient remove it tomorrow. Will DC home with Bactrim and Flagyl and continue to follow cultures?in the OR we did not see a fistula to the rectum. Patient is a follow-up on Sunday. Patient is agreeable plan. Brittaney Martinez M.D. Pager: [phone] [facility] [address] [place] [address], Outpatient [facility], [address] [place] [address] Office: [phone]
[2023-10-31 07:39] VITALS: BP 120/73; PULSE 50; RESP 18; TEMP 36.6; O2SAT 97
[2023-10-31 07:48] LABS: Differential Comment SCANNED
[2023-10-31] MEDS: oxyCODONE 5 MG Tablet PO (07:53)
[2023-10-31] MEDS: Docusate Sodium 100 MG Capsule PO (07:53)
[2023-10-31] MEDS: Escitalopram Oxalate 20 MG Tablet PO (07:53)
--- NOTE | 2023-10-31 11:18 | PCM.DC.SUM ---
Providers Date of Admission: 10/28/23 Primary Care Physician: Dr. Hanna uNñez MD Consultations 10/29/23 15:06 Consult: Onc/Wound/geodetic technician Routine Comment: Reason for Consult:: wound care-perineal abscess s/p I & D Reason For Visit: PERINEAL ABCESSS Diagnosis Discharge Diagnosis (1) Perineal abscess: Status: Acute Code(s): L02.215 - Cutaneous abscess of perineum Plan: Recommend changing packing twice daily until cavity is no longer able to be packed Continue to use a teresita-pad for drainage Hopeful discharge later today Patient had asked for sleeping medication, which will need to come from her PCP Cultures are pending. Will check on gram stain Plan to send patient home on antibiotics Medications at Discharge Home Medications buspirone 5 mg tablet 5 mg PO BID PRN anxiety #60 tabs 11/22/22 escitalopram oxalate 20 mg tablet 20 mg PO DAILY #90 tabs 12/25/22 trazodone 50 mg tablet 50 mg PO QHS PRN insomnia #60 tabs 06/22/23 meloxicam 15 mg tablet 15 mg PO DAILY PRN pain 08/15/23 estradiol 2 mg tablet 2 mg PO DAILY #90 tabs 09/04/23 indomethacin 25 mg capsule 25 mg PO ONCE PRN headache #90 caps 10/12/23 topiramate 25 mg tablet (Topamax) 25 mg PO DAILY 10/28/23 metronidazole 500 mg tablet 500 mg PO TID 10 days #30 tabs 10/30/23 oxycodone 5 mg tablet 5 mg PO Q6H PRN PRN Pain Score 6-10 2 days #6 tabs 10/30/23 sulfamethoxazole 800 mg-trimethoprim 160 mg tablet (Bactrim DS) 1 tab PO BID 7 days #14 tabs 10/30/23 Hospital Course Operations - (Exam under anesthesia, incision and drainage of perineal abscess) Summary of Care Provided Minutes Spent on Discharge: 30 Hospital Course: Patient is a 58 y/o F who presented with increased pain, swelling and greenish drainage s/p surgical hemorrhoidectomy on 10/[address] Martinez. Patient was found to have an abscess on CT scan within the perineal region. Dr. Martinez performed an exam under anesthesia and incision and drainage of perineal abscess on 10/29/23. Patient tolerated the procedure well. She was on IV antibiotics which decreased her WBC from 22 down to 11. Patient has been having packing changes twice per day while in the hospital. Microbiology has returned as Strep gallolyticus pas, G. vaginalis, E. Coli, and coag negative Staph form the vaginal culture. Her urine culture returned as E. Coli. She was negative for chlamydia and gonorrheae. Upon discharge, patient was tolerating the packing change better. She has been instructed to remove the packing entirely tomorrow. She will be discharged to home on Bactrim and Flagyl x 10 days. She will follow-up with Dr. Martinez on Sunday, 11/01. Patient has met discharge criteria at this time. Weight / BMI Weight Weight: 129 lb Body Mass Index (BMI) 19.5 ABG / Lab / Microbiology Data 10/31/23 06:13 10/29/23 04:30 Laboratory: Laboratory Results - last 24 hr 10/31/23 06:13: WBC 11.2 H, RBC 3.47 L, Hgb 10.8 L, Hct 33.7 L, MCV 97.1, MCH 31.1, MCHC 32.0, RDW Std Deviation 46.1 H, RDW Coeff of Colten 12.8, Plt Count 263, MPV 9.8, Immature Gran % (Auto) 3.000 H, Neut % (Auto) 60.9, Lymph % (Auto) 26.2, [place] % (Auto) 8.3, Eos % (Auto) 1.2, Baso % (Auto) 0.4, Absolute Neuts (auto) 6.8, Absolute Lymphs (auto) 2.94, Nucleated RBC % 0, Differential Comment SCANNED Microbiology: Microbiology 10/28/23 18:48 Genital vaginal Gram Stain - Final 10/28/23 18:48 Genital vaginal Wound Culture - Preliminary Streptococcus gallolyticus pas G. vaginalis (Presumptive) Presumptive E. coli Coag Negative Staph 10/29/23 Unknown Wound Abcess - Aerobic & Anaerobic Swabs Gram Stain - Final 10/29/23 Unknown Wound Abcess - Aerobic & Anaerobic Swabs Wound Culture - Preliminary Gram positive organism 10/29/23 Unknown Wound Abcess - Aerobic & Anaerobic Swabs Anaerobic Culture - Preliminary Checking for anaerobes, further studies to follow. 10/28/23 11:25 Urine, Midstream Urine Culture - Final Escherichia coli 10/28/23 11:31 Urine, Clean Catch Chlamydia trachomatis (PCR) - Final 10/28/23 11:31 Urine, Clean Catch Neisseria gonorrhoeae (PCR) - Final D/C Instructions Discharge Diet: Light diet - advance as tolerated Lifting Restrictions: 10 pounds Call your doctor if your incision/area has: Increased Pain/ Swelling, Foul Smelling Discharge and Swelling at the incision site Call your doctor if you observe: Fever of 101 or Higher Remove Dressing in: 1 day (Remove packing and place a pad in undergarments to catch the drainage) Cleanse incision/area with: Soap & Water Additional Dressing/Incision Instructions: Change pad daily or more often depending on amount of drainage Please Follow Up With: Brittaney Martinez MD When: Follow-up 11/01 at 9:10 AM Meaningful Use Info Meaningful Use Diagnoses (Choose all that apply): None applicable Discharge Plan Admission Admit Date/Time: 10/28/23 14:02 Primary Reason for Your Visit: Perineal abscess Attending Provider: Melvin Mendoza Primary Care Provider: Hanna Nuñez Instructions Additional Instructions / Restrictions: Remove packing entirely tomorrow and place a pad in your undergarments to catch any drainage Recommend icing the area 20 minutes on and 20 minutes off Recommend performing sitz bathes twice daily You will be sent home on 2 separate antibiotics, Bactrim and Flagyl I recommend taking Miralax once or twice daily depending on your bowel history, if your more constipated, I would take Miralax twice a day You are already scheduled to have a follow-up with Dr. Martinez on 11/01 at 9:10 Discharge Orders/Prescriptions Prescriptions: New oxycodone 5 mg Tablet 5 mg PO Q6H PRN PRN (Reason: Pain Score 6-10) 2 Days Qty: 6 0RF metronidazole 500 mg tablet 500 mg PO TID 10 Days Qty: 30 0RF sulfamethoxazole-trimethoprim [Bactrim DS] 800-160 mg tablet 1 tab PO BID 7 Days Qty: 14 0RF Continued escitalopram oxalate 20 mg tablet 20 mg PO DAILY Qty: 90 3RF buspirone 5 mg tablet 5 mg PO BID PRN (Reason: anxiety) Qty: 60 3RF trazodone 50 mg tablet 50 mg PO QHS PRN (Reason: insomnia) Qty: 60 2RF meloxicam 15 mg tablet 15 mg PO DAILY PRN (Reason: pain) topiramate [Topamax] 25 mg tablet 25 mg PO DAILY estradiol 2 mg tablet 2 mg PO DAILY Qty: 90 3RF indomethacin 25 mg capsule 25 mg PO ONCE PRN (Reason: headache) Qty: 90 0RF Rx Instructions: administer with food or milk Discontinued hydrocodone-acetaminophen 5-325 mg tablet 1 tab PO Q6H PRN (Reason: pain) 3 Days Qty: 20 0RF Referrals / Follow Up: Hanna Nuñez MD [Primary Care Provider] - Brittaney Martinez MD [Med Staff - Active Staff] - 11/02/23 9:10 am Disposition Disposition (needs filled in before D/C Order can be placed): Home, Self Care Charges/Coding Visit Charges Inpatient E&M: 24832 Disch Hosp (No charge; post-op)
[2023-10-31 11:30] VITALS: BP 122/69; PULSE 46; RESP 18; TEMP 36.6; O2SAT 97
--- NOTE | 2023-10-31 11:57 | PHA.DC.MC.R ---
Pharmacy [facility] Pharmacy Service has performed discharge medication reconciliation and counseling for this patient. 1. METRONIDAZOLE 500MG PO TID X 10 DAYS 2. OXYCODONE 5MG PO Q6H PRN PAIN 6-10 3. BACTRIM DS 1T PO BID X 7 DAYS The patient's discharge medication list was reviewed for discrepancies and discrepancies were resolved. The patient was counseled on the following discharge medications and changes in medications for homegoing were reviewed. The Reason for Use, instructions for use, and potential side effects were reviewed for all new medications. The patient's questions regarding all of their medications were answered. The patient was able to verbally demonstrate an understanding of their discharge medications. Patient counseled by pharmacy services representative, Tyler. Medications at Discharge Home Medications buspirone 5 mg tablet 5 mg PO BID PRN anxiety #60 tabs 11/22/22 escitalopram oxalate 20 mg tablet 20 mg PO DAILY #90 tabs 12/25/22 trazodone 50 mg tablet 50 mg PO QHS PRN insomnia #60 tabs 06/22/23 meloxicam 15 mg tablet 15 mg PO DAILY PRN pain 08/15/23 estradiol 2 mg tablet 2 mg PO DAILY #90 tabs 09/04/23 indomethacin 25 mg capsule 25 mg PO ONCE PRN headache #90 caps 10/12/23 topiramate 25 mg tablet (Topamax) 25 mg PO DAILY 10/28/23 metronidazole 500 mg tablet 500 mg PO TID 10 days #30 tabs 10/30/23 oxycodone 5 mg tablet 5 mg PO Q6H PRN PRN Pain Score 6-10 2 days #6 tabs 10/30/23 sulfamethoxazole 800 mg-trimethoprim 160 mg tablet (Bactrim DS) 1 tab PO BID 7 days #14 tabs 10/30/23
--- NOTE | 2023-10-31 12:06 | CASEMGMT ---
FELICIANO CM to pt room at this time and the pt states that she still feels safe and comfortable DC home with no additional needs.
--- NOTE | 2023-10-31 12:30 | CASEMGMT ---
Social Work SW met with pt to verify advance directives. Pt has not completed a living will or health care POA. Pt agreeable to receiving information about this but is not interested in completing today. [facility] provided pt with an Advance Directive Rack Card and notified that pt can make an outpt appointment with [facility] if she wishes to complete. ELIZABETH Ahuja
== END 2023-10-31 13:04 | disposition home or self-care (01) | DRG 580 ==
LOC: ED 12:35 → MS3 14:10
PROVIDERS: Physician Assistant; Surgery; Admitting Provider Surgery; Emergency Provider Emergency Medicine; PCP Internal Medicine; Visit Provider Surgery
PROC: 0W9N0ZZ Drainage of Female Perineum, Open Approach (ICD-10-PCS; principal; 2023-10-29 10:45)
DX: L02.215 Cutaneous abscess of perineum (principal); N39.0 Urinary tract infection, site not specified; B95.4 Other streptococcus as the cause of diseases classified elsewhere; N90.89 Other specified noninflammatory disorders of vulva and perineum; B96.20 Unspecified Escherichia coli [E. coli] as the cause of diseases classified elsewhere; F41.1 Generalized anxiety disorder; Z79.899 Other long term (current) drug therapy; Z90.710 Acquired absence of both cervix and uterus
CPT/HCPCS: 36415; 74177; 80048; 81001; 83605; 85025; 87070; 87075; 87077; 87086; 87088; 87186; 87205; 87491; 87591; 99284; J7030; Q9967; A4216; J2405

== ENCOUNTER → 2024-02-13 | Outpatient (CLI) | payer BC, SELFPAY ==
[2024-02-13 17:01] LABS: Absolute Lymphocyte Count 1.88 X10^3/uL (0.83-4.51); Absolute Neutrophil Count 4.3 X10^3/uL (2.0-7.7); Basophil# 0.04 X10^3/uL; Basophil% 0.6 % (0-1); Eosinophil# 0.08 X10^3/uL; Eosinophils% 1.2 % (0-5); Hematocrit 39.7 % (37-47); Hemoglobin 12.6 g/dL (12.0-15.0); Lymphocyte # 1.88 X10^3/ul (0.83-4.51); Lymphocyte % 27.4 % (19-41); Mean Corp Hgb Conc 31.7 g/dL (32-36); Mean Corpuscular Hgb 31.7 pg (27.0-32.0); Mean Corpuscular Volume 99.7 fL (81-99); Monocyte# 0.57 X10^3/uL; Monocyte% 8.3 % (0-10); NRBC Flagged by Analyzer 0 % (0-5); Neutrophil # 4.25 X10^3/uL (2.7-7.7); Neutrophil % 62.1 % (47-70); Platelet Count 212 K/mm3 (150-450); RBC Distribution Width CV 11.9 % (11.6-14.6); RBC Distribution Width SD 43.8 fl (35.1-43.9); Red Blood Count 3.98 M/mm3 (4.2-5.4); White Blood Count 6.9 K/mm3 (4.4-11.0)
[2024-02-13 17:19] LABS: ALB/GLOB Ratio 1.1 RATIO (0.9-2.4); AST(SGOT) 17 U/L (15-37); Alanine Aminotransfer ALT/SGPT 26 U/L (13-56); Albumin, Serum 3.4 g/dL (3.2-5.0); Alkaline Phosphatase 58 U/L (45-117); Anion Gap 4 (5-15); BUN 27 mg/dL (7-18); BUN/Creat Ratio 29.7 RATIO (10-20); Calcium,Total 9.5 mg/dL (8.5-10.1); Chloride 111 mmol/L (98-107); Creatinine, Serum 0.91 mg/dL (0.55-1.02); EST Glomerular Filtration Rate 68 mL/min (>60); Est Glom Filt Rate - Afr Amer 82 mL/min (>60); Globulin 3.2 g/dL (2.2-4.2); Glucose 86 mg/dL (74-106); Potassium 4.1 mmol/L (3.5-5.1); Protein, Total 6.6 g/dL (6.4-8.2); Sodium Level 142 mmol/L (136-145)
== END | disposition home or self-care (01) ==
LOC: BIMLAB 14:53
PROVIDERS: PCP Internal Medicine; Visit Provider Internal Medicine
DX: F41.9 Anxiety disorder, unspecified (principal); F32.A Depression, unspecified
CPT/HCPCS: 36415; 80053; 85025

== ENCOUNTER → 2024-07-11 | Outpatient (CLI) | payer MEDICAID, SELFPAY ==
[2024-07-11 12:22] LABS: Absolute Lymphocyte Count 1.48 X10^3/uL (0.83-4.51); Absolute Neutrophil Count 3.1 X10^3/uL (2.0-7.7); Basophil# 0.03 X10^3/uL; Basophil% 0.6 % (0-1); Eosinophil# 0.03 X10^3/uL; Eosinophils% 0.6 % (0-5); Hematocrit 40.2 % (37-47); Hemoglobin 12.9 g/dL (12.0-15.0); Lymphocyte # 1.48 X10^3/ul (0.83-4.51); Lymphocyte % 29.2 % (19-41); Mean Corp Hgb Conc 32.1 g/dL (32-36); Mean Corpuscular Hgb 31.2 pg (27.0-32.0); Mean Corpuscular Volume 97.3 fL (81-99); Mean Platelet Vol. 10.8 fl (6.2-12.0); Monocyte# 0.43 X10^3/uL; Monocyte% 8.5 % (0-10); NRBC Flagged by Analyzer 0 % (0-5); Neutrophil # 3.07 X10^3/uL (2.7-7.7); Neutrophil % 60.7 % (47-70); Platelet Count 218 K/mm3 (150-450); RBC Distribution Width CV 11.4 % (11.6-14.6); RBC Distribution Width SD 40.7 fl (35.1-43.9); Red Blood Count 4.13 M/mm3 (4.2-5.4); White Blood Count 5.1 K/mm3 (4.4-11.0)
[2024-07-11 12:50] LABS: ALB/GLOB Ratio 1.1 RATIO (0.9-2.4); AST(SGOT) 13 U/L (15-37); Alanine Aminotransfer ALT/SGPT 22 U/L (13-56); Albumin, Serum 3.5 g/dL (3.2-5.0); Alkaline Phosphatase 60 U/L (45-117); Anion Gap 3 (5-15); BUN 22 mg/dL (7-18); Chloride 108 mmol/L (98-107); Creatinine, Serum 0.92 mg/dL (0.55-1.02); EST Glomerular Filtration Rate 67 mL/min (>60); Est Glom Filt Rate - Afr Amer 81 mL/min (>60); Globulin 3.1 g/dL (2.2-4.2); Glucose 161 mg/dL (74-106); Potassium 4.4 mmol/L (3.5-5.1); Protein, Total 6.6 g/dL (6.4-8.2); Sodium Level 140 mmol/L (136-145)
== END | disposition home or self-care (01) ==
LOC: BIMLAB 09:21
PROVIDERS: PCP Internal Medicine; Referring Provider Internal Medicine; Visit Provider Internal Medicine
DX: F41.1 Generalized anxiety disorder (principal); F41.0 Panic disorder [episodic paroxysmal anxiety]; K76.0 Fatty (change of) liver, not elsewhere classified; R74.8 Abnormal levels of other serum enzymes
CPT/HCPCS: 36415; 80053; 85025

== ENCOUNTER → 2024-08-14 | Outpatient (CLI) | payer MEDICAID, SELFPAY ==
--- NOTE | 2024-08-14 10:56 | BI_ITS ---
MAMMOGRAPHY - BILATERAL SCREENING REASON FOR EXAM: Female, 58 years old. Routine annual screening examination. PERTINENT HISTORY: Non-contributory. History of prior right stereotactic breast biopsies. TECHNIQUE: Digital bilateral breast karen (3D mammographic acquisition) in the CC and MLO projections. 2-D mediolateral oblique (MLO) and craniocaudad (CC) views of both breasts were obtained. CAD: Full Field Digital Mammography with Computer Added Detection was performed. COMPARISON: Comparison is made with prior study July 20, 2023. FINDINGS: Breast Composition: The breasts are extremely dense, which lowers the sensitivity of mammography. There are no dominant masses or suspicious calcifications. 2 tissue markers are seen in the deep upper lateral aspect of the right breast. No other significant abnormalities are identified. There has been no significant change since the prior study. BI/SCRN MAMM (CAD)W/KAREN BILAT IMPRESSION: Stable bilateral screening mammogram. Yearly follow-up mammogram recommended. (A) ASSESSMENT CATEGORY: BIRADS Category 2: Benign. A letter regarding these results will be sent to the patient by the facility within 30 days. Approximately 10% of breast cancers are not detected by mammography. A normal mammogram should not delay biopsy of a clinically suspicious abnormality. [id number] Electronically Signed: Constantino Rosa MD at 12:07 EST ,
== END | disposition home or self-care (01) ==
LOC: OPBI 10:56
PROVIDERS: PCP Internal Medicine; Referring Provider Internal Medicine; Visit Provider Internal Medicine
DX: Z12.31 Encounter for screening mammogram for malignant neoplasm of breast (principal)
CPT/HCPCS: 77063; 77067

== ENCOUNTER → 2024-10-28 | Outpatient (CLI) | payer MEDICAID, SELFPAY ==
--- NOTE | 2024-10-28 07:59 | ECHOD_ITS ---
Reason For Study Reason For Study: Mitral Valve Prolapse Procedure This was a 2D Doppler, Color Flow transthoracic echocardiogram. Exam performed in department. Left Ventricle Normal size and thickness. The left ventricular ejection fraction is 60 %. Normal diastololic function. Right Ventricle Normal right ventricle. Atria The left and right atria are normal. Mitral Valve Equivocal prolapse of the anterior mitral valve leaflet. Mild posteriorly directed mitral valve regurgitation. Tricuspid Valve Mild tricuspid valve insufficiency. Normal pulmonary artery pressure. Aortic Valve Trisinus/trileaflet aortic valve. Pulmonic Valve The pulmonic valve is not well visualized. Great Vessels Normal sized aortic root. Pericardium/Pleural No pericardial effusion. MMode/2D Measurements & Calculations LVIDd: 4.6 cm IVSd: 0.88 cm Ao root diam: 2.9 cm LVIDs: 2.8 cm LVPWd: 0.77 cm RVDd: 3.3 cm FS: 38.9 % LAV(MOD-bp): 44.6 ml LVAd ap4: 24.8 cm2 SV(MOD-sp4): 44.1 ml LAV(MOD-bp) Indexed: 26.4 ml/m2 LVLd ap4: 6.8 cm SI(MOD-sp4): 26.1 ml/m2 LAV(MOD-sp2): 47.0 ml EDV(MOD-sp4): 73.5 ml LAV(MOD-sp4): 38.8 ml EDV(sp4-el): 76.8 ml LVAs ap4: 14.1 cm2 LVLs ap4: 5.6 cm ESV(MOD-sp4): 29.5 ml ESV(sp4-el): 30.0 ml EF(MOD-sp4): 59.9 % EF(sp4-el): 61.0 % SV(sp4-el): 46.8 ml LA A4 area: 15.5 cm2 LA dimension(2D): 3.2 cm RA A4 area: 12.5 cm2 TAPSE: 2.3 cm Time Measurements MV dec time: 0.17 sec Doppler Measurements & Calculations MV E max chaz: 85.2 cm/sec Lat Peak E' Chaz: 17.5 cm/sec Med Peak E' Chaz: 14.2 cm/sec MV A max chaz: 46.9 cm/sec E/E' lat: 4.9 E/E' med: 6.0 MV E/A: 1.8 MV V2 max: 99.7 cm/sec MV P1/2t max chaz: 100.3 cm/sec Ao V2 max: 96.9 cm/sec MV max P.0 mmHg MV P1/2t: 66.0 msec Ao max P.8 mmHg MV V2 mean: 40.2 cm/sec Ao V2 mean: 67.0 cm/sec MV mean P.85 mmHg MV dec slope: 445.3 cm/sec2 Ao mean P.1 mmHg MV V2 VTI: 31.8 cm MVA(P1/2t): 3.3 cm2 Ao V2 VTI: 23.6 cm AV (velocity ratio): 0.91 LV V1 max: 89.0 cm/sec PA V2 max: 95.6 cm/sec TR max chaz: 229.9 cm/sec LV V1 max P.2 mmHg PA V2 mean: 67.2 cm/sec TR max P.1 mmHg LV V1 mean P.6 mmHg LV V1 mean: 57.4 cm/sec LV V1 VTI: 21.5 cm ECHO/Echo Complete Interpretation Summary The left ventricular ejection fraction is 60 %. Equivocal prolapse of the anterior mitral valve leaflet. Mild posteriorly direc michelle mitral valve regurgitation. Mild tricuspid valve insufficiency. Ordering Physician: Opal Jay Referring Physician: Hanna Nuñez Performed By: Benjie Chavez RCS
== END | disposition home or self-care (01) ==
LOC: CVS 07:59
PROVIDERS: PCP Internal Medicine; Referring Provider Internal Medicine Cardiovascular Disease; Visit Provider Internal Medicine Cardiovascular Disease
DX: Z86.79 Personal history of other diseases of the circulatory system (principal)
CPT/HCPCS: 93306

== ENCOUNTER 2025-01-03 12:41 | Emergency (ER) | payer MEDICAID, SELFPAY ==
[2025-01-03 12:41] VITALS: BP 120/82; PULSE 65; RESP 24; TEMP 36.6; O2SAT 99; BMI 19.7
--- NOTE | 2025-01-03 12:49 | CT_ITS ---
PROCEDURE: ABDOMEN/PELVIS WITHOUT CONT 01/03/2025 REASON FOR EXAM: KIDNEY STONE TECHNIQUE: Abdomen and pelvis CT without intravenous contrast. Noncontrast technique limits evaluation of the abdominal and pelvic viscera. Coronal and Sagittal reconstruction series were provided. One or more dose reduction techniques were used (e.g., Automated exposure control, adjustment of the mA and/or kV according to patient size, use of iterative reconstruction technique). PATIENT PREPARATION: Per protocol ORAL CONTRAST TYPE: None. AMOUNT: mL COMPARISON: 10/28/2023 FINDINGS: Lung bases: Mild dependent atelectasis Liver: Normal size. No obvious mass. Gallbladder: Unremarkable. Spleen: Normal size. Pancreas: Normal size. No surrounding inflammation. Adrenals: Unremarkable. Kidneys: 3 mm obstructing stone at the right ureterovesical junction with mild ureteral dilatation and hydronephrosis. Bladder: Unremarkable. Reproductive Organs: Unremarkable. Bowel: No bowel obstruction. Appendix: The appendix is not identified. There is no inflammatory process identified in the right lower quadrant to suggest appendicitis. Lymph nodes: Unremarkable. Vasculature: The abdominal aorta and IVC contours are normal. Noncontrast technique limits evaluation. Peritoneum / Retroperitoneum: Unremarkable. Bones: Unremarkable. Ankle. CT/Abdomen/Pelvis without Cont IMPRESSION: 3 mm obstructing stone of the right ureterovesical junction with mild ureteral dilatation and hydronephrosis. Reading Location: [id number]
--- NOTE | 2025-01-03 12:50 | EDS_ITS ---
HPI History of Present Illness Chief Complaint: Flank Pain Narrative Narrative: 59-year-old female who denies significant past medical history presents with right sided flank pain radiating to her groin that began suddenly at 930 this morning. She states the pain started in her back, and now is radiating towards the front and lower towards her pelvis. She denies any fevers or chills, but she was outside so does feel cold. She denies any dysuria or hematuria. No exacerbating or alleviating factors to her right flank pain. She is nauseated but has not vomited. [facility] Medical History Memory changes Dermatitis Perineal abscess Migraine headache Chest pain Insomnia Hemorrhoids Generalized anxiety disorder with panic attacks Suicide attempt Health care maintenance Adhesive capsulitis of right shoulder Pain Depression Anxiety Anemia Fatty liver Difficulty swallowing Gastric reflux Non-smoker History of stress test Cardiology follow-up encounter Cervical radiculopathy Subacromial bursitis of right shoulder joint Elevated ferritin Dysphagia Fatty liver disease, nonalcoholic Elevated liver enzymes Headache Right shoulder pain RUQ pain Anxiety and depression Breast cyst H/O emotional problems Hemicrania continua Frequent headaches History of skin cancer Home Medications ?Medication ?Instructions ?Recorded ?Last Taken ?Type hydrocortisone 2.5 % topical cream 1 applic topical BI D PRN rash #30 02/13/24 Unknown Rx grams topiramate 25 mg tablet (Topamax) 25 mg PO BID #180 ta bs 10/16/24 Unknown Rx duloxetine 30 mg capsule,delayed 30 mg PO BID #60 caps 12/05/24 Unknown Rx release estradiol 2 mg tablet 2 mg PO DAILY #90 tabs 12/10 Unknown Rx trazodone 50 mg tablet 50 mg PO QHS PRN insomnia #6 0 tabs 12/15/24 Unknown Rx indomethacin 25 mg capsule 25 mg PO ONCE PRN headache #30 caps 12/30/24 Unknown Rx ketorolac 10 mg tablet 10 mg PO TID PRN pain 5 days #15 01/03/25 Unknown Rx tabs oxycodone-acetaminophen 5 mg-325 1 tab PO Q6H PRN pain 3 days #12 01/03/25 Unknown Rx mg tablet (Percocet) tabs tamsulosin 0.4 mg capsule (Flomax) 0.4 mg PO DAILY #10 caps 01/03/25 Unknown Rx Allergy/AdvReac Type Severity Reaction Status Date / Time iodine Allergy Intermediate Hives Verified 01/03/25 12:44 metronidazole Allergy Intermediate Rash Verified 01/03/25 12:44 sulfamethoxazole (From Allergy Intermediate Rash Verified 01/03/25 12:44 Bactrim) trimethoprim (From Bactrim) Allergy Intermediate Rash Verified 01/03/25 12:44 promethazine (From Phenergan) Allergy Mild Nausea Verified 01/03/25 12:44 Sulfa (Sulfonamide Allergy PT UNSURE Verified 01/03/25 12:44 Antibiotics) (sulfa drugs) OF REACTION Family History Father Skin cancer Surgical History Status post incision and drainage S/P hemorrhoidectomy Hx of colonoscopy History of hysterectomy History of tonsillectomy Social History household members: children housing: house Smoking Status: Never smoker alcohol intake: never substance use type: does not use caffeine: Yes (3 x/ wk) Type: tea what type of physical activity do you participate in: none ROS ROS ED ROS Narrative Review of systems positive for right flank pain. No fever. Positive nausea but no vomiting. No dysuria or hematuria. No exacerbating or alleviating factors. EXAM Physical Exam Narrative Exam Narrative: Afebrile. Vital signs noted. Nontoxic-appearing. However, appears uncomfortable lying on the cot. Cardiovascular examination reveals a regular rate and rhythm. Lungs are clear to auscultation bilaterally. Abdomen soft and nontender without guarding or rebound. Positive bowel sounds. No appreciable CVA tenderness to percussion, right. Neurological examination nonfocal and nonlateralizing. Const Vital Signs: 01/03/25 12:41 01/03/25 14:07 Temperature 97.9 F 97.8 F Temperature Source Oral Pulse Rate 65 64 Respiratory Rate 24 H 18 Blood Pressure 120/82 H 108/78 Blood Pressure Mean 94 88 Pulse Ox 99 99 Oxygen Delivery Method Room Air MDM MDM MDM Narrative Medical decision making narrative: Differential diagnosis includes but not limited to ureterolithiasis versus pyelonephritis versus diverticulitis. History and physical does not necessarily support diverticulitis as she is not having problem with bowel movements. Given the sudden onset, I favor ureterolithiasis. She was administered ketorolac and ondansetron as well as IV fluids at 250 mL/h. I do feel that CT imaging is indicated as well as basic laboratory work and urinalysis. I reviewed her laboratory work and she has normal white count of 6.3 with hemoglobin 13.2, hematocrit 39.4, platelet count 218. Electrolyte panel shows BUN elevated at 27 with creatinine 0.90. Glucose 111 with normal anion gap of 13. WBC count of the urine is normal at 0-5. I do not feel antibiotics are indicated. She is negative for nitrites as well. I reviewed the radiology report of the CT of the abdomen and pelvis and she has a 3 mm right UVJ stone. She has hydroureter and hydronephrosis as well. At this point in time, she was given morphine here after Toradol. She was told to stop her indomethacin use and she was written for Toradol, Flomax, and Percocet. She was referred to the urologist on-call, Dr. Tiffany Singh. Return instructions to the emergency department were reviewed. Disposition is discharged home in stable condition. History & Record Review Discussion w/independent historian: Patient Lab Data Attestation: I reviewed the patient's lab results. Labs: Laboratory Results - last 24 hr 01/03/25 01/03/25 12:45 13:00 WBC 6.3 RBC 4.07 L Hgb 13.2 Hct 39.4 MCV 96.8 MCH 32.4 H MCHC 33.5 RDW Std Deviation 44.9 H RDW Coeff of [place] 12.8 Plt Count 218 MPV 9.9 Immature Gran % (Auto) 0.300 Neut % (Auto) 54.6 Lymph % (Auto) 33.9 [place] % (Auto) 9.8 Eos % (Auto) 0.8 Baso % (Auto) 0.6 Absolute Neuts (auto) 3.4 Absolute Lymphs (auto) 2.12 Nucleated RBC % 0 Sodium 140 Potassium 3.4 Chloride 105 Carbon Dioxide 22.3 Anion Gap 13 BUN 27 H Creatinine 0.90 Estim Creat Clear Calc 63.25 Est GFR (MDRD) Non-Af 74 BUN/Creatinine Ratio 30.3 H Glucose 111 H Calcium 9.2 Urine Color Yellow Urine Clarity Sl. Cloudy Urine pH 6.0 Ur Specific [place] 1.010 Urine Protein 30 H Urine Glucose (UA) Normal Urine Ketones Negative Urine Occult Blood 50 H Urine Nitrite Negative Urine Bilirubin Negative Urine Urobilinogen Normal Ur Leukocyte Esterase Negative Urine RBC 0 SEEN Urine WBC 0-5 SEEN Ur Squamous Epith Cells 0-5 SEEN Urine Bacteria 2+ Urine Mucus 1+ Radiography Diagnostic Testing: Clinical Impression(s) from Imaging Studies Abdomen/Pelvis CT 01/03/25 12:49 IMPRESSION: 3 mm obstructing stone of the right ureterovesical junction with mild ureteral dilatation and hydronephrosis. Reading Location: [id number] Discharge Plan Triage Chief Complaint: Flank Pain ED Provider: Sumanth Ortiz Dx/Rx/DC Orders Clinical Impression: Right flank pain, Ureterolithiasis Instructions: ED Kidney Stone with Pain Prescriptions: New ketorolac 10 mg tablet 10 mg PO TID PRN (Reason: pain) 5 Days Qty: 15 0RF tamsulosin [Flomax] 0.4 mg capsule 0.4 mg PO DAILY Qty: 10 0RF oxycodone-acetaminophen [Percocet] 5-325 mg tablet 1 tab PO Q6H PRN (Reason: pain) 3 Days Qty: 12 0RF No Action hydrocortisone 2.5 % cream 1 applic topical BID PRN (Reason: rash) Qty: 30 3RF duloxetine 30 mg capsule,delayed release(DR/EC) 30 mg PO BID Qty: 60 1RF Rx Instructions: Take 30 mg daily x 1 week then increase to BID topiramate [Topamax] 25 mg tablet 25 mg PO BID Qty: 180 0RF estradiol 2 mg tablet 2 mg PO DAILY Qty: 90 0RF trazodone 50 mg tablet 50 mg PO QHS PRN (Reason: insomnia) Qty: 60 1RF indomethacin 25 mg capsule 25 mg PO ONCE PRN (Reason: headache) Qty: 30 2RF Rx Instructions: administer with food or milk. STOP ALL other NSAIDS while taking this Primary Care Provider: NAVEEN COLLINS Referrals: Hanna Nuñez MD [Med Staff - Active Staff] - Tiffany Singh MD [Med Staff - Active Staff] - 3-5 Days Activity Restrictions/Additional Instructions: Take Toradol as needed for pain, but do not take indomethacin with it, while taking it. Take Flomax once daily to help with smooth muscle relaxation. Take Percocet as needed for breakthrough pain. It is important for you to follow-up with urology within the next 3 to 5 days. Return to the emergency department with fever, intractable pain, new or worsening symptoms. Print Language: Jordanian Disposition Disposition: Home, Self Care Discharge Date/Time: 01/03/25 14:08
[2025-01-03] MEDS: Ondansetron 4 MG/2 ML Vial IV (12:56)
[2025-01-03] MEDS: Ketorolac 15 MG/ML Vial IV (12:56)
[2025-01-03 12:57] LABS: Absolute Lymphocyte Count 2.12 X10^3/uL (0.83-4.51); Absolute Neutrophil Count 3.4 X10^3/uL (2.0-7.7); Basophil# 0.04 X10^3/uL; Basophil% 0.6 % (0-1); Eosinophil# 0.05 X10^3/uL; Eosinophils% 0.8 % (0-5); Hematocrit 39.4 % (37-47); Hemoglobin 13.2 g/dL (12.0-15.0); Lymphocyte # 2.12 X10^3/ul (0.83-4.51); Lymphocyte % 33.9 % (19-41); Mean Corp Hgb Conc 33.5 g/dL (32-36); Mean Corpuscular Hgb 32.4 pg (27.0-32.0); Mean Corpuscular Volume 96.8 fL (81-99); Mean Platelet Vol. 9.9 fl (6.2-12.0); Monocyte# 0.61 X10^3/uL; Monocyte% 9.8 % (0-10); NRBC Flagged by Analyzer 0 % (0-5); Neutrophil # 3.41 X10^3/uL (2.7-7.7); Neutrophil % 54.6 % (47-70); Platelet Count 218 K/mm3 (150-450); RBC Distribution Width CV 12.8 % (11.6-14.6); RBC Distribution Width SD 44.9 fl (35.1-43.9); Red Blood Count 4.07 M/mm3 (4.2-5.4); White Blood Count 6.3 K/mm3 (4.4-11.0)
[2025-01-03 13:03] LABS: Red Blood Cells-Urine 0 SEEN /hpf (0-5)
[2025-01-03 13:06] LABS: Color, Urine Yellow (Yellow); Glucose, Dipstick Normal (Normal); Ketone-Dipstick Negative (Negative); Leukocyte Esterase-Dipstick Negative /ul (Negative); Nitrite-Dipstick Negative (Negative); Occult Blood-Urine 50 /ul (Negative); Protein-Dipstick 30 mg/dl (Negative); Urine Bilirubin Dipstick Negative (Negative); Urine Clarity Sl. Cloudy (Clear); Urine Urobilinogen Normal (Normal)
[2025-01-03] MEDS: 0.9% Normal Saline (1000mL) 1,000 ML 250 ML IV (13:13)
[2025-01-03 13:17] LABS: Bacteria 2+ /hpf (None Seen); Mucous, Urine 1+ /hpf (<or=2+); Squamous Epithelial Cells - UA 0-5 SEEN /hpf (5-10); White Blood Cells 0-5 SEEN /hpf (0-5)
[2025-01-03 13:21] LABS: Anion Gap 13 (5-15); BUN 27 mg/dL (4-19); BUN/Creat Ratio 30.3 RATIO (10-20); Calcium,Total 9.2 mg/dL (7.6-11.0); Carbon Dioxide 22.3 mmol/L (21.0-32.0); Chloride 105 mmol/L (98-108); EST Glomerular Filtration Rate 74 (>60); Estimated Creatinine Clearance 63.25 ml/min (50-250); Glucose 111 mg/dL (70-99); Potassium 3.4 mmol/L (3.3-5.1); Sodium Level 140 mmol/L (133-145)
[2025-01-03] MEDS: Morphine 4 MG/ML Syringe IV (13:42)
[2025-01-03 14:07] VITALS: BP 108/78; PULSE 64; RESP 18; TEMP 36.6; O2SAT 99
== END 2025-01-03 14:08 | disposition home or self-care (01) ==
PROVIDERS: Emergency Provider Emergency Medicine; PCP Nurse Practitioner; Visit Provider Emergency Medicine
DX: N13.2 Hydronephrosis with renal and ureteral calculous obstruction (principal); R11.0 Nausea; Z79.899 Other long term (current) drug therapy; Z90.710 Acquired absence of both cervix and uterus
CPT/HCPCS: 74176; 80048; 81001; 85025; 96361; 96374; 96375; 99282; J2405